=== PATIENT | male | born 1955 | race Caucasian/White ===

== ENCOUNTER 2016-07-27 08:09 | Inpatient (IN) | payer OTHER ==
[~2016-07-27] VITALS: Ht 170.2 cm; Wt 78.5 kg
[2016-07-27 08:13] VITALS: Ht 170.2 cm; Wt 78.5 kg
[2016-07-27] MEDS ORDERED: NITROGLYCERIN 2% 1 GM OINT PKT TD STA (08:26)
[2016-07-27] MEDS ORDERED: ASPIRIN 81 MG TAB PO STA (08:26)
--- NOTE | 2016-07-27 08:44 | RADRPT ---
PROCEDURE: XR Chest. CLINICAL INDICATION: Chest pain. TECHNIQUE: Single frontal view. COMPARISON: None. FINDINGS: There are calcifications in both lungs consistent with previous granulomatous disease. The lungs ar e otherwise clear with no airspace or interstitial disease. The heart size is normal. There is calcification in the aorta consistent with atherosclerosis. There is no pleural effusion. There is no pneumothorax. IMPRESSION: 1. Previous granulomatous disease. 2. Atherosclerosis. 3. Otherwise normal chest radiograph. RPTAT: QQ .Truong Castellano MD, Date Time Electronically viewed and signed by .Truong Castellano MD, on 07/27/2016 08:44 .R/
[2016-07-27] MEDS: NITROGLYCERIN (SL) 0.4 MG TAB SL PRN ×3 (08:48→08:57)
[2016-07-27 08:53] LABS: BASOPHIL # 0.1 10^3/ul (0.0-0.1); EOSINOPHILS # 0.1 10^3/ul (0.0-0.5); EOSINOPHILS % 1.5 % (0.0-7.0); HEMATOCRIT 36.3 % (42.0-52.0); HEMOGLOBIN 12.3 g/dl (14.0-18.0); LYMPHOCYTES # 2.4 10^3/ul (0.8-2.9); MEAN CORPUSCULAR HEMOGLOBIN 31.4 pg (29.0-33.0); MEAN CORPUSCULAR HGB CONC 33.8 g/dl (32.0-37.0); MEAN CORPUSCULAR VOLUME 92.9 fl (82.0-101.0); MONOCYTE # 0.7 10^3/ul (0.3-0.9); MONOCYTES % 9.8 % (0.0-11.0); NEUTROPHIL # 3.4 10^3/ul (1.6-7.5); NEUTROPHILS % 51.7 % (39.0-77.0); PLATELET COUNT 323 10^3/UL (140-440); RED BLOOD COUNT 3.91 10^6/ul (4.70-6.10); RED CELL DISTRIBUTION WIDTH 16.6 % (11.5-14.5); UNCORRECTED WBC 6.6 10^3/ul (4.8-10.8); WHITE BLOOD COUNT 6.6 10^3/ul (4.8-10.8)
[2016-07-27] MEDS ORDERED: IPRA4AER INHALATION (08:53)
[2016-07-27] MEDS ORDERED: ADV50050 INHALATION (08:53)
[2016-07-27] MEDS ORDERED: ALBU8.5H3 INH (08:54)
[2016-07-27] MEDS ORDERED: PROP10TA6 PO (08:57)
[2016-07-27] MEDS ORDERED: CLOP75TA27 PO (08:57)
[2016-07-27] MEDS ORDERED: PANT40TA3 PO (08:58)
[2016-07-27] MEDS ORDERED: ASPI-664 PO (08:58)
[2016-07-27] MEDS ORDERED: ATOR20TA38 PO (08:58)
[2016-07-27 09:03] LABS: INR 0.88; PARTIAL THROMBOPLASTIN TIME 30.2 Sec (25.0-35.0); PROTIME 11.9 Sec (12.2-14.2); PT RATIO 0.9
[2016-07-27 09:07] LABS: CHLORIDE 107 mmol/L (97-110); SODIUM 149 mmol/L (135-144)
[2016-07-27 09:08] LABS: POTASSIUM 4.8 mmol/L (3.5-5.1)
[2016-07-27] MEDS ORDERED: ONDANSETRON 4 MG INJ IV STA (09:08)
[2016-07-27] MEDS ORDERED: morphine 4 MG/ML VIAL IV STA ×2 (09:08→13:13)
[2016-07-27 09:10] LABS: ANION GAP 17 (8-16); CARBON DIOXIDE 30 mmol/L (21-31); CREATININE 0.94 mg/dl (0.61-1.24)
[2016-07-27 09:11] LABS: BLOOD UREA NITROGEN 20 mg/dl (7-20); CALCIUM 10.1 mg/dl (8.4-10.2); GLUCOSE 98 mg/dl (70-220)
[2016-07-27 09:12] LABS: CONDITION 1; LH ANALYZER COMMENTS 1
[2016-07-27 09:25] LABS: TROPONIN-I < 0.012 ng/ml (0.00-0.12)
[2016-07-27] MEDS ORDERED: ACETAMINOPHEN 325 MG TAB PO PRN ×2 (10:00→10:30)
[2016-07-27] MEDS ORDERED: ONDANSETRON 4 MG INJ IV PRN (10:00)
[2016-07-27] MEDS ORDERED: DOCUSATE SODIUM 100 MG CAP PO PRN (10:30)
[2016-07-27] MEDS ORDERED: NITROGLYCERIN (SL) 0.4 MG TAB SL PRN (10:30)
[2016-07-27] MEDS ORDERED: ALBUTEROL HFA 8 GM INHALER INH PRN (10:30)
[2016-07-27] MEDS ORDERED: ONDANSETRON 4 MG TAB PO PRN (10:30)
[2016-07-27] MEDS ORDERED: NACL 0.9% 3 ML SYG IV SCH (10:30)
--- NOTE | 2016-07-27 11:19 | ERA ---
ER Documentation Chief Complaint Date/Time DATE: 07/27/16 TIME: 11:17 Chief Complaint chest pain this morning at 0500 and sob hx 2 stents HPI Patient is a 61-year-old male with coronary disease who presents with chest pain. The symptoms started at 5 AM. He is concerned for a heart attack as he has had 2 stents placed in the past. He has constant pain which waxes and wanes. It radiates to his left shoulder. The patient took 81 mg of aspirin and 2 nitroglycerin tablets prior to coming to the ER. This is the patient's first visit to the ER. ROS All systems reviewed and are negative except as per history of present illness. Medications Home Meds Reported Medications Pantoprazole* (Protonix*) 40 Mg Tablet.dr, 40 MG PO DAILY, TAB 07/27/16 Aspirin (Low Dose Aspirin) 81 Mg Tablet.dr, 81 MG PO DAILY, #30 TAB 07/27/16 Atorvastatin Calcium* (Atorvastatin Calcium*) 20 Mg Tablet, 20 MG PO QHS, #30 TAB 07/27/16 Clopidogrel Bisulfate (Clopidogrel) 75 Mg Tablet, 75 MG PO DAILY, #30 TAB 07/27/16 Propranolol Hcl* (Propranolol Hcl*) Unknown Strength Tablet, PO DAILY, TAB PT SAYS HE TAKE MED HES NOT SURE HOW OFTEN HE TAKES OR THE DOSAGE PHARM HAS NO RECORD OF IT 07/27/16 Albuterol Sulfate* (Proair HFA*) 8.5 Gm Hfa.aer.ad, 2 PUFF INH Q6H Y for WHEEZING AND SOB, #1 INHALER 07/27/16 Albuterol/Ipratropium* (Combivent Respimat*) 20-100 Mcg/Inh - 4 Gm Aer.w.adap, 1 PUFF INHALATION QID, #1 INHALER 07/27/16 Salmeterol Xinaf-Fluticasone* (Advair*) 500/50 Diskus Inhaler, 1 INH INHALATION BID, #1 INHALER 07/27/16 Allergies Allergies: Coded Allergies: Penicillins (Verified Allergy, Severe, 07/27/16) Iodine and Iodide Containing Produc (Verified Allergy, Unknown, 07/27/16) PMhx/Soc History of Surgery: Yes (X 2 CARDO STENT PLACED IN MAR 2016 ) Anesthesia Reaction: No Hx Neurological Disorder: No Hx Respiratory Disorders: No Hx Cardiac Disorders: Yes (M.I. 2016) Hx Psychiatric Problems: No Hx Miscellaneous Medical Probl: No Hx Alcohol Use: No Hx Substance Use: No Hx Tobacco Use: No Smoking Status: Never smoker FmHx Family History: coronary disease Physical Exam Vitals Vital Signs Date Time Temp Pulse Resp B/P Pulse Ox O2 Delivery O2 Flow Rate FiO2 07/27/16 09:29 74 22 131/80 99 Nasal Cannula 2.0 07/27/16 08:55 72 116/72 100 Room Air 07/27/16 08:36 Nasal Cannula 2 07/27/16 08:28 98.6 70 22 155/77 100 Room Air 07/27/16 08:13 98.3 74 20 169/76 99 Physical Exam Const: Mild distress secondary to pain Head: Atraumatic Eyes: Normal Conjunctiva ENT: Normal External Ears, Nose and Mouth. Neck: Full range of motion..~ No meningismus. Resp: Clear to auscultation bilaterally Cardio: Regular rate and rhythm, no murmurs Abd: Soft, non tender, non distended. Normal bowel sounds Skin: No petechiae or rashes Back: No midline or flank tenderness Ext: No cyanosis, or edema Neur: Awake and alert Psych: Normal Mood and Affect Result Diagram: 07/27/16 0830 07/27/16 0830 Results 24 hrs Laboratory Tests Test 07/27/16 08:30 Activated Partial Thromboplast Time 30.2Sec Anion Gap 17 Basophils # 0.110^3/ul Basophils % 1.0% Blood Morphology Comment Blood Urea Nitrogen 20mg/dl Calcium Level 10.1mg/dl Carbon Dioxide Level 30mmol/L Chloride Level 107mmol/L Creatinine 0.94mg/dl Eosinophils # 0.110^3/ul Eosinophils % 1.5% Glucose Level 98mg/dl Hematocrit 36.3% Hemoglobin 12.3g/dl INR International Normalized Ratio 0.88 Lymphocytes # 2.410^3/ul Lymphocytes % 36.0% Mean Corpuscular Hemoglobin 31.4pg Mean Corpuscular Hemoglobin Concent 33.8g/dl Mean Corpuscular Volume 92.9fl Mean Platelet Volume 9.0fl Monocytes # 0.710^3/ul Monocytes % 9.8% Neutrophils # 3.410^3/ul Neutrophils % 51.7% Nucleated Red Blood Cells # 0.010^3/ul Nucleated Red Blood Cells % 0.0/100WBC Platelet Count 73974^3/UL Potassium Level 4.8mmol/L Prothrombin Time 11.9Sec Prothrombin Time Ratio 0.9 Red Blood Count 3.9110^6/ul Red Cell Distribution Width 16.6% Sodium Level 149mmol/L Troponin I < 0.012ng/ml White Blood Count 6.610^3/ul Current Medications Medications (Trade) Dose Ordered Sig/Amanda Route PRN Reason Start Time Stop Time Status Last Admin Dose Admin Aspirin (Aspirin) 162 mg ONCE STAT PO 07/27/16 08:26 07/27/16 08:32 DC 07/27/16 08:45 Nitroglycerin (Nitroglycerin 2% Oint) 1 inch ONCE STAT TD 07/27/16 08:26 07/27/16 08:32 DC 07/27/16 08:49 Nitroglycerin (Nitroglycerin (Sl Tab) 0.4 Mg) 1 tab Q5M UP TO 3 DOSES PRN SL CHEST PAIN 07/27/16 08:30 07/27/16 08:57 Morphine Sulfate (morphine) 4 mg ONCE STAT IV 07/27/16 09:08 07/27/16 09:09 DC 07/27/16 09:33 Ondansetron HCl (Zofran Inj) 4 mg ONCE STAT IV 07/27/16 09:08 07/27/16 09:09 DC 07/27/16 09:33 Ondansetron HCl (Zofran Inj) 4 mg ER BRIDGE PRN IV NAUSEA AND/OR VOMITING 07/27/16 10:00 07/28/16 09:59 Acetaminophen (Tylenol Tab) 650 mg ER BRIDGE PRN PO MILD PAIN/FEVER 07/27/16 10:00 07/28/16 09:59 IV Flush (NS 3 ml) 3 ml PER PROTOCOL IV 07/27/16 10:30 UNV Ondansetron HCl (Zofran Tab) 4 mg Q6H PRN PO NAUSEA AND/OR VOMITING 07/27/16 10:30 UNV Aspirin (Aspirin) 81 mg DAILY PO 07/28/16 09:00 UNV Nitroglycerin (Nitroglycerin (Sl Tab) 0.4 Mg) 1 tab Q5M PRN SL CHEST PAIN 07/27/16 10:30 UNV Acetaminophen (Tylenol Tab) 650 mg Q6H PRN PO PAIN LEVEL 1-3 OR FEVER 07/27/16 10:30 UNV Morphine Sulfate (morphine) 1 mg Q4H PRN IV PAIN LEVEL 7-10 07/27/16 10:30 UNV Docusate Sodium (Colace) 100 mg Q12H PRN PO CONSTIPATION 07/27/16 10:30 UNV Pantoprazole (Protonix Tab) 40 mg DAILY@06 PO 07/28/16 06:00 UNV Enoxaparin Sodium (Lovenox) 40 mg DAILY SC 07/28/16 09:00 UNV Albuterol (Ventolin Hfa) 2 puff Q6H PRN INH WHEEZING AND SOB 07/27/16 10:30 UNV Aspirin (Halfprin) 81 mg DAILY PO 07/28/16 09:00 UNV Atorvastatin Calcium (Lipitor) 20 mg QHS PO 07/27/16 21:00 UNV Clopidogrel Bisulfate (plaVIX) 75 mg DAILY PO 07/28/16 09:00 UNV Pantoprazole (Protonix Tab) 40 mg DAILY PO 07/28/16 09:00 UNV Salmeterol Xinafoate/ Fluticasone (Advair 500/50 Diskus) 1 inh BID INH 07/27/16 21:00 UNV Miscellaneous Information 1 puff QID INHALATION 07/27/16 13:00 UNV Metoprolol Tartrate (Lopressor) 25 mg BID PO 07/27/16 21:00 UNV Procedures/MDM EKG #1 read by me: Rate/Rhythm: Regular rate and rhythm at a rate of 72 Intervals: Normal Impression: No evidence of ischemia or arrhythmia EKG #2 pending at this time. PROCEDURE: XR Chest. CLINICAL INDICATION: Chest pain. TECHNIQUE: Single frontal view. COMPARISON: None. FINDINGS: There are calcifications in both lungs consistent with previous granulomatous disease. The lungs are otherwise clear with no airspace or interstitial disease. The heart size is normal. There is calcification in the aorta consistent with atherosclerosis. There is no pleural effusion. There is no pneumothorax. IMPRESSION: 1. Previous granulomatous disease. 2. Atherosclerosis. 3. Otherwise normal chest radiograph. RPTAT: QQ .Truong Castellano MD, MD Date Time Electronically viewed and signed by .Truong Castellano MD, MD on 07/27/2016 08:44 Patient is a 61-year-old male with coronary disease who presents with chest pain. The patient has anemia with a hemoglobin of 12.3 but does not require transfusion at this time. The patient was given aspirin nitroglycerin as well as morphine for possible acute coronary syndrome. At this point I doubt pneumonia, pneumothorax, pulmonary embolism, or aortic dissection. However given his age and cardiac risk factors I do believe he needs to be admitted to a telemetry bed to rule out acute coronary syndrome. I spoke with Dr. Matos from the panel team for admission as the patient has [employer] insurance and has never been admitted before. Departure Diagnosis: Primary Impression: Chest pain Qualified Code: R07.9 - Chest pain, unspecified type Additional Impressions: Anemia Qualified Code: D64.9 - Anemia, unspecified type Hypernatremia Condition: LISBET Nance MD Jul 27, 2016 11:19
[2016-07-27] MEDS: ALBUTEROL/IPRATROPIUM (NEB) 3 ML AMP HHN SCH ×2 (12:48→19:55)
[2016-07-27 13:18] LABS: CREATINE KINASE 68 IU/L (23-200)
[2016-07-27 13:35] LABS: TROPONIN-I < 0.012 ng/ml (0.00-0.12)
[2016-07-27 13:36] LABS: CK-MB 1.12 ng/ml (0.0-2.4)
[2016-07-27] MEDS ORDERED: ALBUTEROL/IPRATROPIUM (NEB) 3 ML AMP HHN PRN (14:30)
[2016-07-27 14:32] LABS: CREATINE KINASE 63 IU/L (23-200)
[2016-07-27 14:43] LABS: CK-MB 1.14 ng/ml (0.0-2.4)
[2016-07-27 14:49] LABS: TROPONIN-I < 0.012 ng/ml (0.00-0.12)
[2016-07-27 16:36] VITALS: TEMP 98.1
[2016-07-27] MEDS: morphine 2 MG INJ IV PRN ×2 (16:49→19:04)
--- NOTE | 2016-07-27 17:46 | RADRPT ---
Echocardiogram Report Patient Name: DREW VELASQUEZ Gender: Male Date: 1955 Study Date: 27-Jul-2016 Dentist/Owner: TOMASA Morales Location: [facility] Ref. Physician: JAQUELINE WHITE Quality: Good Procedures: Transthoracic echocardiogram with complete 2D, M-Mode, and doppler examination. Indications: Chest Pain. 2D/M Mode Doppler Measurement Value Normal Ranges Measurement Value Normal Ranges LVIDd 2D 4.2 3.5 - 5.6 cm AV Peak Butch 1.3 m/sec LVIDs 2D 2.5 2.1 - 4.1 cm AV Peak PG 6.0 mmHg FS 2D 39.5 % LVOT Peak Butch 1.1 m/sec LVPWd 2D 1.0 0.6 - 1.1 cm LVOT Peak PG 5.0 mmHg IVSd 2D 0.9 0.6 - 1.1 cm MV E Peak Butch 0.8 m/sec IVS/LVPW 2D 0.9 MV Decel Time 21 msec AoR Diam 2D 2.4 2.0 - 3.7 cm LA/Ao 2D 2 0 - 1 EDV 2D 73.0 cm3 ESV 2D 16.2 cm3 LA Dimen 2D 3.7 2.3 - 4.0 cm Findings Left Ventricle: Normal left ventricular systolic function. Normal left ventricular cavity size. Normal left ventricular wall thickness. Ejection fraction is visually estimated at 5560 %. Tissue Doppler/Mitral Doppler indices are consistent with impaired relaxation (Stage I diastolic dysfunction). Right Ventricle: Normal right ventricular size. Normal right ventricular systolic function. Left Atrium: The left atrium is normal in size. Right Atrium: The right atrium is normal in size. Mitral Valve: Normal appearance of the mitral valve. Mild mitral annular calcification. Mild mitral valve regurgitation. Aortic Valve: No hemodynamically significant aortic stenosis by doppler. Aortic cusps appear mildly calcified. Trace aortic valve regurgitation. Tricuspid Valve: Normal appearance of the tricuspid valve. Unable to obtain RVSP due to minimal presence of tricuspid regurgitation. Pericardium: Normal pericardium with no significant pericardial effusion. Aorta: Normal aortic root. IVC: Normal size and normal respiratory collapse consistent with normal right atrial pressure. Conclusions 1.The left ventricle is normal in size and systolic function. 2.Estimated left ventricular ejection fraction of 55-60%. 3.Mild left ventricular diastolic dysfunction. Electronically Signed By: Vinod Beasley 27-Jul-2016 17:45:26 -0800 Patient Name: DREW VELASQUEZ Study Date: 27-Jul-[id number]
[2016-07-27] MEDS ORDERED: morphine 4 MG/ML VIAL IV ONE (18:30)
--- NOTE | 2016-07-27 18:33 | HP ---
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 CHIEF COMPLAINT: Chest pain. HISTORY OF PRESENT ILLNESS: This is a 61-year-old gentleman with past medical history of coronary a rtery disease, myocardial infarction, status post PCI, COPD, nicotine abuse in remission, dyslipidem ia, GERD, who presents to [facility] secondary to having left-sided chest pain ___ _ without any diaphoresis or shortness of breath. The pain started yesterday noon, has been continu ous, is not alleviated or aggravated with any medication or movement. On arrival to emergency room, the EKG showed normal sinus rhythm with regular rate and rhythm, normal interval, no evidence of is chemia or arrhythmia. Troponin was found to be negative. The patient was treated with nitroglyceri n and at this time, the patient continues to complain of having minor chest discomfort without any s hortness of breath. Denies any fever, chills, weight gain, weight loss, anorexia. No lower extremi ty edema. No diabetes mellitus, diaphoresis, headache, dysuria, hematuria, urgency, incontinence. No neck pain, no restricted range of motion in upper and lower extremities or any other discomfort. PAST MEDICAL AND SURGICAL HISTORY: As above per HPI. MEDICATIONS 1. ProAir HFA. 2. Combivent. 3. Aspirin. 4. Lipitor. 5. Plavix. 6. Protonix. 7. Propranolol. 8. Solu-Medrol. ALLERGIES: IODINE AND PENICILLIN. SOCIAL HISTORY: Positive for history of smoking, which he quit about a year ago after his bypass, r emote history of alcohol intake. No illicit drugs. Lives at home with his girlfriend. REVIEW OF SYSTEMS: As above per HPI, otherwise 12 review of systems has been found to be negative. PHYSICAL EXAMINATION: VITAL SIGNS: Temperature 98.6, pulse 72, respiration 22, blood pressure 170/70, oxygen saturation 9 8% on 2 liters via nasal cannula. GENERAL APPEARANCE: The patient is lying in bed comfortably without any distress. He is awake, alireza rt, oriented. He is able to answer my questions properly. EYES AND ENT: Conjunctivae and lids are normal. Pupils are normal. Extraocular normal. Hearing g rossly normal. Lips and gums are normal. Oral mucosa is moist. NECK: Supple. Trachea is midline. No lymphadenopathy. RESPIRATORY: Effort is normal. Positive wheezing bilateral upper lung umaña. No crackles, no ral es. GASTROINTESTINAL: Abdomen is soft, nontender, not distended. Bowel sounds present. No guarding, n o rebound. GENITOURINARY: Deferred. MUSCULOSKELETAL: Upper and lower extremities within normal limits. There is no erythema, stasis de rmatitis bilateral lower extremities. NEUROLOGIC: Cranial nerves II through XII are grossly intact. PSYCHIATRIC: Normal judgment and insight. Alert and oriented x3. Mood and affect is normal. LABORATORY WORK AND IMAGING: WBC 6.6, hemoglobin 12.3, hematocrit 36.3, platelets 323. Sodium 149, potassium 4.8, chloride 107, bicarbonate 30, BUN 20, creatinine 0.94, glucose 98, calcium 10. Trop onin negative x2. PT 11.9, INR 0.88. ASSESSMENT AND PLAN: 1. Atypical chest pain with a history of coronary artery disease and percutaneous coronary interven tion. The patient will continue on aspirin, statin and Plavix and will be placed on beta karel. Cardiology has been consulted. We will follow up 2D echocardiogram and serial troponins. 2. Dyslipidemia. Continue statin. Follow up lipid panel. 3. Essential hypertension, well-controlled. 4. History of chronic obstructive pulmonary disease with remote history of nicotine dependency in r emission. Continue Combivent, Advair breathing treatment p.r.n. 5. Deep venous thrombosis prophylaxis, on Lovenox. 6. Gastrointestinal prophylaxis, on proton pump inhibitor. 7. We will continue to monitor patient closely. Further recommendations, management and treatment as per clinical course. Total amount of time was spent for evaluation of patient and admission workup: 45 minutes. Dictated By: JAQUELINE ZABALA/NTS Conf#: [id number] DID#: [id number]
--- NOTE | 2016-07-27 18:40 | CONS ---
Date/Time of Note Date/Time of Note DATE: 07/27/16 TIME: 18:26 Assessment/Plan Assessment/Plan Chief Complaint/Hosp Course Assessment: Chest pain - ruled out for myocardial infarction Coronary artery disease - status post coronary stent x 2 (March 2016, [facility]) Hypertension Dyslipidemia Chronic obstructive pulmonary disease Bilateral lower extremity cellulitis Recommendations: -echocardiogram showed LVEF 55-60%, mild diastolic dysfunction -start carvedilol 6.25mg BID, up titrate as needed/tolerated -start Imdur 30mg daily -continue aspirin 81mg and clopidogrel 75mg daily -continue atorvastatin 20mg daily, follow up lipid panel -consider cardiac stress testing, but patient reports inability to walk on treadmill and prior adverse reaction to pharmacological stress (details unknown ) - will defer to outpatient retail clerk who patient reports he has been seeing for 15 years Problems: Consultation Date/Type/Reason Admit Date/Time Jul 27, 2016 at 17:34 Type of Consultation: Cardiology Reason for Consultation chest pain Referring Provider: JAQUELINE WHITE MD Hx of Present Illness The patient is a 61 year-old male who presents with chest pain. He reports onset of chest pressure while getting up to take a shower at 5 AM this morning. The pain has been waxing and waning since then. Troponins have been negative. He previously had chest pain and underwent implantation of two coronary stents in March 2016. 14 point review of systems negative other than per HPI. Past Medical History Coronary artery disease - status post coronary stent x 2 (March 2016, [facility]) Dyslipidemia Chronic obstructive pulmonary disease Nephrolithiasis History of posterior skull fracture Past Surgical History Cervical spine fusion Lumbar spine fusion Surgery for undescended testicles Tonsillectomy Family History Significant Family History: heart disease (myocardial infarction - mother, brother) Social History Alcohol Use: sober (quit 27 years ago) Smoking Status: Former smoker (quit March 2016) Drug Use: none Exam/Review of Systems Vital Signs Vitals Vital Signs Date Time Temp Pulse Resp B/P Pulse Ox O2 Delivery O2 Flow Rate FiO2 07/27/16 16:36 98.1 70 20 105/62 98 Nasal Cannula 2.0 Exam Constitutional: alert, well developed Psych: nl mood/affect, no complaints Head: atraumatic, normocephalic Eyes: nl conjunctiva, nl lids ENMT: nl external ears & nose, nl nasal mucosa & septum Neck: non-tender, supple, No jvd Respiratory: wheezing, No crackles/rales Cardiovascular: regular rate and rhythm Gastrointestinal: non-tender, soft Extremities: No clubbing, No cyanosis, No edema Skin: other (bilateral lower extremity erythema) Results Result Diagram: 07/27/16 0830 07/27/16 0830 Results 24 hrs Laboratory Tests Test 07/27/16 08:30 07/27/16 13:00 07/27/16 14:20 Activated Partial Thromboplast Time 30.2 Anion Gap 17 H Basophils # 0.1 Basophils % 1.0 Blood Morphology Comment Blood Urea Nitrogen 20 Calcium Level 10.1 Carbon Dioxide Level 30 Chloride Level 107 Creatinine 0.94 Eosinophils # 0.1 Eosinophils % 1.5 Glucose Level 98 Hematocrit 36.3 L Hemoglobin 12.3 L INR International Normalized Ratio 0.88 Lymphocytes # 2.4 Lymphocytes % 36.0 Mean Corpuscular Hemoglobin 31.4 Mean Corpuscular Hemoglobin Concent 33.8 Mean Corpuscular Volume 92.9 Mean Platelet Volume 9.0 Monocytes # 0.7 Monocytes % 9.8 Neutrophils # 3.4 Neutrophils % 51.7 Nucleated Red Blood Cells # 0.0 Nucleated Red Blood Cells % 0.0 Platelet Count 323 Potassium Level 4.8 Prothrombin Time 11.9 L Prothrombin Time Ratio 0.9 Red Blood Count 3.91 L Red Cell Distribution Width 16.6 H Sodium Level 149 H Troponin I < 0.012 < 0.012 < 0.012 White Blood Count 6.6 Creatine Kinase 68 63 Creatine Kinase Index 1.6 1.8 Creatinine Kinase MB (Mass) 1.12 1.14 Medications Medications Current Medications Ondansetron HCl (Zofran Tab) 4 mg Q6H PRN PO NAUSEA AND/OR VOMITING; Start at 10:30 Nitroglycerin (Nitroglycerin (Sl Tab) 0.4 Mg) 1 tab Q5M PRN SL CHEST PAIN; Start 07/27/16 at 10:30 Acetaminophen (Tylenol Tab) 650 mg Q6H PRN PO PAIN LEVEL 1-3 OR FEVER; Start at 10:30 Morphine Sulfate (morphine) 1 mg Q4H PRN IV PAIN LEVEL 7-10 Last administered on 07/27/16t 16:49; Admin Dose 1 MG; Start 07/27/16 at 10:30 Docusate Sodium (Colace) 100 mg Q12H PRN PO CONSTIPATION; Start 07/27/16 at 10: 30 Pantoprazole (Protonix Tab) 40 mg DAILY@06 PO ; Start 07/28/16 at 06:00 Enoxaparin Sodium (Lovenox) 40 mg DAILY SC ; Start 07/28/16 at 09:00 Albuterol (Ventolin Hfa) 2 puff Q6H PRN INH WHEEZING AND SOB; Start 07/27/16 at 10:30 Aspirin (Halfprin) 81 mg DAILY PO ; Start 07/28/16 at 09:00 Atorvastatin Calcium (Lipitor) 20 mg QHS PO ; Start 07/27/16 at 21:00 Clopidogrel Bisulfate (plaVIX) 75 mg DAILY PO ; Start 07/28/16 at 09:00 Salmeterol Xinafoate/ Fluticasone (Advair 500/50 Diskus) 1 inh BID INH ; Start 07/27/16 at 21:00 Metoprolol Tartrate (Lopressor) 25 mg BID PO ; Start 07/27/16 at 21:00 EUSEBIA HAMILTON MD Jul 27, 2016 18:38
[2016-07-27 19:51] VITALS: BP 96/57; RESP 16
[2016-07-27 20:00] VITALS: BP 97/58; RESP 20
[2016-07-27 20:29] VITALS: PULSE 82
[2016-07-27] MEDS ORDERED: ATORVASTATIN 20 MG TAB PO SCH (21:00)
[2016-07-27] MEDS ORDERED: METOPROLOL 25 MG TAB PO SCH (21:00)
[2016-07-27] MEDS: SALMETEROL/FLUTICASONE 500/50 INHA INH SCH (21:06)
[2016-07-28] VITALS (11 sets, daily range): BP systolic 88–123; BP diastolic 50–67; PULSE 61–82; RESP 18–20
[2016-07-28] MEDS: ALBUTEROL/IPRATROPIUM (NEB) 3 ML AMP HHN SCH ×5 (01:35→23:35)
[2016-07-28] MEDS: PANTOPRAZOLE (EC) 40 MG TAB PO SCH (05:56)
[2016-07-28] MEDS: morphine 2 MG INJ IV PRN ×4 (07:32→21:34)
[2016-07-28] MEDS: SALMETEROL/FLUTICASONE 500/50 INHA INH SCH ×2 (08:54→20:43)
[2016-07-28] MEDS: ASPIRIN (EC) 81 MG TAB PO SCH (08:54)
[2016-07-28] MEDS: CLOPIDOGREL 75 MG TAB PO SCH (08:54)
[2016-07-28] MEDS: ISOSORBIDE MONONITRATE(SR)30 MG TAB PO SCH (08:55)
[2016-07-28] MEDS ORDERED: ASPIRIN 81 MG TAB PO SCH (09:00)
[2016-07-28] MEDS ORDERED: PANTOPRAZOLE (EC) 40 MG TAB PO SCH (09:00)
[2016-07-28] MEDS: ENOXAPARIN 40 MG/0.4 ML SYG SC SCH (09:11)
[2016-07-28 10:39] LABS: BASOPHILS % 0.6 % (0.0-2.0); EOSINOPHILS % 0.7 % (0.0-7.0); HEMATOCRIT 32.8 % (42.0-52.0); HEMOGLOBIN 10.9 g/dl (14.0-18.0); LYMPHOCYTES # 1.5 10^3/ul (0.8-2.9); LYMPHOCYTES % 23.9 % (15.0-51.0); MEAN CORPUSCULAR HEMOGLOBIN 30.7 pg (29.0-33.0); MEAN CORPUSCULAR HGB CONC 33.1 g/dl (32.0-37.0); MEAN CORPUSCULAR VOLUME 92.8 fl (82.0-101.0); MEAN PLATELET VOLUME 9.2 fl (7.4-10.4); MONOCYTE # 0.5 10^3/ul (0.3-0.9); MONOCYTES % 7.1 % (0.0-11.0); NEUTROPHIL # 4.3 10^3/ul (1.6-7.5); NEUTROPHILS % 67.7 % (39.0-77.0); PLATELET COUNT 283 10^3/UL (140-440); RED BLOOD COUNT 3.54 10^6/ul (4.70-6.10); RED CELL DISTRIBUTION WIDTH 16.6 % (11.5-14.5); UNCORRECTED WBC 6.4 10^3/ul (4.8-10.8); WHITE BLOOD COUNT 6.4 10^3/ul (4.8-10.8)
[2016-07-28 10:41] LABS: CONDITION 1; LH ANALYZER COMMENTS 1
[2016-07-28 10:44] LABS: POTASSIUM 3.7 mmol/L (3.5-5.1)
[2016-07-28 10:47] LABS: CREATININE 0.78 mg/dl (0.61-1.24)
[2016-07-28 10:48] LABS: CALCIUM 8.9 mg/dl (8.4-10.2); CHOL/HDL RATIO 5.2 RATIO; MAGNESIUM 1.8 mg/dl (1.7-2.5)
[2016-07-28 11:19] LABS: THYROID STIMULATING HORMONE 1.56 MIU/L (0.465-4.680)
[2016-07-28] MEDS: CLINDAMYCIN 300 MG/D5W (PMX) 50 ML IVPB SCH ×2 (13:49→23:35)
--- NOTE | 2016-07-28 15:04 | PN ---
Date/Time of Note Date/Time of Note DATE: 07/28/16 TIME: 15:00 Assessment/Plan VTE Prophylaxis VTE Prophylaxis Intervention: LMWH Lines/Catheters IV [facility]from [facility] Saline Lock Urinary Cath still in place: No Assessment/Plan Assessment/Plan 1. Chest pain with local tenderness, musculoskeletal, try celebrex 2. Bilateral lower extremity cellulitis, on clindamycin 3. CAD, s/p PCI/stent, follow up with cardiology 4. Dyslipidemia. Continue statin. 5. Essential hypertension, well-controlled. 6. History of chronic obstructive pulmonary disease with remote history of nicotine dependency in remission. Continue Combivent, Advair breathing treatment p.r.n. 7. Deep venous thrombosis prophylaxis, on Lovenox. 8. Gastrointestinal prophylaxis, on proton pump inhibitor Subjective 24 Hr Interval Summary Free Text/Dictation still has chest pain, left upper chest radiated to left upper lateral arm/ shoulder Exam/Review of Systems Vital Signs Vitals Vital Signs Date Time Temp Pulse Resp B/P Pulse Ox O2 Delivery O2 Flow Rate FiO2 07/28/16 12:45 62 07/28/16 11:54 98.1 18 88/50 94 07/28/16 08:53 21 07/27/16 20:00 Room Air 07/27/16 16:36 2.0 Exam Constitutional: alert, oriented, well developed Psych: nl mood/affect, no complaints Head: atraumatic, normocephalic Eyes: EOMI, PERRL, nl conjunctiva, nl lids, nl sclera ENMT: mucosa pink and moist, nl external ears & nose, nl lips & teeth, nl nasal mucosa & septum Neck: non-tender, supple Respiratory: clear to auscultation, normal air movement, No congested cough, No crackles/rales, No diminished breath sounds, No intercostal retraction, No labored breathing, No respirations, No tactile fremitus, No wheezing Cardiovascular: nl pulses, regular rate and rhythm, No S3, No S4, No bruits, No diastolic murmur, No edema, No gallop, No irregular rhythm, No jugular venous distention (JVD), No murmurs/extra sounds, No rub, No systolic murmur Gastrointestinal: nl liver, spleen, non-tender, soft, No ascites, No bowel sounds, No distended, No firm, No hepatomegaly, No mass , No rebound or guarding, No splenomegaly, No surgical scars, No tender Musculoskeletal: nl extremities to inspection Extremities: normal pulses, other (warm with swelling and redness on both lower extremities) Neurological: FACILITY OPERATIONS MANAGER II-XII intact, nl mental status, nl speech, nl strength Lymph: nl lymph nodes Results Result Diagram: 07/28/1692407/28/16 0925 Results 24 hrs Laboratory Tests Test 07/28/16 09:25 Anion Gap 16 Basophils # 0.0 Basophils % 0.6 Blood Morphology Comment Blood Urea Nitrogen 16 Calcium Level 8.9 Carbon Dioxide Level 27 Chloride Level 101 Cholesterol Level 173 Cholesterol/HDL Ratio 5.2 Creatinine 0.78 Eosinophils # 0.0 Eosinophils % 0.7 Glucose Level 175 HDL Cholesterol 33 Hematocrit 32.8 L Hemoglobin 10.9 L Hemoglobin A1c 5.9 LDL Cholesterol, Calculated 115 Lymphocytes # 1.5 Lymphocytes % 23.9 Magnesium Level 1.8 Mean Corpuscular Hemoglobin 30.7 Mean Corpuscular Hemoglobin Concent 33.1 Mean Corpuscular Volume 92.8 Mean Platelet Volume 9.2 Monocytes # 0.5 Monocytes % 7.1 Neutrophils # 4.3 Neutrophils % 67.7 Nucleated Red Blood Cells # 0.0 Nucleated Red Blood Cells % 0.0 Platelet Count 283 Potassium Level 3.7 Red Blood Count 3.54 L Red Cell Distribution Width 16.6 H Sodium Level 140 Thyroid Stimulating Hormone (TSH) 1.560 Triglycerides Level 124 White Blood Count 6.4 Medications Medications Current Medications Ondansetron HCl (Zofran Tab) 4 mg Q6H PRN PO NAUSEA AND/OR VOMITING; Start at 10:30 Acetaminophen (Tylenol Tab) 650 mg Q6H PRN PO PAIN LEVEL 1-3 OR FEVER; Start at 10:30 Docusate Sodium (Colace) 100 mg Q12H PRN PO CONSTIPATION; Start 07/27/16 at 10: 30 Pantoprazole (Protonix Tab) 40 mg DAILY@06 PO ; Start 07/28/16 at 06:00 Enoxaparin Sodium (Lovenox) 40 mg DAILY SC Last administered on 07/28/16t 09:11 ; Admin Dose 40 MG; Start 07/28/16 at 09:00 Albuterol (Ventolin Hfa) 2 puff Q6H PRN INH WHEEZING AND SOB; Start 07/27/16 at 10:30 Aspirin (Halfprin) 81 mg DAILY PO Last administered on 07/28/16 08:54; Admin Dose 81 MG; Start 07/28/16 at 09:00 Atorvastatin Calcium (Lipitor) 20 mg QHS PO Last administered on 07/27/16 21: 06; Admin Dose 20 MG; Start 07/27/16 at 21:00 Clopidogrel Bisulfate (plaVIX) 75 mg DAILY PO Last administered on 07/28/16 08 :54; Admin Dose 75 MG; Start 07/28/16 at 09:00 Salmeterol Xinafoate/ Fluticasone (Advair 500/50 Diskus) 1 inh BID INH Last administered on 07/28/16 08:54; Admin Dose 1 INH; Start 07/27/16 at 21:00 Carvedilol (Coreg) 6.25 mg BID PO Last administered on 07/28/16 08:55; Admin Dose 6.25 MG; Start 07/27/16 at 21:00 Isosorbide Mononitrate (Imdur) 30 mg DAILY PO Last administered on 07/28/16 08 :55; Admin Dose 30 MG; Start 07/28/16 at 09:00 Morphine Sulfate 2 mg 2 mg Q4H PRN IV SEVERE PAIN LEVEL 7-10 Last administered on 07/28/16 12:45; Admin Dose 2 MG; Start 07/28/16 at 07:30 Clindamycin HCl/ Dextrose (Cleocin 300 Mg/ D5W (Pmx)) 50 ml @ 100 mls/hr Q8 IVPB Last administered on 07/28/16 13:49; Admin Dose 100 MLS/HR; Start at 14:00 VENTURA DARDEN MD Jul 28, 2016 15:04
[2016-07-28] MEDS: CELECOXIB 100 MG CAP PO SCH (17:20)
--- NOTE | 2016-07-28 18:22 | CONS ---
Date/Time of Note Date/Time of Note DATE: 07/28/16 TIME: 18:19 Assessment/Plan Assessment/Plan Chief Complaint/Hosp Course Assessment: Chest pain - ruled out for myocardial infarction, possibly musculoskeletal Coronary artery disease - status post coronary stent x 2 (March 2016, [facility]) Hypertension Dyslipidemia Chronic obstructive pulmonary disease Bilateral lower extremity cellulitis Recommendations: -echocardiogram showed LVEF 55-60%, mild diastolic dysfunction -continue carvedilol 6.25mg BID, Imdur 30mg daily -continue aspirin 81mg and clopidogrel 75mg daily -increase atorvastatin to 40mg daily, goal LDL<70 -consider cardiac stress testing, but patient reports inability to walk on treadmill and prior adverse reaction to pharmacological stress (details unknown ) - will defer to outpatient florist manager who patient reports he has been seeing for 15 years -antibiotics per primary team Problems: Consultation Date/Type/Reason Admit Date/Time Jul 27, 2016 at 17:34 Initial Consult Date Type of Consultation: Cardiology 24 HR Interval Summary Free Text/Dictation Continues to have chest pain with tenderness to palpitation. Detailed Summary Additional Comments 14 point review of systems without changes. Exam/Review of Systems Vital Signs Vitals Vital Signs Date Time Temp Pulse Resp B/P Pulse Ox O2 Delivery O2 Flow Rate FiO2 07/28/16 17:38 98.1 82 105/67 96 Room Air 07/28/16 15:49 18 07/28/16 08:53 21 07/27/16 16:36 2.0 Exam Constitutional: alert, well developed Psych: nl mood/affect, no complaints Head: atraumatic, normocephalic Eyes: nl conjunctiva, nl lids ENMT: nl external ears & nose, nl nasal mucosa & septum Neck: non-tender, supple, No jvd Respiratory: wheezing, No crackles/rales Cardiovascular: regular rate and rhythm Gastrointestinal: non-tender, soft Extremities: No clubbing, No cyanosis, No edema Skin: other (bilateral lower extremity erythema) Results Result Diagram: 07/28/16 0925 07/28/16 0925 Results 24 hrs Laboratory Tests Test 07/28/16 09:25 Anion Gap 16 Basophils # 0.0 Basophils % 0.6 Blood Morphology Comment Blood Urea Nitrogen 16 Calcium Level 8.9 Carbon Dioxide Level 27 Chloride Level 101 Cholesterol Level 173 Cholesterol/HDL Ratio 5.2 Creatinine 0.78 Eosinophils # 0.0 Eosinophils % 0.7 Glucose Level 175 HDL Cholesterol 33 Hematocrit 32.8 L Hemoglobin 10.9 L Hemoglobin A1c 5.9 LDL Cholesterol, Calculated 115 Lymphocytes # 1.5 Lymphocytes % 23.9 Magnesium Level 1.8 Mean Corpuscular Hemoglobin 30.7 Mean Corpuscular Hemoglobin Concent 33.1 Mean Corpuscular Volume 92.8 Mean Platelet Volume 9.2 Monocytes # 0.5 Monocytes % 7.1 Neutrophils # 4.3 Neutrophils % 67.7 Nucleated Red Blood Cells # 0.0 Nucleated Red Blood Cells % 0.0 Platelet Count 283 Potassium Level 3.7 Red Blood Count 3.54 L Red Cell Distribution Width 16.6 H Sodium Level 140 Thyroid Stimulating Hormone (TSH) 1.560 Triglycerides Level 124 White Blood Count 6.4 Medications Medications Current Medications Ondansetron HCl (Zofran Tab) 4 mg Q6H PRN PO NAUSEA AND/OR VOMITING; Start at 10:30 Acetaminophen (Tylenol Tab) 650 mg Q6H PRN PO PAIN LEVEL 1-3 OR FEVER; Start at 10:30 Docusate Sodium (Colace) 100 mg Q12H PRN PO CONSTIPATION; Start 07/27/16 at 10: 30 Pantoprazole (Protonix Tab) 40 mg DAILY@06 PO ; Start 07/28/16 at 06:00 Enoxaparin Sodium (Lovenox) 40 mg DAILY SC Last administered on 07/28/16 09:11 ; Admin Dose 40 MG; Start 07/28/16 at 09:00 Albuterol (Ventolin Hfa) 2 puff Q6H PRN INH WHEEZING AND SOB; Start 07/27/16 at 10:30 Aspirin (Halfprin) 81 mg DAILY PO Last administered on 07/28/16 08:54; Admin Dose 81 MG; Start 07/28/16 at 09:00 Atorvastatin Calcium (Lipitor) 20 mg QHS PO Last administered on 07/27/16 21: 06; Admin Dose 20 MG; Start 07/27/16 at 21:00 Clopidogrel Bisulfate (plaVIX) 75 mg DAILY PO Last administered on 07/28/16 08 :54; Admin Dose 75 MG; Start 07/28/16 at 09:00 Salmeterol Xinafoate/ Fluticasone (Advair 500/50 Diskus) 1 inh BID INH Last administered on 07/28/16 08:54; Admin Dose 1 INH; Start 07/27/16 at 21:00 Carvedilol (Coreg) 6.25 mg BID PO Last administered on 07/28/16 08:55; Admin Dose 6.25 MG; Start 07/27/16 at 21:00 Isosorbide Mononitrate (Imdur) 30 mg DAILY PO Last administered on 07/28/16 08 :55; Admin Dose 30 MG; Start 07/28/16 at 09:00 Morphine Sulfate 2 mg 2 mg Q4H PRN IV SEVERE PAIN LEVEL 7-10 Last administered on 07/28/16 17:30; Admin Dose 2 MG; Start 07/28/16 at 07:30 Clindamycin HCl/ Dextrose (Cleocin 300 Mg/ D5W (Pmx)) 50 ml @ 100 mls/hr Q8 IVPB Last administered on 07/28/16 13:49; Admin Dose 100 MLS/HR; Start at 14:00 Celecoxib (Celebrex) 100 mg DAILY PO ; Start 07/28/16 at 16:00 EUSEBIA HAMILTON MD Jul 28, 2016 18:22
[2016-07-28] MEDS: ATORVASTATIN 40 MG TAB PO SCH (20:44)
[2016-07-29] MEDS: morphine 2 MG INJ IV PRN ×6 (03:20→23:56)
[2016-07-29] MEDS: PANTOPRAZOLE (EC) 40 MG TAB PO SCH (05:06)
[2016-07-29] MEDS: CLINDAMYCIN 300 MG/D5W (PMX) 50 ML IVPB SCH ×3 (05:46→20:44)
[2016-07-29] MEDS: ALBUTEROL/IPRATROPIUM (NEB) 3 ML AMP HHN SCH ×4 (08:00→20:00)
[2016-07-29 08:23] VITALS: BP 117/69; RESP 18
[2016-07-29] MEDS: ISOSORBIDE MONONITRATE(SR)30 MG TAB PO SCH (08:37)
[2016-07-29] MEDS: SALMETEROL/FLUTICASONE 500/50 INHA INH SCH ×2 (08:37→20:44)
[2016-07-29] MEDS: ASPIRIN (EC) 81 MG TAB PO SCH (08:37)
[2016-07-29] MEDS: CLOPIDOGREL 75 MG TAB PO SCH (08:37)
[2016-07-29] MEDS: ENOXAPARIN 40 MG/0.4 ML SYG SC SCH (08:38)
[2016-07-29] MEDS: CELECOXIB 100 MG CAP PO SCH (09:00)
--- NOTE | 2016-07-29 15:39 | PN ---
Date/Time of Note Date/Time of Note DATE: 07/29/16 TIME: 15:37 Assessment/Plan VTE Prophylaxis VTE Prophylaxis Intervention: LMWH Lines/Catheters IV [facility] Type (from [facility]): Saline Lock Urinary Cath still in place: No Assessment/Plan Assessment/Plan 1. Bilateral lower extremity cellulitis, on clindamycin 2. Chest pain with local tenderness, musculoskeletal, try celebrex 3. CAD, s/p PCI/stent, follow up with cardiology 4. Dyslipidemia. Continue statin. 5. Essential hypertension, well-controlled. 6. History of chronic obstructive pulmonary disease with remote history of nicotine dependency in remission. Continue Combivent, Advair breathing treatment p.r.n. 7. Deep venous thrombosis prophylaxis, on Lovenox. 8. Gastrointestinal prophylaxis, on proton pump inhibitor Subjective 24 Hr Interval Summary Free Text/Dictation still chest pain and leg pain Exam/Review of Systems Vital Signs Vitals Vital Signs Date Time Temp Pulse Resp B/P Pulse Ox O2 Delivery O2 Flow Rate FiO2 07/29/16 13:30 76 16 95 21 07/29/16 08:23 98.1 117/69 07/28/16 17:38 Room Air 07/27/16 16:36 2.0 Intake and Output 07/28/16 07/28/16 07/29/16 15:00 23:00 07:00 Intake Total 210 ml 550 ml Balance 210 ml 550 ml Exam Constitutional: alert, oriented, well developed Psych: nl mood/affect, no complaints Head: atraumatic, normocephalic Eyes: EOMI, nl conjunctiva, nl lids ENMT: nl external ears & nose, nl lips & teeth, nl nasal mucosa & septum Neck: non-tender, supple Respiratory: clear to auscultation, normal air movement, No congested cough, No crackles/rales, No diminished breath sounds, No intercostal retraction, No labored breathing, No respirations, No tactile fremitus, No wheezing Cardiovascular: nl pulses, regular rate and rhythm, No S3, No S4, No bruits, No diastolic murmur, No edema, No gallop, No irregular rhythm, No jugular venous distention (JVD), No murmurs/extra sounds, No rub, No systolic murmur Gastrointestinal: nl liver, spleen, non-tender, soft, No ascites, No bowel sounds, No distended, No firm, No hepatomegaly, No mass , No rebound or guarding, No splenomegaly, No surgical scars, No tender Musculoskeletal: nl extremities to inspection Extremities: other (redness, swelling and warmth on bother lower extremity=ies) Neurological: GARMENT LINER II-XII intact, nl mental status, nl speech, nl strength Skin: nl turgor, rash or lesions Lymph: nl lymph nodes Results Result Diagram: 07/28/1692407/28/16924 Medications Medications Current Medications Ondansetron HCl (Zofran Tab) 4 mg Q6H PRN PO NAUSEA AND/OR VOMITING; Start at 10:30 Acetaminophen (Tylenol Tab) 650 mg Q6H PRN PO PAIN LEVEL 1-3 OR FEVER; Start at 10:30 Docusate Sodium (Colace) 100 mg Q12H PRN PO CONSTIPATION; Start 07/27/16 at 10: 30 Pantoprazole (Protonix Tab) 40 mg DAILY@06 PO ; Start 07/28/16 at 06:00 Enoxaparin Sodium (Lovenox) 40 mg DAILY SC Last administered on 07/29/16 08:38 ; Admin Dose 40 MG; Start 07/28/16 at 09:00 Albuterol (Ventolin Hfa) 2 puff Q6H PRN INH WHEEZING AND SOB; Start 07/27/16 at 10:30 Aspirin (Halfprin) 81 mg DAILY PO Last administered on 07/29/16 08:37; Admin Dose 81 MG; Start 07/28/16 at 09:00 Clopidogrel Bisulfate (plaVIX) 75 mg DAILY PO Last administered on 07/29/16 08 :37; Admin Dose 75 MG; Start 07/28/16 at 09:00 Salmeterol Xinafoate/ Fluticasone (Advair 500/50 Diskus) 1 inh BID INH Last administered on 07/29/16 08:37; Admin Dose 1 INH; Start 07/27/16 at 21:00 Carvedilol (Coreg) 6.25 mg BID PO Last administered on 07/29/16 08:37; Admin Dose 6.25 MG; Start 07/27/16 at 21:00 Isosorbide Mononitrate (Imdur) 30 mg DAILY PO Last administered on 07/29/16 08 :37; Admin Dose 30 MG; Start 07/28/16 at 09:00 Morphine Sulfate 2 mg 2 mg Q4H PRN IV SEVERE PAIN LEVEL 7-10 Last administered on 07/29/16 11:29; Admin Dose 2 MG; Start 07/28/16 at 07:30 Clindamycin HCl/ Dextrose (Cleocin 300 Mg/ D5W (Pmx)) 50 ml @ 100 mls/hr Q8 IVPB Last administered on 07/29/16 05:46; Admin Dose 100 MLS/HR; Start at 14:00 Celecoxib (Celebrex) 100 mg DAILY PO ; Start 07/28/16 at 16:00 Atorvastatin Calcium (Lipitor) 40 mg QHS PO Last administered on 07/28/16 20: 44; Admin Dose 40 MG; Start 07/28/16 at 21:00 VENTURA DARDEN MD Jul 29, 2016 15:39
--- NOTE | 2016-07-29 15:56 | CONS ---
Date/Time of Note Date/Time of Note DATE: 07/29/16 TIME: 15:54 Assessment/Plan Assessment/Plan Chief Complaint/Hosp Course Assessment: Chest pain - ruled out for myocardial infarction, possibly musculoskeletal Coronary artery disease - status post coronary stent x 2 (March 2016, [facility]) Hypertension Dyslipidemia Chronic obstructive pulmonary disease Bilateral lower extremity cellulitis Recommendations: -echocardiogram showed LVEF 55-60%, mild diastolic dysfunction -continue carvedilol 6.25mg BID, Imdur 30mg daily -continue aspirin 81mg and clopidogrel 75mg daily -increase atorvastatin to 40mg daily, goal LDL<70 -consider cardiac stress testing, but patient reports inability to walk on treadmill and prior adverse reaction to pharmacological stress (details unknown ) - will defer to outpatient industrial gas servicer supervisor who patient reports he has been seeing for 15 years -antibiotics per primary team Problems: Consultation Date/Type/Reason Admit Date/Time Jul 27, 2016 at 17:34 Type of Consultation: Cardiology 24 HR Interval Summary Free Text/Dictation Continues to have chest pain with tenderness to palpitation. Detailed Summary Additional Comments 14 point review of systems without changes. Exam/Review of Systems Vital Signs Vitals Vital Signs Date Time Temp Pulse Resp B/P Pulse Ox O2 Delivery O2 Flow Rate FiO2 07/29/16 13:30 76 16 95 21 07/29/16 08:23 98.1 117/69 07/28/16 17:38 Room Air 07/27/16 16:36 2.0 Intake and Output 07/28/16 07/28/16 07/29/16 15:00 23:00 07:00 Intake Total 210 ml 550 ml Balance 210 ml 550 ml Exam Constitutional: alert, well developed Psych: nl mood/affect, no complaints Head: atraumatic, normocephalic Eyes: nl conjunctiva, nl lids ENMT: nl external ears & nose, nl nasal mucosa & septum Neck: non-tender, supple, No jvd Respiratory: wheezing, No crackles/rales Cardiovascular: regular rate and rhythm Gastrointestinal: non-tender, soft Extremities: No clubbing, No cyanosis, No edema Skin: other (bilateral lower extremity erythema) Results Result Diagram: 07/28/1692407/28/16924 Medications Medications Current Medications Ondansetron HCl (Zofran Tab) 4 mg Q6H PRN PO NAUSEA AND/OR VOMITING; Start at 10:30 Acetaminophen (Tylenol Tab) 650 mg Q6H PRN PO PAIN LEVEL 1-3 OR FEVER; Start at 10:30 Docusate Sodium (Colace) 100 mg Q12H PRN PO CONSTIPATION; Start 07/27/16 at 10: 30 Pantoprazole (Protonix Tab) 40 mg DAILY@06 PO ; Start 07/28/16 at 06:00 Enoxaparin Sodium (Lovenox) 40 mg DAILY SC Last administered on 07/29/16 08:38 ; Admin Dose 40 MG; Start 07/28/16 at 09:00 Albuterol (Ventolin Hfa) 2 puff Q6H PRN INH WHEEZING AND SOB; Start 07/27/16 at 10:30 Aspirin (Halfprin) 81 mg DAILY PO Last administered on 07/29/16 08:37; Admin Dose 81 MG; Start 07/28/16 at 09:00 Clopidogrel Bisulfate (plaVIX) 75 mg DAILY PO Last administered on 07/29/16 08 :37; Admin Dose 75 MG; Start 07/28/16 at 09:00 Salmeterol Xinafoate/ Fluticasone (Advair 500/50 Diskus) 1 inh BID INH Last administered on 07/29/16 08:37; Admin Dose 1 INH; Start 07/27/16 at 21:00 Carvedilol (Coreg) 6.25 mg BID PO Last administered on 07/29/16 08:37; Admin Dose 6.25 MG; Start 07/27/16 at 21:00 Isosorbide Mononitrate (Imdur) 30 mg DAILY PO Last administered on 07/29/16 08 :37; Admin Dose 30 MG; Start 07/28/16 at 09:00 Morphine Sulfate 2 mg 2 mg Q4H PRN IV SEVERE PAIN LEVEL 7-10 Last administered on 07/29/16 15:46; Admin Dose 2 MG; Start 07/28/16 at 07:30 Clindamycin HCl/ Dextrose (Cleocin 300 Mg/ D5W (Pmx)) 50 ml @ 100 mls/hr Q8 IVPB Last administered on 07/29/16 15:45; Admin Dose 100 MLS/HR; Start at 14:00 Celecoxib (Celebrex) 100 mg DAILY PO ; Start 07/28/16 at 16:00 Atorvastatin Calcium (Lipitor) 40 mg QHS PO Last administered on 07/28/16t 20: 44; Admin Dose 40 MG; Start 07/28/16 at 21:00 EUSEBIA HAMILTON MD Jul 29, 2016 15:56
[2016-07-29 20:00] VITALS: BP 109/58; RESP 19
[2016-07-29] MEDS: ATORVASTATIN 40 MG TAB PO SCH (20:43)
[2016-07-30] MEDS: ALBUTEROL/IPRATROPIUM (NEB) 3 ML AMP HHN SCH ×3 (02:00→13:10)
[2016-07-30] MEDS: morphine 2 MG INJ IV PRN ×4 (04:03→15:19)
[2016-07-30] MEDS: CLINDAMYCIN 300 MG/D5W (PMX) 50 ML IVPB SCH ×2 (06:14→15:01)
[2016-07-30] MEDS: PANTOPRAZOLE (EC) 40 MG TAB PO SCH (06:15)
[2016-07-30 08:18] VITALS: BP 118/68; RESP 19
[2016-07-30] MEDS: SALMETEROL/FLUTICASONE 500/50 INHA INH SCH (08:32)
[2016-07-30] MEDS: ASPIRIN (EC) 81 MG TAB PO SCH (08:33)
[2016-07-30] MEDS: CLOPIDOGREL 75 MG TAB PO SCH (08:33)
[2016-07-30] MEDS: ISOSORBIDE MONONITRATE(SR)30 MG TAB PO SCH (08:33)
[2016-07-30] MEDS: CELECOXIB 100 MG CAP PO SCH (08:37)
[2016-07-30] MEDS: ENOXAPARIN 40 MG/0.4 ML SYG SC SCH (08:38)
[2016-07-30] MEDS ORDERED: CLIN300C2 PO (15:12)
--- NOTE | 2016-07-30 15:21 | DS ---
Date/Time of Note Date/Time of Note DATE: 07/30/16 TIME: 15:13 Discharge Summary Admission/Discharge Info Admit Date/Time Jul 27, 2016 at 17:34 Discharge Date/Time Final Diagnosis 1. Chest pain with local tenderness, musculoskeletal, improved, follow up with PCP 2. Bilateral lower extremity cellulitis, improving, on clindamycin 3. CAD, s/p PCI/stent, follow up with cardiology 4. Dyslipidemia. Continue statin. 5. Essential hypertension, well-controlled. 6. History of chronic obstructive pulmonary disease with remote history of nicotine dependency in remission. Continue Combivent, Advair breathing treatment p.r.n. Patient Condition: Stable Hx of Present Illness his is a 61-year-old gentleman with past medical history of coronary artery disease, myocardial infarction, status post PCI, COPD, nicotine abuse in remission, dyslipidemia, GERD, who presents to [facility] secondary to having left-sided chest pain ____ without any diaphoresis or shortness of breath. The pain started yesterday noon, has been continuous, is not alleviated or aggravated with any medication or movement. On arrival to emergency room, the EKG showed normal sinus rhythm with regular rate and rhythm , normal interval, no evidence of ischemia or arrhythmia. Troponin was found to be negative. The patient was treated with nitroglycerin and at this time, the patient continues to complain of having minor chest discomfort without any shortness of breath. Denies any fever, chills, weight gain, weight loss, anorexia. No lower extremity edema. No diabetes mellitus, diaphoresis, headache, dysuria, hematuria, urgency, incontinence. No neck pain, no restricted range of motion in upper and lower extremities or any other discomfort. Hospital Course Chest pain is atypical, likely musculoskeletal. Considering patient's history of CAD, stress test is recommended but patient cannot do treadmil and he had reaction to pharmacological stress in the passed. Patient will follow up with his banana grader environmental assistant to follow up for this. Patient has cellulitis on both lower extremities, that is significantly improved with clindamycin. He will continue on clindamycin for 6 days and follow up with PCP. Home Meds Active Scripts Clindamycin Hcl* (Cleocin*) 300 Mg Cap, 300 MG PO TID for 6 Days, CAP Prov:VENTURA DARDEN MD 07/30/16 Reported Medications Pantoprazole* (Protonix*) 40 Mg Tablet.dr, 40 MG PO DAILY, TAB 07/27/16 Aspirin (Low Dose Aspirin) 81 Mg Tablet.dr, 81 MG PO DAILY, #30 TAB 07/27/16 Atorvastatin Calcium* (Atorvastatin Calcium*) 20 Mg Tablet, 20 MG PO QHS, #30 TAB 07/27/16 Clopidogrel Bisulfate (Clopidogrel) 75 Mg Tablet, 75 MG PO DAILY, #30 TAB 07/27/16 Propranolol Hcl* (Propranolol Hcl*) Unknown Strength Tablet, PO DAILY, TAB PT SAYS HE TAKE MED HES NOT SURE HOW OFTEN HE TAKES OR THE DOSAGE PHARM HAS NO RECORD OF IT 07/27/16 Albuterol Sulfate* (Proair HFA*) 8.5 Gm Hfa.aer.ad, 2 PUFF INH Q6H Y for WHEEZING AND SOB, #1 INHALER 07/27/16 Albuterol/Ipratropium* (Combivent Respimat*) 20-100 Mcg/Inh - 4 Gm Aer.w.adap, 1 PUFF INHALATION QID, #1 INHALER 07/27/16 Salmeterol Xinaf-Fluticasone* (Advair*) 500/50 Diskus Inhaler, 1 INH INHALATION BID, #1 INHALER 07/27/16 Follow-up Plan Cardiology one week PCP one week VENTURA DARDEN MD Jul 30, 2016 15:21
== END 2016-07-30 16:38 | disposition home or self-care (01) | DRG 313 ==
LOC: E/R 08:09 → MS4 17:34 → PP2 07-28 17:12
PROVIDERS: ADMIT Family Medicine; ATTEND Family Medicine
DX: R07.89 Other chest pain (principal); L03.115 Cellulitis of right lower limb; L03.116 Cellulitis of left lower limb; I10 Essential (primary) hypertension; I25.2 Old myocardial infarction; I25.10 Atherosclerotic heart disease of native coronary artery without angina pectoris; D64.9 Anemia, unspecified; E78.5 Hyperlipidemia, unspecified; J44.9 Chronic obstructive pulmonary disease, unspecified; Z95.5 Presence of coronary angioplasty implant and graft; Z79.82 Long term (current) use of aspirin; Z87.891 Personal history of nicotine dependence
CPT/HCPCS: 36415; 71010; 80048; 80061; 82550; 82553; 83036; 83735; 84443; 84484; 85025; 85610; 85730; 93005; 93306; 94640; 94664; 96374; 96375; 96376; J1650; J2270; J2405

== ENCOUNTER 2016-08-14 21:36 | Emergency (ER) | payer OTHER ==
[~2016-08-14] VITALS: Ht 170.2 cm; Wt 76.5 kg
[~2016-08-14 21:36] MED LIST: ADV50050 INHALATION; ALBU8.5H3 INH; ASPI-664 PO; ATOR20TA38 PO; CLIN300C2 PO; CLOP75TA27 PO; IPRA4AER INHALATION; PANT40TA3 PO; PROP10TA6 PO
[2016-08-14 21:58] VITALS: Ht 170.2 cm; Wt 76.5 kg
[2016-08-14] MEDS ORDERED: ONDANSETRON (ODT) 4 MG TAB ODT STA (22:13)
[2016-08-14] MEDS ORDERED: HYDR-902 PO (23:03)
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
[2016-08-14 23:10] VITALS: BP 148/72; PULSE 85; RESP 16; TEMP 98.1
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
== END 2016-08-14 23:35 | disposition home or self-care (01) ==
LOC: E/R 21:36
DX: S09.90XA Unspecified injury of head, initial encounter (principal); R40.2142 Coma scale, eyes open, spontaneous, at arrival to emergency department; R40.2252 Coma scale, best verbal response, oriented, at arrival to emergency department; R40.2362 Coma scale, best motor response, obeys commands, at arrival to emergency department; R51 Headache; Y04.2XXA Assault by strike against or bumped into by another person, initial encounter; Z79.82 Long term (current) use of aspirin; Z95.5 Presence of coronary angioplasty implant and graft
CPT/HCPCS: 70450; 72125; Z7502; Z7610

== ENCOUNTER 2016-09-10 01:45 | Inpatient (IN) | payer OTHER ==
[~2016-09-10] VITALS: Ht 354.3 cm; Wt 76.5 kg
[2016-09-10] VITALS (10 sets, daily range): BP systolic 94–117; BP diastolic 57–74; PULSE 52–77; RESP 18–20; Ht 354.3 cm; Wt 76.5 kg
[~2016-09-10 01:45] MED LIST changes: -CLIN300C2 PO; +HYDR-902 PO
[2016-09-10 05:14] LABS: ADD SCAN DIFF NO
[2016-09-10 05:18] LABS: BASOPHILS % 0.6 % (0.0-2.0); EOSINOPHILS # 0.1 10^3/ul (0.0-0.5); EOSINOPHILS % 1.9 % (0.0-7.0); HEMATOCRIT 37.7 % (42.0-52.0); HEMOGLOBIN 12.4 g/dl (14.0-18.0); LYMPHOCYTES # 2.5 10^3/ul (0.8-2.9); LYMPHOCYTES % 38.4 % (15.0-51.0); MEAN CORPUSCULAR HEMOGLOBIN 31.5 pg (29.0-33.0); MEAN CORPUSCULAR HGB CONC 32.9 g/dl (32.0-37.0); MEAN CORPUSCULAR VOLUME 95.7 fl (82.0-101.0); MEAN PLATELET VOLUME 10.3 fl (7.4-10.4); MONOCYTE # 0.9 10^3/ul (0.3-0.9); MONOCYTES % 13.2 % (0.0-11.0); NEUTROPHIL # 2.9 10^3/ul (1.6-7.5); NEUTROPHILS % 45.4 % (39.0-77.0); PLATELET COUNT 289 10^3/UL (140-415); RED BLOOD COUNT 3.94 10^6/ul (4.70-6.10); RED CELL DISTRIBUTION WIDTH 14.4 % (11.5-14.5); WHITE BLOOD COUNT 6.4 10^3/ul (4.8-10.8)
--- NOTE | 2016-09-10 05:21 | RADRPT ---
PROCEDURE: Chest. CLINICAL INDICATION: Chest pain. TECHNIQUE: Single frontal view of the chest was obtained. COMPARISON: 07/27/2016. FINDINGS: The cardiac silhouette is magnified. The aortic arch is unremarkable. There are calcified granulom as within bilateral upper lobes. There is no focal consolidation, vascular congestion or pleural ef fusion. There is no pneumothorax. IMPRESSION: No evidence for active cardiopulmonary disease. Calcified granulomas. .Hal Storm MD, MD Date Time Electronically viewed and signed by .Hal Storm MD, on 09/10/2016 05:21 .T/
[2016-09-10] MEDS ORDERED: ASPIRIN 325 MG TAB PO ONE (05:30)
[2016-09-10] MEDS ORDERED: NITROGLYCERIN 2% 1 GM OINT PKT TD ONE (05:30)
[2016-09-10 05:32] LABS: CHLORIDE 102 mmol/L (97-110); INR 0.87; PROTIME 11.8 Sec (12.2-14.2); PT RATIO 0.9
[2016-09-10 05:33] LABS: PARTIAL THROMBOPLASTIN TIME 26.5 Sec (25.0-35.0); SODIUM 145 mmol/L (135-144)
[2016-09-10 05:35] LABS: CREATININE 0.83 mg/dl (0.61-1.24)
[2016-09-10 05:36] LABS: ANION GAP 16 (8-16); BLOOD UREA NITROGEN 19 mg/dl (7-20); CALCIUM 9.5 mg/dl (8.4-10.2); CARBON DIOXIDE 31 mmol/L (21-31); GLUCOSE 105 mg/dl (70-220)
[2016-09-10 05:48] LABS: TROPONIN-I < 0.012 ng/ml (0.00-0.12)
[2016-09-10] MEDS ORDERED: NACL 0.9% 3 ML SYG IV SCH ×2 (06:00→09:30)
[2016-09-10] MEDS ORDERED: ONDANSETRON 4 MG TAB PO PRN (06:00)
[2016-09-10] MEDS ORDERED: NITROGLYCERIN (SL) 0.4 MG TAB SL PRN (06:00)
[2016-09-10] MEDS ORDERED: ONDANSETRON 4 MG INJ IV PRN (06:00)
--- NOTE | 2016-09-10 06:12 | ERA ---
ER Documentation Chief Complaint Date/Time DATE: 09/10/16 Chief Complaint chest pain radaiting to left elbow w/ cardiac stent palced on 03/2016 HPI The patient is a 61-year-old male, presenting to the ER because of left-sided chest pain, radiating down to her left arm for the last few hours. He had similar symptoms previously when he had heart attack. He denies chest pain with exertion or vomiting or diaphoresis. He denies fever, chills, neck pain, dyspnea, abdominal pain, vomiting, dysuria, diarrhea. Used to smoke until recently ROS All systems reviewed and are negative except as per history of present illness. Medications Home Meds Reported Medications Hydrocodone/Acetaminophen ([place] 10-325 Tablet) 1 Each Tablet, 1 EACH PO NEEDED, TAB 08/14/16 Pantoprazole* (Protonix*) 40 Mg Tablet.dr, 40 MG PO DAILY, TAB 07/27/16 Aspirin (Low Dose Aspirin) 81 Mg Tablet.dr, 81 MG PO DAILY, #30 TAB 07/27/16 Atorvastatin Calcium* (Atorvastatin Calcium*) 20 Mg Tablet, 20 MG PO QHS, #30 TAB 07/27/16 Clopidogrel Bisulfate (Clopidogrel) 75 Mg Tablet, 75 MG PO DAILY, #30 TAB 07/27/16 Propranolol Hcl* (Propranolol Hcl*) Unknown Strength Tablet, PO DAILY, TAB PT SAYS HE TAKE MED HES NOT SURE HOW OFTEN HE TAKES OR THE DOSAGE PHARM HAS NO RECORD OF IT 07/27/16 Albuterol Sulfate* (Proair HFA*) 8.5 Gm Hfa.aer.ad, 2 PUFF INH Q6H Y for WHEEZING AND SOB, #1 INHALER 07/27/16 Albuterol/Ipratropium* (Combivent Respimat*) 20-100 Mcg/Inh - 4 Gm Aer.w.adap, 1 PUFF INHALATION QID, #1 INHALER 07/27/16 Salmeterol Xinaf-Fluticasone* (Advair*) 500/50 Diskus Inhaler, 1 INH INHALATION BID, #1 INHALER 07/27/16 Allergies Allergies: Coded Allergies: Penicillins (Verified Allergy, Severe, 08/14/16) Iodine and Iodide Containing Produc (Verified Allergy, Unknown, 08/14/16) PMhx/Soc History of Surgery: Yes (X 2 CARDO STENT PLACED IN MAR 2016 ) Anesthesia Reaction: No Hx Neurological Disorder: No Hx Respiratory Disorders: No Hx Cardiac Disorders: Yes (M.I. 2016) Hx Psychiatric Problems: No Hx Miscellaneous Medical Probl: No Hx Alcohol Use: Yes (sober for 35 years per patient verbatim) Hx Substance Use: No Hx Tobacco Use: No (quit after stent placement) Smoking Status: Former smoker Physical Exam Vitals Vital Signs Date Time Temp Pulse Resp B/P Pulse Ox O2 Delivery O2 Flow Rate FiO2 09/10/16 06:01 71 19 134/71 97 Room Air 09/10/16 04:48 69 14 143/85 97 Room Air 09/10/16 01:48 98.3 77 20 127/86 97 Physical Exam Const: No acute distress. Head: Atraumatic. Eyes: Normal Conjunctiva. ENT: Normal External Ears, Nose and Mouth. Neck: Full range of motion. No meningismus. Resp: bilateral expiratory wheezes Cardio: Regular rate and rhythm, no murmurs. Abd: Soft, non distended, normal bowel sounds, non tender. Skin: No petechiae or rashes. Back: No midline or flank tenderness. Ext: No cyanosis, or edema. Neur: Awake and alert. No focal deficit Psych: Normal Mood and Affect. Result Diagram: 09/10/16 0503 09/10/16 0503 Results 24 hrs Laboratory Tests Test 09/10/16 05:03 Activated Partial Thromboplast Time 26.5Sec Anion Gap 16 Basophils # 0.010^3/ul Basophils % 0.6% Blood Urea Nitrogen 19mg/dl Calcium Level 9.5mg/dl Carbon Dioxide Level 31mmol/L Chloride Level 102mmol/L Creatinine 0.83mg/dl Eosinophils # 0.110^3/ul Eosinophils % 1.9% Glucose Level 105mg/dl Hematocrit 37.7% Hemoglobin 12.4g/dl INR International Normalized Ratio 0.87 Lymphocytes # 2.510^3/ul Lymphocytes % 38.4% Mean Corpuscular Hemoglobin 31.5pg Mean Corpuscular Hemoglobin Concent 32.9g/dl Mean Corpuscular Volume 95.7fl Mean Platelet Volume 10.3fl Monocytes # 0.910^3/ul Monocytes % 13.2% Neutrophils # 2.910^3/ul Neutrophils % 45.4% Nucleated Red Blood Cells # 0.010^3/ul Nucleated Red Blood Cells % 0.0/100WBC Platelet Count 13469^3/UL Potassium Level 4.0mmol/L Prothrombin Time 11.8Sec Prothrombin Time Ratio 0.9 Red Blood Count 3.9410^6/ul Red Cell Distribution Width 14.4% Sodium Level 145mmol/L Troponin I < 0.012ng/ml White Blood Count 6.410^3/ul Current Medications Medications (Trade) Dose Ordered Sig/Amanda Route PRN Reason Start Time Stop Time Status Last Admin Dose Admin Aspirin (Aspirin) 325 mg ONCE ONCE PO 09/10/16 05:30 09/10/16 05:48 DC 09/10/16 05:58 Nitroglycerin (Nitroglycerin 2% Oint) 1 inch ONCE ONCE TD 09/10/16 05:30 09/10/16 05:48 DC 09/10/16 05:58 IV Flush (NS 3 ml) 3 ml PER PROTOCOL IV 09/10/16 06:00 Ondansetron HCl (Zofran Tab) 4 mg Q6H PRN PO NAUSEA AND/OR VOMITING 09/10/16 06:00 Ondansetron HCl (Zofran Inj) 4 mg Q6H PRN IV NAUSEA AND/OR VOMITING 09/10/16 06:00 Nitroglycerin (Nitroglycerin (Sl Tab) 0.4 Mg) 1 tab Q5M PRN SL CHEST PAIN 09/10/16 06:00 Enoxaparin Sodium (Lovenox) 30 mg DAILY SC 09/10/16 09:00 Procedures/[place] [address] Radiology Main Line: [phone] DIAGNOSTIC IMAGING REPORT Patient: DREW VELASQUEZ : 1955 Age: 61 Sex: M MR #: [id number] DOS: 09/10/16 0448 Ordering MD: SUELLEN ZAMORA MD Location: E/R Room/Bed: PROCEDURE: Chest. CLINICAL INDICATION: Chest pain. TECHNIQUE: Single frontal view of the chest was obtained. COMPARISON: 07/27/2016. FINDINGS: The cardiac silhouette is magnified. The aortic arch is unremarkable. There are calcified granulomas within bilateral upper lobes. There is no focal consolidation, vascular congestion or pleural effusion. There is no pneumothorax. IMPRESSION: No evidence for active cardiopulmonary disease. Calcified granulomas. .Hal Storm MD, Date Time Electronically viewed and signed by .Hal Storm MD, on 09/10/2016 05:21 .T/ CC: SUELLEN ZAMORA MD EKG: Read by emergency physician Rate/Rhythm: Normal Sinus Rhythm 72 beats/min QRS, ST, T-waves: No ST elevation, no T inversion Impression: Normal EKG MEDICAL MAKING DECISION: The patient is a 61-year-old male with multiple cardiac risk factors, presenting with acute chest pain that is concerning for ACS. He was treated with aspirin 325 mg p.o. and 1 inch of nitroglycerin, Xopenex 1.25 mg and Atrovent 0.5 mg nebulizer for wheezing with good response. The differential diagnoses considered include but are not limited to acute coronary syndrome, acute myocardial infarction, pericarditis, pulmonary embolism , aortic dissection, pneumonia, pleural effusion, pneumothorax, GERD, chest wall pain. Departure Diagnosis: Primary Impression: Chest pain Additional Impression: Anemia Condition: Stable Comments I discussed the findings with the patient. I discussed the patient with the hospitalist Dr Sosa who was made aware of the lab, the treatment, the patient condition. The patient is admitted to telemetry at 5:40 AM SUELLEN ZAMORA MD Sep 10, 2016 06:12
[2016-09-10] MEDS ORDERED: IPRATROPIUM (NEB) 0.5 MG/2.5 ML AMP HHN ONE (06:30)
[2016-09-10] MEDS ORDERED: LEVALBUTEROL (NEB) 1.25 MG/0.5 ML AMP HHN ONE (06:30)
[2016-09-10] MEDS ORDERED: ENOXAPARIN 30 MG/0.3 ML SYG SC SCH (09:00)
[2016-09-10] MEDS ORDERED: LORAZEPAM 2 MG INJ IV PRN (09:30)
[2016-09-10] MEDS ORDERED: BISACODYL (EC) 5 MG TAB PO PRN (09:30)
[2016-09-10] MEDS ORDERED: MAGNESIUM HYDROXIDE 30ML CUP PO PRN (09:30)
[2016-09-10] MEDS ORDERED: ACETAMINOPHEN 325 MG TAB PO PRN (09:30)
[2016-09-10] MEDS ORDERED: HYDROCODONE/APAP (5/325) TAB PO PRN (09:30)
[2016-09-10] MEDS ORDERED: PANTOPRAZOLE (EC) 40 MG TAB PO SCH (09:30)
[2016-09-10] MEDS ORDERED: ALBUTEROL/IPRATROPIUM (NEB) 3 ML AMP HHN PRN (09:30)
[2016-09-10] MEDS ORDERED: CLOPIDOGREL 75 MG TAB PO SCH (09:30)
[2016-09-10] MEDS: morphine 2 MG INJ IV PRN ×4 (09:43→23:02)
[2016-09-10] MEDS: FAMOTIDINE 20 MG TAB PO SCH ×2 (09:44→20:57)
--- NOTE | 2016-09-10 09:47 | CONS ---
Date/Time of Note Date/Time of Note DATE: 09/10/16 TIME: 09:37 Assessment/Plan Assessment/Plan Chief Complaint/Hosp Course Chest pain: though the pt claims he had stents (unverified), there is strong suspicion for malingering/drug-seeking. He is refusing stress testing and on prior admission was asking for morphine around the clock. There has been no objective e/o ischemia and as such, there is no indication for a cardiac cath. His last EF was preserved 07/2016. He may be homeless but I cannot verify this. ?CAD s/p PCI: per pt report, unverified COPD: has active wheezing, ronchi but I do not think he has heart failure -COPD treatment per primary team -trend trops. If negative, I believe he can be discharged -continue ASA, plavix, statin -can consider adding imdur though doubt cardiac related chest pain Problems: Consultation Date/Type/Reason Admit Date/Time Sep 10, 2016 at 05:49 Date of Consultation: Sep 10, 2016 Type of Consultation: Cardiology Reason for Consultation Chest pain Referring Provider: ANNE GARCÍA PATHOLOGY SUPERVISOR Hx of Present Illness 61 yo M with a h/o CAD s/p PCI 03/2016 (per pt), COPD, who presented with chest pain. The pt is a poor historian but tells me that he had 2 stents 03/19 at [facility]. Since then he states he has not had any chest pain until yesterday. he describes the pain as pressure like. When asked if he remembers that he was admitted 07/2016 for similar complaints he got upset and stated "Betzaida been having chest pain since the stent. I wish they never did the stent". He also notes leg edema but no SOB. he quit smoking 03/19 but was a heavy smoker before. He currently complains of a headache and chest pain. He states the cannot do the treadmill stress and he gets severe headaches with the lexiscan and refuses. Of note when he was hospitalized 07/20 here at [facility], he was receiving morphine around the clock and he did not have objective e/o ischemia. per hPI Past Medical History [per HPI Social History Smoking Status: Current every day smoker Exam/Review of Systems Vital Signs Vitals Vital Signs Date Time Temp Pulse Resp B/P Pulse Ox O2 Delivery O2 Flow Rate FiO2 09/10/16 08:53 Nasal Cannula 2.0 3/10/17 08:06 68 09/10/16 07:15 18 117/74 97 09/10/16 07:00 98.0 Exam Constitutional: alert, oriented Psych: other (upset) Head: atraumatic, normocephalic Neck: No jvd (unable to examine as pt cannot flex his neck) Respiratory: wheezing, No clear to auscultation Cardiovascular: edema (1+), regular rate and rhythm, No systolic murmur Gastrointestinal: non-tender, soft Neurological: nl speech, No nl mental status Results EKG: sinus, no ST changes Result Diagram: 09/10/16 0503 09/10/16 0503 Results 24 hrs Laboratory Tests Test 09/10/16 05:03 Activated Partial Thromboplast Time 26.5 Anion Gap 16 Basophils # 0.0 Basophils % 0.6 Blood Urea Nitrogen 19 Calcium Level 9.5 Carbon Dioxide Level 31 Chloride Level 102 Creatinine 0.83 Eosinophils # 0.1 Eosinophils % 1.9 Glucose Level 105 Hematocrit 37.7 L Hemoglobin 12.4 L INR International Normalized Ratio 0.87 Lymphocytes # 2.5 Lymphocytes % 38.4 Mean Corpuscular Hemoglobin 31.5 Mean Corpuscular Hemoglobin Concent 32.9 Mean Corpuscular Volume 95.7 Mean Platelet Volume 10.3 Monocytes # 0.9 Monocytes % 13.2 H Neutrophils # 2.9 Neutrophils % 45.4 Nucleated Red Blood Cells # 0.0 Nucleated Red Blood Cells % 0.0 Platelet Count 289 Potassium Level 4.0 Prothrombin Time 11.8 L Prothrombin Time Ratio 0.9 Red Blood Count 3.94 L Red Cell Distribution Width 14.4 Sodium Level 145 H Troponin I < 0.012 White Blood Count 6.4 Medications Medications Current Medications Ondansetron HCl (Zofran Tab) 4 mg Q6H PRN PO NAUSEA AND/OR VOMITING; Start 04/19 at 06:00 Ondansetron HCl (Zofran Inj) 4 mg Q6H PRN IV NAUSEA AND/OR VOMITING; Start 04/19 at 06:00 Nitroglycerin (Nitroglycerin (Sl Tab) 0.4 Mg) 1 tab Q5M PRN SL CHEST PAIN; Start 09/10/16 at 06:00 Enoxaparin Sodium (Lovenox) 30 mg DAILY SC ; Start 09/10/16 at 09:00 Influenza Virus Vaccine (Fluzone) 0.5 ml ONCE ONCE IM* ; Start 09/13/16 at 09:00 ; Stop 09/13/16 at 09:01 Aspirin (Halfprin) 81 mg DAILY PO ; Start 09/11/16 at 09:00 Atorvastatin Calcium (Lipitor) 20 mg QHS PO ; Start 09/10/16 at 21:00 Pantoprazole (Protonix Tab) 40 mg DAILY@06 PO ; Start 09/10/16 at 09:30 Salmeterol Xinafoate/ Fluticasone (Advair 500/50 Diskus) 1 inh BID INH ; Start 09/10/16 at 10:00 Clopidogrel Bisulfate (plaVIX) 75 mg DAILY PO ; Start 09/10/16 at 09:30 Lorazepam (Ativan) 0.5 mg Q6H PRN IV ANXIETY; Start 09/10/16 at 09:30 Acetaminophen (Tylenol Tab) 650 mg Q6H PRN PO PAIN LEVEL 1-3 OR FEVER; Start at 09:30 Acetaminophen/ Hydrocodone Bitart ([place] (5/325)) 1 tab Q6H PRN PO PAIN LEVEL 4 -6; Start 09/10/16 at 09:30 Morphine Sulfate (morphine) 2 mg Q4H PRN IV PAIN LEVEL 7-10; Start 09/10/16 at 09:30 Magnesium Hydroxide (Milk Of Mag) 30 ml DAILY PRN PO CONSTIPATION; Start at 09:30 Bisacodyl (Dulcolax) 5 mg DAILY PRN PO CONSTIPATION; Start 09/10/16 at 09:30 Famotidine (Pepcid) 20 mg Q12 PO ; Start 09/10/16 at 10:00 TOM KHAN Sep 10, 2016 09:47
[2016-09-10 10:59] LABS: CREATINE KINASE 58 IU/L (23-200)
[2016-09-10 11:17] LABS: CK-MB 0.78 ng/ml (0.0-2.4); TROPONIN-I < 0.012 ng/ml (0.00-0.12)
[2016-09-10 12:21] LABS: CHOL/HDL RATIO 3.6 RATIO
[2016-09-10] MEDS: SALMETEROL/FLUTICASONE 500/50 INHA INH SCH ×2 (12:28→20:57)
[2016-09-10 12:51] LABS: THYROID STIMULATING HORMONE 1.84 MIU/L (0.465-4.680)
--- NOTE | 2016-09-10 12:52 | HP ---
DATE OF ADMISSION: 09/10/2016 TIME OF EVALUATION: 9 a.m. REASON FOR ADMISSION: Chest pain. CONSULTATIONS: Manny Nieves MD, Cardiology HISTORY OF PRESENT ILLNESS: This is a 61-year-old male with past medical history of essential hypertension, CAD status post coronary artery stenting in the past, and COPD who came into the emergency room with chief complaint of chest pain. The patient verbalized the chest pain as substernal with radiation to the left arm. The patient was also complaining of dyspnea. The patient denied any vomiting or diaphoresis. The patient was complaining of dyspnea. The patient denied any dizziness. The patient was complaining of a headache. In the emergency room, the patient's initial troponins were negative. The patient's vital signs in the emergency room were within normal limits. The patient underwent a chest x-ray that showed no evidence of active cardiopulmonary disease, but calcified granulomas. The patient was treated with inhaled bronchodilators as well as aspirin and transdermal nitroglycerin patch in the emergency room. PAST MEDICAL HISTORY: Essential hypertension, CAD, COPD. PAST SURGICAL HISTORY: Left heart catheterization. HOME MEDICATIONS: 1. ProAir HFA 8.5 gram inhaled q.6h. p.r.n. dyspnea. 2. Plavix 75 mg p.o. daily. 3. Atorvastatin 20 mg p.o. at bedtime. 4. Propranolol of unknown strength p.o. daily. 5. Aspirin 81 mg p.o. daily. 6. Advair Diskus 500/50 one inhalation b.i.d. 7. Protonix 40 mg p.o. daily. ALLERGIES: 1. IODINE 2. PENICILLIN. SOCIAL HISTORY: The patient has a remote history of smoking. The patient quit smoking in March 2016. Denies any alcohol or illicit drug use. REVIEW OF SYSTEMS: A 12-point review of systems were done and was negative other than what is mentioned in the history of present illness. PHYSICAL EXAMINATION: VITAL SIGNS: Temperature 97.8, pulse rate 50, respiratory rate 96/57, oxygen saturation 97% on room air. GENERAL: This is an obese male patient lying in bed, looks disheveled, not in any apparent distress. HEENT: Head normocephalic and atraumatic. Eyes: Anicteric sclerae. Conjunctivae clear. ENT: Nasal septum is midline. Oral mucosa is dry. NECK: Supple. No JVD noticed. RESPIRATORY: Bilaterally diminished breath sounds with bilateral expiratory wheezing. Minimal use of accessory muscles of respiration. CARDIAC: Regular rate and rhythm. No murmurs heard. GASTROINTESTINAL: Abdomen soft, nontender and nondistended. Bowel sounds positive in all 4 quadrants. GENITOURINARY: Deferred. EXTREMITIES: No cyanosis, no clubbing. Bilateral lower extremity 1+ pitting edema. Peripheral pulses are palpable. NEUROLOGIC: The patient is awake, alert, and oriented. LABORATORY AND DIAGNOSTIC DATA: WBC 6.4, hemoglobin 12.4, hematocrit 37.7, platelet count 289. Sodium 144, potassium 4.0, chloride 102, carbon dioxide 30 , anion gap 16, BUN 19, creatinine 0.83, glucose 105, calcium 9.5. Troponin I less than 0.012. Chest x-ray: No evidence of acute cardiopulmonary disease. Calcified granulomas. IMPRESSION: This is a 61-year-old male with multiple comorbidities including past medical history of CAD who came to the emergency room with a chief complaint of chest pain, who will be admitted here for further treatment and evaluation. ASSESSMENT AND PLAN: 1. Chest pain. To rule out acute coronary syndrome. The patient has known history of coronary artery disease. The patient will be continued aspirin and Plavix. Serial troponins will be obtained. The patient recently had a 2-D echocardiogram done in July 2016. Hence, this will not be repeated. A cardiology consult will be obtained. 2. Chronic obstructive pulmonary disease with underlying exacerbation. The patient will be maintained on inhaled bronchodilators around the clock and on a p.r.n. basis. The patient will also be started on a tapering dose of IV steroids. 3. Essential hypertension. The patient will be continued on antihypertensives. 4. Dyslipidemia. The patient will be started on a statins. A fasting lipid panel will be obtained. Plan. The patient will be admitted to inpatient telemetry floor. The patient will be started on a low cholesterol diet. The patient will be started on DVT prophylaxis and gastrointestinal prophylaxis. The patient will remain a full code. Activities will be as tolerated. The rest of the patient's management will be based on clinical course, the results of diagnostic studies, and inputs from consultants. Based on the patient's clinical presentation, he most probably requires at least 1 midnight's stay for further management and evaluation of his clinical presentation. The case and management of this patient was fully discussed with Dr. Weinberg. Approximately 45 minutes was spent on the history and physical of this patient. ANNE WEINBERG MD, AM/MARILU Conf#: [id number] DID#: [id number] MTDD
[2016-09-10] MEDS: METHYLPREDNISOLONE 40 MG INJ IV SCH ×2 (13:57→22:19)
[2016-09-10] MEDS: ALBUTEROL/IPRATROPIUM (NEB) 3 ML AMP HHN SCH ×2 (14:00→19:46)
[2016-09-10 16:47] LABS: CREATINE KINASE 59 IU/L (23-200)
[2016-09-10 17:06] LABS: CK-MB 0.78 ng/ml (0.0-2.4); TROPONIN-I < 0.012 ng/ml (0.00-0.12)
[2016-09-10] MEDS ORDERED: ATORVASTATIN 20 MG TAB PO SCH (21:00)
[2016-09-11 00:13] VITALS: PULSE 89
[2016-09-11 00:26] VITALS: BP 108/59; RESP 17
[2016-09-11] MEDS: morphine 2 MG INJ IV PRN (03:00)
[2016-09-11 04:13] VITALS: PULSE 90
[2016-09-11 08:06] LABS: BARBITURATES Negative (NEGATIVE); BENZODIAZEPINES Negative (NEGATIVE); CANNABINOIDS Negative (NEGATIVE); COCAINE Negative (NEGATIVE); OPIATES Positive (NEGATIVE)
[2016-09-11] MEDS ORDERED: CLOPIDOGREL 75 MG TAB PO SCH (09:00)
[2016-09-11] MEDS ORDERED: ASPIRIN (EC) 81 MG TAB PO SCH (09:00)
--- NOTE | 2016-09-11 10:37 | DS ---
DATE OF ADMISSION: 09/10/2016 DATE OF DISCHARGE: 09/11/2016 (Left against medical advice). ADMITTING DIAGNOSES: 1. Chest pain. To rule out acute coronary syndrome. 2. Chronic obstructive pulmonary disease with underlying chronic obstructive pulmonary disease exacerbation. 3. Essential hypertension. 4. Dyslipidemia. 5. Noncompliance. 6. Nicotine use. CONSULT[facility]S: [facility] COURSE: This is a 61-year-old male with a past medical history of essential hypertension, CAD, status post coronary artery stenting in the past, and COPD, who came to the emergency room with the chief complaint of chest pain. The patient verbalized the chest pain as substernal, with radiation to the left arm. The patient was also complaining of a headache. In the emergency room the patient's initial troponins were negative. The patient's vital signs in the emergency room were within normal limits. Provided the patient's history of present illness and the comorbidities, a clinical decision was made to admit the patient to the inpatient setting and to have him further evaluated. The patient was admitted to the inpatient telemetry floor. Serial troponins were ordered. A 2-D echocardiogram was not ordered since the patient recently had a 2D echocardiogram done in July of 2016. A cardiology consult was obtained. The patient was also started on a tapering dose of steroids since the patient had evidence of chronic obstructive pulmonary disease exacerbation. The patient was maintained on inhaled bronchodilators around the clock and on a p.r.n. basis. The patient's cardiac medications, including aspirin and Plavix, were resumed since the patient has a history of CAD, status post stenting in the past. Cardiology saw and evaluated the patient and since the troponins are negative, it was advised that the patient may be discharged home from a cardiac standpoint. On 09/11/2016, the nursing staff noticed that the patient was wandering in the hallway and he was trying to light a cigarette. He was informed about the nonsmoking policy and the patient wants to leave the hospital against medical advice since he wants to smoke. The patient was informed about the consequences of leaving the hospital against medical advice, including the possibility of . Nevertheless, the patient wanted to leave the hospital against medical advice. No discharge planning was done and no discharge medications were given to this patient since the patient left the hospital against medical advice. PERTINENT LABORATORY AND DIAGNOSTIC DATA: 1. CBC, WBC 6.4, hemoglobin 12.4, hematocrit 37.7, platelet count 289. 2. BMP, sodium 145, potassium 4.0, chloride 102, carbon dioxide 31, anion gap 16, BUN 19, creatinine 0.8, glucose 105, calcium 9.5. 3. Fasting lipid panel: Triglycerides 95, total cholesterol 206, LDL 131, HDL 56. 4. Hemoglobin A1c 5.8. 5. Vitamin D level 20.5. 6. Urine drug toxicology, positive for opioids. 7. Chest x-ray. No evidence of acute cardiopulmonary disease. Calcified granulomas. At this time, I would like to thank Dr. Nieves for seeing the patient and providing clinical recommendations. The case and management of this patient was fully discussed with Dr. Weinberg. ANNE WEINBERG MD, AM/MARILU Conf#: [id number] DID#: [id number] MTDD
[2016-09-13] MEDS ORDERED: INFLUENZA VIRUS VACCINE 0.5 ML SYG IM* ONE (09:00)
[2016-09-16] MEDS ORDERED: SOD CHLORIDE 0.45% 1,000 ML IV SCH (17:49)
[2016-09-16] MEDS ORDERED: DOCUSATE SODIUM 100 MG CAP PO PRN (18:00)
[2016-09-16] MEDS ORDERED: ACETAMINOPHEN 325 MG TAB PO PRN (18:00)
[2016-09-16] MEDS ORDERED: NACL 0.9% 3 ML SYG IV SCH (18:00)
[2016-09-16] MEDS ORDERED: morphine 2 MG INJ IV PRN (18:00)
[2016-09-16] MEDS ORDERED: ZOLPIDEM 5 MG TAB PO PRN (18:00)
[2016-09-16] MEDS ORDERED: ONDANSETRON 4 MG INJ IV PRN (18:00)
[2016-09-16] MEDS ORDERED: NITROGLYCERIN (SL) 0.4 MG TAB SL PRN (18:00)
[2016-09-16] MEDS ORDERED: HYDROCODONE/APAP (5/325) TAB PO PRN (18:00)
[2016-09-16] MEDS ORDERED: ATORVASTATIN 40 MG TAB PO SCH (21:00)
[2016-09-16] MEDS ORDERED: SALMETEROL/FLUTICASONE 100/50 INHA INH SCH (21:00)
[2016-09-17] MEDS ORDERED: CLOPIDOGREL 75 MG TAB PO SCH (09:00)
[2016-09-18] MEDS ORDERED: ASPIRIN 81 MG TAB PO SCH (09:00)
== END 2016-09-11 05:23 | disposition left against medical advice (07) | DRG 313 ==
LOC: E/R 01:45 → TEL 05:49
PROVIDERS: ADMIT Family Medicine; ATTEND Family Medicine
DX: R07.9 Chest pain, unspecified (principal); I25.10 Atherosclerotic heart disease of native coronary artery without angina pectoris; J44.1 Chronic obstructive pulmonary disease with (acute) exacerbation; I10 Essential (primary) hypertension; Z76.5 Malingerer [conscious simulation]; Z72.0 Tobacco use
CPT/HCPCS: 36415; 71010; 80048; 80061; 80307; 82550; 82553; 82652; 83036; 84439; 84443; 84484; 85025; 85610; 85730; 93005; 94664; J1650; J2060; J2270; J2920

== ENCOUNTER 2016-09-16 10:18 | Inpatient (IN) | payer OTHER ==
[~2016-09-16] VITALS: Ht 170.2 cm; Wt 77.8 kg
[2016-09-16 15:52] LABS: ADD SCAN DIFF NO
[2016-09-16 15:55] LABS: BASOPHILS % 0.8 % (0.0-2.0); EOSINOPHILS # 0.1 10^3/ul (0.0-0.5); EOSINOPHILS % 1.4 % (0.0-7.0); HEMATOCRIT 39.1 % (42.0-52.0); HEMOGLOBIN 13.2 g/dl (14.0-18.0); LYMPHOCYTES # 1.8 10^3/ul (0.8-2.9); LYMPHOCYTES % 35.5 % (15.0-51.0); MEAN CORPUSCULAR HEMOGLOBIN 32.3 pg (29.0-33.0); MEAN CORPUSCULAR HGB CONC 33.8 g/dl (32.0-37.0); MEAN CORPUSCULAR VOLUME 95.6 fl (82.0-101.0); MEAN PLATELET VOLUME 10.6 fl (7.4-10.4); MONOCYTE # 0.6 10^3/ul (0.3-0.9); NEUTROPHIL # 2.5 10^3/ul (1.6-7.5); NEUTROPHILS % 50.1 % (39.0-77.0); PLATELET COUNT 323 10^3/UL (140-415); RED BLOOD COUNT 4.09 10^6/ul (4.70-6.10); RED CELL DISTRIBUTION WIDTH 13.7 % (11.5-14.5)
[2016-09-16 16:08] LABS: INR 0.91; PROTIME 12.3 Sec (12.2-14.2)
[2016-09-16 16:12] LABS: CHLORIDE 103 mmol/L (97-110); POTASSIUM 4.3 mmol/L (3.5-5.1); SODIUM 142 mmol/L (135-144)
[2016-09-16 16:15] LABS: ANION GAP 15 (8-16); BLOOD UREA NITROGEN 16 mg/dl (7-20); CARBON DIOXIDE 28 mmol/L (21-31)
[2016-09-16 16:16] LABS: CALCIUM 9.7 mg/dl (8.4-10.2); GLUCOSE 101 mg/dl (70-220)
[2016-09-16 16:22] LABS: PARTIAL THROMBOPLASTIN TIME 27.7 Sec (25.0-35.0)
[2016-09-16 16:31] LABS: TROPONIN-I < 0.012 ng/ml (0.00-0.12)
[2016-09-16] MEDS ORDERED: ATOR40TA68 PO (16:55)
[2016-09-16] MEDS ORDERED: HYDR-902 PO (16:58)
[2016-09-16] MEDS ORDERED: ADV10050 INHALATION (16:58)
[2016-09-16] MEDS ORDERED: ASPIRIN 325 MG TAB PO ONE (17:00)
[2016-09-16] MEDS ORDERED: IPRA4AER INHALATION (17:02)
[2016-09-16] MEDS ORDERED: ALBU18HF INHALATION (17:03)
[2016-09-16] MEDS ORDERED: morphine 4 MG/ML VIAL IV STA ×2 (17:29→17:38)
[2016-09-16] MEDS ORDERED: ONDANSETRON 4 MG INJ IV PRN (17:30)
[2016-09-16] MEDS ORDERED: ACETAMINOPHEN 325 MG TAB PO PRN (17:30)
--- NOTE | 2016-09-16 17:30 | RADRPT ---
PROCEDURE: XR Chest. CLINICAL INDICATION: Shortness of breath. TECHNIQUE: Single frontal view. COMPARISON: 09/10/2016. FINDINGS: There are benign calcified granulomas bilaterally in the upper lung zones. The lungs are otherwise clear. The heart size is normal. There is no pleural effusion. There is no pneumothorax. IMPRESSION: 1. Benign calcified granulomas bilaterally in the upper lung zones. 2. Otherwise normal chest x-ray. RPTAT: QQ .Truong Castellano MD, MD Date Time Electronically viewed and signed by .Truong Castellano MD, MD on 09/16/2016 17:30 .R/
--- NOTE | 2016-09-16 17:50 | ERA ---
ER Documentation Chief Complaint Date/Time DATE: 09/16/16 TIME: 17:46 Chief Complaint CHEST PAIN SUBSTERNAL SUDDEN ONSET 0600. NAUSEA MILD SOB, HPI This 61-year-old male presents to the ER for evaluation of chest pain and mild shortness of breath. This patient does state he has a history of stents, and states he came to the ER today for evaluation. He states that his symptoms have been progressively getting worse over the past 2 days. ROS All systems reviewed and are negative except as per history of present illness. Medications Home Meds Reported Medications Albuterol Sulfate* (Ventolin HFA*) 18 Gm Hfa.aer.ad, 2 PUFF INHALATION Q4H, #1 INHALER 09/16/16 Albuterol/Ipratropium* (Combivent Respimat*) 20-100 Mcg/Inh - 4 Gm Aer.w.adap, 1 PUFF INHALATION QID, #1 INHALER 09/16/16 Hydrocodone/Acetaminophen (Concho 10-325 Tablet) 1 Each Tablet, 1 EACH PO DAILY Y for PRN, TAB 09/16/16 Salmeterol Xinaf-Fluticasone* (Advair*) 100/50 Diskus Inhaler, 1 INH INHALATION BID, #1 INHALER 09/16/16 Atorvastatin* (Atorvastatin*) 40 Mg Tablet, 40 MG PO QHS, #30 TAB 09/16/16 Pantoprazole* (Protonix*) 40 Mg Tablet.dr, 40 MG PO DAILY, TAB 07/27/16 Clopidogrel Bisulfate (Clopidogrel) 75 Mg Tablet, 75 MG PO DAILY, #30 TAB 07/27/16 Discontinued Reported Medications Hydrocodone/Acetaminophen (Concho 10-325 Tablet) 1 Each Tablet, 1 EACH PO NEEDED, TAB 08/14/16 Aspirin (Low Dose Aspirin) 81 Mg Tablet., 81 MG PO DAILY, #30 TAB 07/27/16 Atorvastatin Calcium* (Atorvastatin Calcium*) 20 Mg Tablet, 20 MG PO QHS, #30 TAB 07/27/16 Propranolol Hcl* (Propranolol Hcl*) Unknown Strength Tablet, PO DAILY, TAB PT SAYS HE TAKE MED HES NOT SURE HOW OFTEN HE TAKES OR THE DOSAGE PHARM HAS NO RECORD OF IT 07/27/16 Albuterol Sulfate* (Proair HFA*) 8.5 Gm Hfa.aer.ad, 2 PUFF INH Q6H Y for WHEEZING AND SOB, #1 INHALER 07/27/16 Albuterol/Ipratropium* (Combivent Respimat*) 20-100 Mcg/Inh - 4 Gm Aer.w.adap, 1 PUFF INHALATION QID, #1 INHALER 07/27/16 Salmeterol Xinaf-Fluticasone* (Advair*) 500/50 Diskus Inhaler, 1 INH INHALATION BID, #1 INHALER 07/27/16 Allergies Allergies: Coded Allergies: Penicillins (Verified Allergy, Severe, 09/16/16) Iodine and Iodide Containing Produc (Verified Allergy, Unknown, 09/16/16) PMhx/Soc History of Surgery: Yes (X 2 CARDO STENT PLACED IN MAR 2016 ) Anesthesia Reaction: No Hx Neurological Disorder: No Hx Respiratory Disorders: No Hx Cardiac Disorders: Yes (LA/CARDIAC STENT) Hx Psychiatric Problems: Yes (DECLINE TO STATE) Hx Miscellaneous Medical Probl: Yes (SMOKING/ETOH) Hx Alcohol Use: Yes Hx Substance Use: Yes (ETOH) Hx Tobacco Use: Yes Smoking Status: Never smoker Physical Exam Vitals Vital Signs Date Time Temp Pulse Resp B/P Pulse Ox O2 Delivery O2 Flow Rate FiO2 09/16/16 17:12 Nasal Cannula 2 09/16/16 17:09 59 18 110/62 97 09/16/16 10:24 98.8 70 21 125/88 99 Physical Exam INITIAL VITAL SIGNS: Reviewed by me GENERAL: The patient is well developed and appropriate for usual state of health in no apparent distress HEENT: Pupils equal, round, and reactive to light. EOMI. There is no scleral icterus. NECK: C-spine is soft and supple, there is no meningismus. There is no cervical lymphadenopathy. LUNGS: Clear to auscultation bilaterally. There are no rales, wheezes or rhonchi. HEART: Regular rate and rhythm, no murmurs, clicks, rubs or gallops. ABDOMEN: Soft, non-tender, non-distended. There are bowel sounds in all four quadrants. No rebound or guarding. EXTREMITIES: There is no peripheral cyanosis or edema. No focal swelling or erythema. NEUROLOGICAL: The patient moves all four extremities with 5/5 strength. Cranial nerves II - XII are intact. Normal gait. Alert and oriented SKIN: There is no apparent rash or petechiae. HEME/LYMPHATIC: There is no evidence of excessive bruising or lymphedema. PSYCHIATRIC: The patient does not appear anxious or depressed. Result Diagram: 09/16/16 1535 09/16/16 1535 Results 24 hrs Laboratory Tests Test 09/16/16 15:35 Activated Partial Thromboplast Time 27.7Sec Anion Gap 15 Basophils # 0.010^3/ul Basophils % 0.8% Blood Urea Nitrogen 16mg/dl Calcium Level 9.7mg/dl Carbon Dioxide Level 28mmol/L Chloride Level 103mmol/L Creatinine 0.80mg/dl Eosinophils # 0.110^3/ul Eosinophils % 1.4% Glucose Level 101mg/dl Hematocrit 39.1% Hemoglobin 13.2g/dl INR International Normalized Ratio 0.91 Lymphocytes # 1.810^3/ul Lymphocytes % 35.5% Mean Corpuscular Hemoglobin 32.3pg Mean Corpuscular Hemoglobin Concent 33.8g/dl Mean Corpuscular Volume 95.6fl Mean Platelet Volume 10.6fl Monocytes # 0.610^3/ul Monocytes % 12.0% Neutrophils # 2.510^3/ul Neutrophils % 50.1% Nucleated Red Blood Cells # 0.010^3/ul Nucleated Red Blood Cells % 0.0/100WBC Platelet Count 44946^3/UL Potassium Level 4.3mmol/L Prothrombin Time 12.3Sec Prothrombin Time Ratio 1.0 Red Blood Count 4.0910^6/ul Red Cell Distribution Width 13.7% Sodium Level 142mmol/L Troponin I < 0.012ng/ml White Blood Count 5.010^3/ul Current Medications Medications (Trade) Dose Ordered Sig/Amanda Route PRN Reason Start Time Stop Time Status Last Admin Dose Admin Aspirin (Aspirin) 325 mg ONCE ONCE PO 09/16/16 17:00 09/16/16 17:01 DC 09/16/16 17:36 Ondansetron HCl (Zofran Inj) 4 mg ER BRIDGE PRN IV NAUSEA AND/OR VOMITING 09/16/16 17:30 09/17/16 17:29 Acetaminophen (Tylenol Tab) 650 mg ER BRIDGE PRN PO MILD PAIN/FEVER 09/16/16 17:30 09/17/16 17:29 Morphine Sulfate (morphine) 4 mg ONCE STAT IV 09/16/16 17:29 09/16/16 17:32 DC 09/16/16 17:37 Morphine Sulfate (morphine) 4 mg ONCE STAT IV 09/16/16 17:38 09/16/16 17:39 DC Procedures/MDM EKG: Rate/Rhythm: [Normal Sinus Rhythm] QRS, ST, T-waves: [No changes consistent w/ acute ischemia] Impression: [No evidence of ischemia or arrhythmia] EKG: #2 Rate/Rhythm: [Normal Sinus Rhythm] QRS, ST, T-waves: [No changes consistent w/ acute ischemia] Impression: [No evidence of ischemia or arrhythmia] Chest X-ray 1V Interpreted by me: Soft Tissue: No acute abnormalities Bones: No acute abnormalities Mediastinum/Cardiac Silhouette/Lungs: [No acute abnormalities] This 61-year-old presents to the ER for evaluation of chest pain. The patient was seen 2 weeks ago for the same, however he was refusing a stress test at that time. I talked to the patient today and discussed the importance of going through the stress test. He verbalized understanding and is okay with the plan of care for admission at this time for stress test. This patient did have an EKG which read ST elevation LA, however this is incorrect. This patient does have risk factors including coronary artery disease and will be placed in for admission on the telemetry floor under the care of Dr. mercado Smoking Cessation Therapy: Pt. was lectured for greater than 3 minutes on the health risks of continued smoking and the benefits of cessation. Departure Diagnosis: Primary Impression: Chest pain Additional Impressions: Normocytic anemia Tobacco abuse Condition: Stable NICOLE GONZALEZ DO Sep 16, 2016 17:50
[2016-09-16] MEDS ORDERED: ALBUTEROL/IPRATROPIUM (NEB) 3 ML AMP HHN PRN (18:30)
--- NOTE | 2016-09-16 18:52 | HP ---
DATE OF ADMISSION: 09/16/2016 CHIEF COMPLAINT: Chest pain. HISTORY OF PRESENT ILLNESS: The patient is a 61-year-old male with a history of COPD, hypertension, dyslipidemia, noncompliance. The patient was recently hospitalized here by [facility] less than a week a go. He had left AMA and had come in for chest pain and refused stress test. Patient comes in still with persistent chest pain, the same pain he had at his last hospitalization. It has been going on for 2 weeks now. He says it gets worse with exertion. The patient has no other complaints. PAST MEDICAL HISTORY: As per HPI. HOME MEDICATIONS: Please see medication reconciliation. FAMILY HISTORY: Noncontributory. SOCIAL HISTORY: Remote history of smoking, quit in March 2016. Denies alcohol or illicit drug use. REVIEW OF SYSTEMS: A 12-point review of systems negative except for that stated in HPI. PHYSICAL EXAMINATION: VITAL SIGNS: Temperature is 98.8, pulse , respiratory rate 18. BP is 110/62, saturation 97% o n 2 liters. GENERAL: No acute distress, alert and oriented. HEENT: Normocephalic, atraumatic. CHEST: Clear to auscultation. CARDIOVASCULAR: Regular rate and rhythm. ABDOMEN: Nondistended, nontender, soft. EXTREMITIES: No clubbing, cyanosis, or edema. LABORATORIES: White count 7.0, hemoglobin . Platelets are 323. Chemistry within normal limit s. Troponin negative at this time. INR is 0.91. DIAGNOSTICS: Chest x-ray shows benign granulomas, bilaterally upper lung zones, otherwise normal ch est x-ray. EKG: No reports of any ischemia. ASSESSMENT AND PLAN: 1. Chest pain, rule out acute coronary syndrome. I have consulted Dr. Beasley of cardiology, will mike nd troponins, will treat with aspirin and Lipitor as well as nitroglycerin and morphine p.r.n. for p ain. 2. Chronic obstructive pulmonary disease, breathing treatments as needed. 3. History of coronary artery disease. Continue home Plavix and atorvastatin. The patient is stat us post stent placement in the past. 4. Prophylaxis. Sequential compression devices. Dictated By: LEANN LOZANO MD BS/NTS Conf#: [id number] DID#: [id number]
[2016-09-16 21:00] VITALS: Ht 170.2 cm; Wt 77.8 kg
[2016-09-16 21:15] VITALS: PULSE 75
[2016-09-16 22:14] LABS: CREATINE KINASE 60 IU/L (23-200)
[2016-09-16 22:28] LABS: CK-MB 0.99 ng/ml (0.0-2.4); TROPONIN-I < 0.012 ng/ml (0.00-0.12)
[2016-09-16 23:26] VITALS: BP 103/66; RESP 16
[2016-09-17] VITALS (8 sets, daily range): BP systolic 109–154; BP diastolic 64–87; PULSE 59–70; RESP 16–18
--- NOTE | 2016-09-17 11:52 | PN ---
Date/Time of Note Date/Time of Note DATE: 09/17/16 TIME: 11:47 Assessment/Plan VTE Prophylaxis VTE Prophylaxis Intervention: SCD's Lines/Catheters IV [facility] Saline Lock Urinary Cath still in place: No Assessment/Plan Assessment/Plan 1. Chest pain, rule out acute coronary syndrome. negative troponin, follow up with cardiology Dr. Beasley. 2. Chronic obstructive pulmonary disease, breathing treatments as needed. 3. History of coronary artery disease. Continue home Plavix and atorvastatin. The patient is status post stent placement in the past per the patient. 4. Prophylaxis. Sequential compression devices. Subjective 24 Hr Interval Summary Free Text/Dictation persistent left sided chest pain since last night. non-radiating Exam/Review of Systems Vital Signs Vitals Vital Signs Date Time Temp Pulse Resp B/P Pulse Ox O2 Delivery O2 Flow Rate FiO2 09/17/16 08:02 97.8 67 18 154/82 93 09/16/16 17:12 Nasal Cannula 2 Intake and Output 09/16/16 09/16/16 09/17/16 15:00 23:00 07:00 Intake Total 400 ml Balance 400 ml Exam Constitutional: alert, oriented, well developed Psych: nl mood/affect, no complaints Head: atraumatic, normocephalic Eyes: EOMI, nl conjunctiva, nl lids ENMT: nl external ears & nose, nl lips & teeth, nl nasal mucosa & septum Neck: non-tender, supple Respiratory: clear to auscultation, normal air movement, No congested cough, No crackles/rales, No diminished breath sounds, No intercostal retraction, No labored breathing, No other, No respirations, No tactile fremitus, No wheezing Cardiovascular: nl pulses, regular rate and rhythm, No S3, No S4, No bruits, No diastolic murmur, No edema, No gallop, No irregular rhythm, No jugular venous distention (JVD), No murmurs/extra sounds, No other, No rub, No systolic murmur Gastrointestinal: nl liver, spleen, non-tender, soft, No ascites, No bowel sounds, No distended, No firm, No hepatomegaly, No mass , No other, No rebound or guarding, No splenomegaly, No surgical scars, No tender Musculoskeletal: nl extremities to inspection Extremities: normal pulses, No calf tenderness, No clubbing, No cyanosis, No edema, No other, No palpable cord, No pitting pedal edema, No tenderness Neurological: CR[employer] II-XII intact, nl mental status, nl speech, nl strength Skin: nl turgor Lymph: nl lymph nodes Results Result Diagram: 09/16/16 1535 09/16/16 1535 Results 24 hrs Laboratory Tests Test 09/16/16 15:35 09/16/16 21:45 Activated Partial Thromboplast Time 27.7 Anion Gap 15 Basophils # 0.0 Basophils % 0.8 Blood Urea Nitrogen 16 Calcium Level 9.7 Carbon Dioxide Level 28 Chloride Level 103 Creatinine 0.80 Eosinophils # 0.1 Eosinophils % 1.4 Glucose Level 101 Hematocrit 39.1 L Hemoglobin 13.2 L INR International Normalized Ratio 0.91 Lymphocytes # 1.8 Lymphocytes % 35.5 Mean Corpuscular Hemoglobin 32.3 Mean Corpuscular Hemoglobin Concent 33.8 Mean Corpuscular Volume 95.6 Mean Platelet Volume 10.6 H Monocytes # 0.6 Monocytes % 12.0 H Neutrophils # 2.5 Neutrophils % 50.1 Nucleated Red Blood Cells # 0.0 Nucleated Red Blood Cells % 0.0 Platelet Count 323 Potassium Level 4.3 Prothrombin Time 12.3 Prothrombin Time Ratio 1.0 Red Blood Count 4.09 L Red Cell Distribution Width 13.7 Sodium Level 142 Troponin I < 0.012 < 0.012 White Blood Count 5.0 # Creatine Kinase 60 Creatine Kinase Index 1.7 Creatinine Kinase MB (Mass) 0.99 VENTURA DARDEN MD Sep 17, 2016 11:51
[2016-09-17] MEDS ORDERED: HYDROCODONE/APAP (10/325) TAB PO PRN (12:00)
[2016-09-17 12:37] LABS: CREATINE KINASE 55 IU/L (23-200)
[2016-09-17 12:59] LABS: CK-MB 0.88 ng/ml (0.0-2.4); TROPONIN-I < 0.012 ng/ml (0.00-0.12)
[2016-09-17] MEDS: SALMETEROL/FLUTICASONE 100/50 INHA INH SCH ×2 (13:01→20:36)
[2016-09-17] MEDS: PANTOPRAZOLE (EC) 40 MG TAB PO SCH (13:02)
[2016-09-17] MEDS: CLOPIDOGREL 75 MG TAB PO SCH (13:02)
[2016-09-17] MEDS: ALBUTEROL/IPRATROPIUM (NEB) 3 ML AMP HHN SCH ×2 (16:00→19:23)
[2016-09-17] MEDS ORDERED: morphine 10 MG INJ IM PRN (16:30)
[2016-09-17] MEDS: morphine 2 MG INJ IV PRN ×2 (17:06→21:13)
--- NOTE | 2016-09-17 18:15 | CONS ---
Date/Time of Note Date/Time of Note DATE: 09/17/16 TIME: 18:07 Assessment/Plan Assessment/Plan Chief Complaint/Hosp Course Chest pain - ruled out for myocardial infarction, suspect malingering Coronary artery disease - status post coronary stent x 2 (March 2016, [facility]) Hypertension Dyslipidemia Chronic obstructive pulmonary disease Recommendations: -echocardiogram 07/27/2016 showed LVEF 55-60%, mild diastolic dysfunction - will not repeat at this time -no further cardiac work up at this time -start carvedilol 6.25mg BID and Imdur 30mg daily -continue aspirin 81mg and clopidogrel 75mg daily -continue atorvastatin to 40mg daily Problems: Consultation Date/Type/Reason Admit Date/Time Sep 16, 2016 at 17:23 Type of Consultation: Cardiology Hx of Present Illness The patient is a 61 year-old male who presents with chest pain. He reports longstanding waxing and waning chest pain, but this has become nearly a constant chest pressure during the past two weeks. He has had several hospitalizations here for chest pain. He had refused cardiac stress testing, claiming to have had an unspecified adverse reaction to stress testing. He left against medical advice during a recent hospitalization 2016. He reports having implantation of two coronary stents in March 2016 at [facility]. 14 point review of systems negative other than per HPI. 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) Smoking Status: Former smoker (quit March 2016) Drug Use: none Exam/Review of Systems Vital Signs Vitals Vital Signs Date Time Temp Pulse Resp B/P Pulse Ox O2 Delivery O2 Flow Rate FiO2 09/17/16 16:32 80 20 98 21 09/17/16 11:49 97.6 144/87 09/16/16 17:12 Nasal Cannula 2 Intake and Output 09/16/16 09/16/16 09/17/16 15:00 23:00 07:00 Intake Total 400 ml Balance 400 ml Exam Constitutional: alert, No distress Psych: nl mood/affect, no complaints Head: atraumatic, normocephalic Eyes: nl conjunctiva, nl lids ENMT: nl external ears & nose, nl nasal mucosa & septum Neck: non-tender, supple, No jvd Respiratory: clear to auscultation, normal air movement Cardiovascular: regular rate and rhythm Gastrointestinal: non-tender, soft Musculoskeletal: nl extremities to inspection Extremities: No clubbing, No cyanosis, No edema Results Result Diagram: 09/16/16 1535 09/16/16 1535 Results 24 hrs Laboratory Tests Test 09/16/16 21:45 09/17/16 12:05 Creatine Kinase 60 55 Creatine Kinase Index 1.7 1.6 Creatinine Kinase MB (Mass) 0.99 0.88 Troponin I < 0.012 < 0.012 Medications Medications Current Medications Atorvastatin Calcium (Lipitor) 40 mg QHS PO ; Start 09/17/16 at 21:00 Clopidogrel Bisulfate (plaVIX) 75 mg DAILY PO Last administered on 09/17/16 13 :02; Admin Dose 75 MG; Start 09/17/16 at 12:00 Acetaminophen/ Hydrocodone Bitart ([place] (10/325)) 1 tab Q4H PRN PO PRN Last administered on 09/17/16 13:02; Admin Dose 1 TAB; Start 09/17/16 at 12:00 Pantoprazole (Protonix Tab) 40 mg DAILY@06 PO Last administered on 09/17/16 13 :02; Admin Dose 40 MG; Start 09/17/16 at 12:00 Salmeterol Xinafoate/ Fluticasone (Advair 100/50 Diskus) 1 inh BID INH Last administered on 09/17/16 13:01; Admin Dose 1 INH; Start 09/17/16 at 13:00 Morphine Sulfate (morphine) 2 mg Q4H PRN IV MODERATE PAIN LEVEL 4-6 Last administered on 09/17/16 17:06; Admin Dose 2 MG; Start 09/17/16 at 16:57 EUSEBIA HAMILTON MD Sep 17, 2016 18:15
[2016-09-17] MEDS: ISOSORBIDE MONONITRATE(SR)30 MG TAB PO SCH (18:29)
[2016-09-17] MEDS ORDERED: morphine 2 MG INJ IV PRN (20:30)
[2016-09-17] MEDS: ATORVASTATIN 40 MG TAB PO SCH (20:36)
[2016-09-18] VITALS (11 sets, daily range): BP systolic 86–110; BP diastolic 51–70; PULSE 58–87; RESP 16–18
[2016-09-18] MEDS: morphine 2 MG INJ IV PRN ×6 (01:16→23:55)
[2016-09-18] MEDS: PANTOPRAZOLE (EC) 40 MG TAB PO SCH (06:30)
[2016-09-18] MEDS: ALBUTEROL/IPRATROPIUM (NEB) 3 ML AMP HHN SCH ×4 (07:53→19:44)
[2016-09-18] MEDS: SALMETEROL/FLUTICASONE 100/50 INHA INH SCH ×2 (08:49→20:11)
[2016-09-18] MEDS: ISOSORBIDE MONONITRATE(SR)30 MG TAB PO SCH (08:50)
[2016-09-18] MEDS: CLOPIDOGREL 75 MG TAB PO SCH (08:50)
[2016-09-18] MEDS ORDERED: CARV6.2579 PO (13:15)
[2016-09-18] MEDS ORDERED: ISOS30TA5 PO (13:15)
--- NOTE | 2016-09-18 13:15 | PDOCDIS ---
Discharge Instructions DIAGNOSIS Discharge Diagnosis: chest pain CONDITION Patient Condition: Stable HOME CARE INSTRUCTIONS: Special Diet: LOW FAT LOW CHOL ACTIVITY: Activity Restrictions: Slowly Increase Activity Rest between Activity FOLLOW UP/APPOINTMENTS Appointments Followup with your primary doctor within the next 1-2 weeks. If you don't have one please let someone know, we can give you resources that may help you pick one. You may also call your insurance company to assign one to you. Review your medication list with your nurse before leaving and if you need new prescriptions please let your nurse know. I may have made changes to your home medications or given you new prescriptions , please let your primary doctor know as well. Stay compliant with your medications and report any side effects to your PCP or pharmacist. Return to the ER if you have any concerns and cannot reach your doctors or call your insurance company, they usually have a nurse that can help you. ORLIN WEINBERG Sep 18, 2016 13:15
--- NOTE | 2016-09-18 13:19 | DS ---
Date/Time of Note Date/Time of Note DATE: 09/18/16 TIME: 13:16 Discharge Summary Admission/Discharge Info Admit Date/Time Sep 16, 2016 at 17:23 Discharge Date/Time 09/19/15 Final Diagnosis Chest pain - ruled out for myocardial infarction, suspect malingering Coronary artery disease - status post coronary stent x 2 (March 2016, [facility]) Hypertension Dyslipidemia Chronic obstructive pulmonary disease Patient Condition: Stable Consults Vinod Beasley: cardiology Procedures PROCEDURE: XR Chest. CLINICAL INDICATION: Shortness of breath. TECHNIQUE: Single frontal view. COMPARISON: 09/10/2016. FINDINGS: There are benign calcified granulomas bilaterally in the upper lung zones. The lungs are otherwise clear. The heart size is normal. There is no pleural effusion. There is no pneumothorax. IMPRESSION: 1. Benign calcified granulomas bilaterally in the upper lung zones. 2. Otherwise normal chest x-ray. RPTAT: QQ .Truong Castellano MD, MD Date Time Electronically viewed and signed by .Truong Castellano MD, MD on 09/16/2016 17:30 .R/ Hospital Course 61 yo M with a hx of CAD and stenting in the past who came in for chest pain. He was stephanie here not too long ago and left AMA and refused stress testing. He has been ruled out with 3 negative cardiac enzymes Cardiology reviewed and recommendations are as below: Chest pain - ruled out for myocardial infarction, suspect malingering Coronary artery disease - status post coronary stent x 2 (March 2016, [facility]) Hypertension Dyslipidemia Chronic obstructive pulmonary disease Recommendations: -echocardiogram 07/27/2016 showed LVEF 55-60%, mild diastolic dysfunction - will not repeat at this time -no further cardiac work up at this time -start carvedilol 6.25mg BID and Imdur 30mg daily -continue aspirin 81mg and clopidogrel 75mg daily -continue atorvastatin to 40mg daily Comorbidities were also aggressively managed as per Med records. Patient at this time has been evaluated and examined in detail and is assessed to be in stable condition and ready for discharge as he has refused further intervention. . Home Meds Active Scripts Carvedilol* (Carvedilol*) 6.25 Mg Tablet, 6.25 MG PO BID for 30 Days, TAB 2 Refills Prov:WINNIE WEINBERGCHRISTIAN M. 09/18/16 Isosorbide Mononitrate* (Isosorbide Mononitrate*) 30 Mg Tab.er.24h, 30 MG PO DAILY for 30 Days, 2 Refills Prov:ORLIN WEINBERG M. 09/18/16 Reported Medications Albuterol Sulfate* (Ventolin HFA*) 18 Gm Hfa.aer.ad, 2 PUFF INHALATION Q4H, #1 INHALER 09/16/16 Albuterol/Ipratropium* (Combivent Respimat*) 20-100 Mcg/Inh - 4 Gm Aer.w.adap, 1 PUFF INHALATION QID, #1 INHALER 09/16/16 Hydrocodone/Acetaminophen ([place] 10-325 Tablet) 1 Each Tablet, 1 EACH PO DAILY Y for PRN, TAB 09/16/16 Salmeterol Xinaf-Fluticasone* (Advair*) 100/50 Diskus Inhaler, 1 INH INHALATION BID, #1 INHALER 09/16/16 Atorvastatin* (Atorvastatin*) 40 Mg Tablet, 40 MG PO QHS, #30 TAB 09/16/16 Pantoprazole* (Protonix*) 40 Mg Tablet.dr, 40 MG PO DAILY, TAB 07/27/16 Clopidogrel Bisulfate (Clopidogrel) 75 Mg Tablet, 75 MG PO DAILY, #30 TAB 07/27/16 Discontinued Reported Medications Hydrocodone/Acetaminophen ([place] 10-325 Tablet) 1 Each Tablet, 1 EACH PO NEEDED, TAB 08/14/16 Aspirin (Low Dose Aspirin) 81 Mg Tablet.dr, 81 MG PO DAILY, #30 TAB 07/27/16 Atorvastatin Calcium* (Atorvastatin Calcium*) 20 Mg Tablet, 20 MG PO QHS, #30 TAB 07/27/16 Propranolol Hcl* (Propranolol Hcl*) Unknown Strength Tablet, PO DAILY, TAB PT SAYS HE TAKE MED HES NOT SURE HOW OFTEN HE TAKES OR THE [facility]AGE PHARM HAS NO RECORD OF IT 07/27/16 Albuterol Sulfate* (Proair HFA*) 8.5 Gm Hfa.aer.ad, 2 PUFF INH Q6H Y for WHEEZING AND SOB, #1 INHALER 07/27/16 Albuterol/Ipratropium* (Combivent Respimat*) 20-100 Mcg/Inh - 4 Gm Aer.w.adap, 1 PUFF INHALATION QID, #1 INHALER 07/27/16 Salmeterol Xinaf-Fluticasone* (Advair*) 500/50 Diskus Inhaler, 1 INH INHALATION BID, #1 INHALER 07/27/16 Follow-up Plan * With primary doctor and 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 ORLIN WEINBERG Sep 18, 2016 13:19
[2016-09-18] MEDS: ATORVASTATIN 40 MG TAB PO SCH (20:08)
[2016-09-18] MEDS: ALBUTEROL HFA 8 GM INHALER INH PRN (20:11)
[2016-09-19] VITALS (12 sets, daily range): BP systolic 90–125; BP diastolic 51–68; PULSE 61–74; RESP 17–18
[2016-09-19] MEDS: PANTOPRAZOLE (EC) 40 MG TAB PO SCH ×2 (04:29→04:31)
[2016-09-19] MEDS: morphine 2 MG INJ IV PRN ×5 (04:29→21:50)
[2016-09-19] MEDS: ALBUTEROL/IPRATROPIUM (NEB) 3 ML AMP HHN SCH ×4 (08:00→19:49)
[2016-09-19] MEDS: ISOSORBIDE MONONITRATE(SR)30 MG TAB PO SCH (08:12)
[2016-09-19] MEDS: CLOPIDOGREL 75 MG TAB PO SCH (08:34)
[2016-09-19] MEDS: SALMETEROL/FLUTICASONE 100/50 INHA INH SCH ×2 (08:34→21:50)
--- NOTE | 2016-09-19 19:01 | CONS ---
Date/Time of Note Date/Time of Note DATE: 09/19/16 TIME: 18:59 Assessment/Plan Assessment/Plan Chief Complaint/Hosp Course Chest pain - ruled out for myocardial infarction, suspect malingering Coronary artery disease - per patient, status post coronary stent x 2 ( March 2016, [facility]) Hypertension Dyslipidemia Chronic obstructive pulmonary disease Recommendations: -echocardiogram 07/27/2016 showed LVEF 55-60%, mild diastolic dysfunction - will not repeat at this time -Lexiscan SPECT tomorrow -continue carvedilol 6.25mg BID and Imdur 30mg daily -continue aspirin 81mg and clopidogrel 75mg daily -continue atorvastatin to 40mg daily Problems: Consultation Date/Type/Reason Admit Date/Time Sep 16, 2016 at 17:23 Initial Consult Date Type of Consultation: Cardiology 24 HR Interval Summary Free Text/Dictation Continues to complain of chest pain. Previously refused cardiac stress test, but now insisting on getting one. He now states that his prior adverse reaction was just headache. Detailed Summary Additional Comments 14 point review of systems without changes. Exam/Review of Systems Vital Signs Vitals Vital Signs Date Time Temp Pulse Resp B/P Pulse Ox O2 Delivery O2 Flow Rate FiO2 09/19/16 16:48 21 09/19/16 16:08 98.1 64 18 125/68 96 09/19/16 04:00 Room Air 09/16/16 17:12 2 Intake and Output 09/18/16 09/18/16 09/19/16 15:00 23:00 07:00 Intake Total 700 ml 250 ml Balance 700 ml 250 ml Exam Constitutional: alert, No distress Psych: nl mood/affect, no complaints Head: atraumatic, normocephalic Eyes: nl conjunctiva, nl lids ENMT: nl external ears & nose, nl nasal mucosa & septum Neck: non-tender, supple, No jvd Respiratory: clear to auscultation, normal air movement Cardiovascular: regular rate and rhythm Gastrointestinal: non-tender, soft Musculoskeletal: nl extremities to inspection Extremities: No clubbing, No cyanosis, No edema Results Result Diagram: 09/16/16 1535 09/16/16 1535 Medications Medications Current Medications Atorvastatin Calcium (Lipitor) 40 mg QHS PO Last administered on 09/18/16t 20: 08; Admin Dose 40 MG; Start 09/17/16 at 21:00 Clopidogrel Bisulfate (plaVIX) 75 mg DAILY PO Last administered on 09/19/16 08 :34; Admin Dose 75 MG; Start 09/17/16 at 12:00 Acetaminophen/ Hydrocodone Bitart ([place] (10/325)) 1 tab Q4H PRN PO PRN Last administered on 09/17/16 13:02; Admin Dose 1 TAB; Start 09/17/16 at 12:00 Pantoprazole (Protonix Tab) 40 mg DAILY@06 PO Last administered on 09/18/16 06 :30; Admin Dose 40 MG; Start 09/17/16 at 12:00 Salmeterol Xinafoate/ Fluticasone (Advair 100/50 Diskus) 1 inh BID INH Last administered on 09/19/16 08:34; Admin Dose 1 INH; Start 09/17/16 at 13:00 Morphine Sulfate (morphine) 2 mg Q4H PRN IV MODERATE PAIN LEVEL 4-6 Last administered on 09/19/16 16:43; Admin Dose 2 MG; Start 09/17/16 at 16:57 Carvedilol (Coreg) 6.25 mg BID PO Last administered on 09/18/16 08:50; Admin Dose 6.25 MG; Start 09/17/16 at 21:00 Isosorbide Mononitrate (Imdur) 30 mg DAILY PO Last administered on 09/18/16 08 :50; Admin Dose 30 MG; Start 09/17/16 at 18:30 EUSEBIA HAMILTON MD Sep 19, 2016 19:01
[2016-09-19] MEDS: ATORVASTATIN 40 MG TAB PO SCH (21:49)
[2016-09-19] MEDS: ALBUTEROL HFA 8 GM INHALER INH PRN (21:51)
--- NOTE | 2016-09-19 22:29 | PN ---
Date/Time of Note Date/Time of Note DATE: 09/19/16 TIME: 22:25 Assessment/Plan VTE Prophylaxis VTE Prophylaxis Intervention: ambulation, SCD's Lines/Catheters IV Catheter Type (from Nrs): Saline Lock Urinary Cath still in place: No Assessment/Plan Assessment/Plan Chest pain - ruled out for Acute myocardial infarction Coronary artery disease - status post coronary stent x 2 (March 2016, [facility]) Hypertension Dyslipidemia Chronic obstructive pulmonary disease PLAN: * Stress test planned for tomorrow * Continue current meds and suportive care * f/u findings * appreciate cardiology recs. Subjective 24 Hr Interval Summary Free Text/Dictation Patient seen and examined. His discharge was cancelled yesterday after patient stated he continued to have chest pain and consented to stress test. No CP so far today, but still complaining of some dizziness. Exam/Review of Systems Vital Signs Vitals Vital Signs Date Time Temp Pulse Resp B/P Pulse Ox O2 Delivery O2 Flow Rate FiO2 09/19/16 20:12 71 09/19/16 20:00 98.2 17 107/64 93 09/19/16 16:48 21 09/19/16 04:00 Room Air 09/16/16 17:12 2 Intake and Output 09/18/16 09/18/16 09/19/16 15:00 23:00 07:00 Intake Total 700 ml 250 ml Balance 700 ml 250 ml Exam Constitutional: alert, oriented, No distress Head: atraumatic, normocephalic Eyes: PERRL ENMT: mucosa pink and moist Neck: non-tender, supple Respiratory: clear to auscultation Cardiovascular: nl pulses, regular rate and rhythm Gastrointestinal: bowel sounds, non-tender, soft Extremities: No edema Neurological: nl mental status, nl speech, other (ambulant), No confused Results Result Diagram: 09/16/16 1535 09/16/16 1535 Medications Medications Current Medications Atorvastatin Calcium (Lipitor) 40 mg QHS PO Last administered on 09/19/16 21: 49; Admin Dose 40 MG; Start 09/17/16 at 21:00 Clopidogrel Bisulfate (plaVIX) 75 mg DAILY PO Last administered on 09/19/16 08 :34; Admin Dose 75 MG; Start 09/17/16 at 12:00 Acetaminophen/ Hydrocodone Bitart ([place] (10/325)) 1 tab Q4H PRN PO PRN Last administered on 09/17/16 13:02; Admin Dose 1 TAB; Start 09/17/16 at 12:00 Pantoprazole (Protonix Tab) 40 mg DAILY@06 PO Last administered on 09/18/16 06 :30; Admin Dose 40 MG; Start 09/17/16 at 12:00 Salmeterol Xinafoate/ Fluticasone (Advair 100/50 Diskus) 1 inh BID INH Last administered on 09/19/16 21:50; Admin Dose 1 INH; Start 09/17/16 at 13:00 Morphine Sulfate (morphine) 2 mg Q4H PRN IV MODERATE PAIN LEVEL 4-6 Last administered on 09/19/16 21:50; Admin Dose 2 MG; Start 09/17/16 at 16:57 Carvedilol (Coreg) 6.25 mg BID PO Last administered on 09/18/16 08:50; Admin Dose 6.25 MG; Start 09/17/16 at 21:00 Isosorbide Mononitrate (Imdur) 30 mg DAILY PO Last administered on 09/18/16 08 :50; Admin Dose 30 MG; Start 09/17/16 at 18:30 Regadenoson (Lexiscan) 0.4 mg ONCE ONCE IV ; Start 09/20/16 at 09:00; Stop at 09:01 Procedures Procedures PROCEDURE: XR Chest. CLINICAL INDICATION: Shortness of breath. TECHNIQUE: Single frontal view. COMPARISON: 09/10/2016. FINDINGS: There are benign calcified granulomas bilaterally in the upper lung zones. The lungs are otherwise clear. The heart size is normal. There is no pleural effusion. There is no pneumothorax. IMPRESSION: 1. Benign calcified granulomas bilaterally in the upper lung zones. 2. Otherwise normal chest x-ray. RPTAT: QQ .Truong Castellano MD, Date Time Electronically viewed and signed by .Truong Castellano MD, on 09/16/2016 17:30 .ORLIN MEJIA Sep 19, 2016 22:29
[2016-09-20] VITALS (8 sets, daily range): BP systolic 107–116; BP diastolic 54–69; PULSE 62–77; RESP 14–18
[2016-09-20] MEDS: morphine 2 MG INJ IV PRN ×4 (01:18→14:59)
[2016-09-20] MEDS: PANTOPRAZOLE (EC) 40 MG TAB PO SCH (05:54)
[2016-09-20 07:37] LABS: ADD SCAN DIFF NO
[2016-09-20 07:48] LABS: BASOPHILS % 0.6 % (0.0-2.0); EOSINOPHILS # 0.1 10^3/ul (0.0-0.5); EOSINOPHILS % 1.4 % (0.0-7.0); HEMATOCRIT 37.5 % (42.0-52.0); HEMOGLOBIN 12.1 g/dl (14.0-18.0); LYMPHOCYTES % 32.3 % (15.0-51.0); MEAN CORPUSCULAR HEMOGLOBIN 31.1 pg (29.0-33.0); MEAN CORPUSCULAR HGB CONC 32.3 g/dl (32.0-37.0); MEAN CORPUSCULAR VOLUME 96.4 fl (82.0-101.0); MEAN PLATELET VOLUME 10.6 fl (7.4-10.4); MONOCYTE # 0.9 10^3/ul (0.3-0.9); MONOCYTES % 13.9 % (0.0-11.0); NEUTROPHIL # 3.2 10^3/ul (1.6-7.5); NEUTROPHILS % 51.6 % (39.0-77.0); PLATELET COUNT 283 10^3/UL (140-415); RED BLOOD COUNT 3.89 10^6/ul (4.70-6.10); WHITE BLOOD COUNT 6.3 10^3/ul (4.8-10.8)
[2016-09-20] MEDS: ALBUTEROL/IPRATROPIUM (NEB) 3 ML AMP HHN SCH ×3 (07:58→16:00)
[2016-09-20 08:01] LABS: POTASSIUM 4.2 mmol/L (3.5-5.1)
[2016-09-20 08:04] LABS: CREATININE 0.86 mg/dl (0.61-1.24)
[2016-09-20 08:05] LABS: CALCIUM 8.9 mg/dl (8.4-10.2); MAGNESIUM 2.1 mg/dl (1.7-2.5)
[2016-09-20 08:07] LABS: ALBUMIN 3.8 g/dl (3.3-4.9)
[2016-09-20 08:09] LABS: BILIRUBIN,INDIRECT 0.2 mg/dl (0-1.1); BILIRUBIN,TOTAL 0.2 mg/dl (0.2-1.3)
[2016-09-20 08:10] LABS: TOTAL PROTEIN 6.8 g/dl (6.1-8.1)
[2016-09-20] MEDS ORDERED: REGADENOSON 0.4 MG/5 ML SYG ONE (08:52)
[2016-09-20] MEDS ORDERED: REGADENOSON 0.4 MG/5 ML SYG IV ONE (09:00)
[2016-09-20] MEDS: ISOSORBIDE MONONITRATE(SR)30 MG TAB PO SCH (09:00)
--- NOTE | 2016-09-20 10:02 | OPR ---
Date/Time of Note Date/Time of Note DATE: 09/20/16 TIME: 10:01 Operative Report Free Text/Dictation Nuclear medicine myocardial perfusion imaging: Date: 09/20/2016 Indication: Atypical chest pain, h/o CAD s/p PCI After informed consent, the patient was given IV Lexiscan. Pt was monitored for a total of 8 minutes post-infusion without any sings of arrhythmias. Patient had a headache and became agitated transiently but eventually was cooperative. Ongoing chest pain unchanged during Lexiscan. No EKG changes. Please refer to separate note for imaging results. TOM KHAN Sep 20, 2016 10:02
--- NOTE | 2016-09-20 10:03 | CONS ---
Date/Time of Note Date/Time of Note DATE: 09/20/16 TIME: 10:02 Assessment/Plan Assessment/Plan Chief Complaint/Hosp Course Chest pain - ruled out for myocardial infarction, suspect malingering Coronary artery disease - per patient, status post coronary stent x 2 ( March 2016, [facility]) Hypertension Dyslipidemia Chronic obstructive pulmonary disease -f/u Lexiscan from this am. If negative ok for discharge from cardiology perspective -continue carvedilol 6.25mg BID and Imdur 30mg daily -continue aspirin 81mg and clopidogrel 75mg daily -continue atorvastatin to 40mg daily Problems: Consultation Date/Type/Reason Admit Date/Time Sep 16, 2016 at 17:23 Initial Consult Date Type of Consultation: Cardiology 24 HR Interval Summary Free Text/Dictation No o/n events. Still complaining of chest pain. Exam/Review of Systems Vital Signs Vitals Vital Signs Date Time Temp Pulse Resp B/P Pulse Ox O2 Delivery O2 Flow Rate FiO2 09/20/16 08:21 66 09/20/16 04:28 98.0 17 109/56 95 09/19/16 16:48 21 09/19/16 04:00 Room Air 09/16/16 17:12 2 Intake and Output 09/19/16 09/19/16 09/20/16 15:00 23:00 07:00 Intake Total 1220 ml 250 ml Balance 1220 ml 250 ml Exam Constitutional: alert, oriented Head: normocephalic Neck: No jvd Respiratory: wheezing, No clear to auscultation, No crackles/rales Cardiovascular: regular rate and rhythm, No edema, No systolic murmur Gastrointestinal: soft, No non-tender Results Result Diagram: 09/20/16 0705 09/20/16 0640 Results 24 hrs Laboratory Tests Test 09/20/16 06:40 09/20/16 07:05 Anion Gap 15 Blood Urea Nitrogen 28 H Calcium Level 8.9 Carbon Dioxide Level 28 Chloride Level 103 Creatinine 0.86 Glucose Level 94 Magnesium Level 2.1 Potassium Level 4.2 Sodium Level 142 Alanine Aminotransferase (ALT/SGPT) 19 Albumin 3.8 Alkaline Phosphatase 142 H Aspartate Amino Transf (AST/SGOT) 18 Basophils # 0.0 Basophils % 0.6 Direct Bilirubin 0.00 Eosinophils # 0.1 Eosinophils % 1.4 Hematocrit 37.5 L Hemoglobin 12.1 L Indirect Bilirubin 0.2 Lymphocytes # 2.0 Lymphocytes % 32.3 Mean Corpuscular Hemoglobin 31.1 Mean Corpuscular Hemoglobin Concent 32.3 Mean Corpuscular Volume 96.4 Mean Platelet Volume 10.6 H Monocytes # 0.9 Monocytes % 13.9 H Neutrophils # 3.2 Neutrophils % 51.6 Nucleated Red Blood Cells # 0.0 Nucleated Red Blood Cells % 0.0 Platelet Count 283 Red Blood Count 3.89 L Red Cell Distribution Width 14.0 Total Bilirubin 0.2 Total Protein 6.8 White Blood Count 6.3 # Medications Medications Current Medications Atorvastatin Calcium (Lipitor) 40 mg QHS PO Last administered on 09/19/16 21: 49; Admin Dose 40 MG; Start 09/17/16 at 21:00 Clopidogrel Bisulfate (plaVIX) 75 mg DAILY PO Last administered on 09/19/16 08 :34; Admin Dose 75 MG; Start 09/17/16 at 12:00 Acetaminophen/ Hydrocodone Bitart ([place] (10/325)) 1 tab Q4H PRN PO PRN Last administered on 09/17/16 13:02; Admin Dose 1 TAB; Start 09/17/16 at 12:00 Pantoprazole (Protonix Tab) 40 mg DAILY@06 PO Last administered on 09/20/16 05 :54; Admin Dose 40 MG; Start 09/17/16 at 12:00 Salmeterol Xinafoate/ Fluticasone (Advair 100/50 Diskus) 1 inh BID INH Last administered on 09/19/16 21:50; Admin Dose 1 INH; Start 09/17/16 at 13:00 Morphine Sulfate (morphine) 2 mg Q4H PRN IV MODERATE PAIN LEVEL 4-6 Last administered on 09/20/16 06:39; Admin Dose 2 MG; Start 09/17/16 at 16:57 Carvedilol (Coreg) 6.25 mg BID PO Last administered on 09/18/16 08:50; Admin Dose 6.25 MG; Start 09/17/16 at 21:00 Isosorbide Mononitrate (Imdur) 30 mg DAILY PO Last administered on 09/18/16 08 :50; Admin Dose 30 MG; Start 09/17/16 at 18:30 TOM KHAN Sep 20, 2016 10:03
[2016-09-20] MEDS: SALMETEROL/FLUTICASONE 100/50 INHA INH SCH (10:41)
[2016-09-20] MEDS: CLOPIDOGREL 75 MG TAB PO SCH (10:41)
--- NOTE | 2016-09-20 10:50 | PN ---
Date/Time of Note Date/Time of Note DATE: 09/20/16 TIME: 10:47 Assessment/Plan VTE Prophylaxis VTE Prophylaxis Intervention: LMWH Lines/Catheters IV [facility] Saline Lock Urinary Cath still in place: No Assessment/Plan Chief Complaint/Hosp Course A/P 1) CP; no acs. check stress; +/- dc home 2) Chr CAD; cont asa/plavix 3) Chr copd 4) Ac bronchitis; +/- pleurisy; adjust Rx 5) Nonadherence 6) Past tobacco 7) Anemia; stable Problems: Subjective 24 Hr Interval Summary Free Text/Dictation cough, wheeze, atypical cp. hungry. Exam/Review of Systems Vital Signs Vitals Vital Signs Date Time Temp Pulse Resp B/P Pulse Ox O2 Delivery O2 Flow Rate FiO2 09/20/16 08:21 66 09/20/16 04:28 98.0 17 109/56 95 09/19/16 16:48 21 09/19/16 04:00 Room Air 09/16/16 17:12 2 Intake and Output 09/19/16 09/19/16 09/20/16 15:00 23:00 07:00 Intake Total 1220 ml 250 ml Balance 1220 ml 250 ml Exam Respiratory: diminished breath sounds, wheezing Cardiovascular: regular rate and rhythm Gastrointestinal: non-tender, soft Neurological: other (agitated) Results Result Diagram: 09/20/16 0705 09/20/16 0640 Results 24 hrs Laboratory Tests Test 09/20/16 06:40 09/20/16 07:05 Anion Gap 15 Blood Urea Nitrogen 28 H Calcium Level 8.9 Carbon Dioxide Level 28 Chloride Level 103 Creatinine 0.86 Glucose Level 94 Magnesium Level 2.1 Potassium Level 4.2 Sodium Level 142 Alanine Aminotransferase (ALT/SGPT) 19 Albumin 3.8 Alkaline Phosphatase 142 H Aspartate Amino Transf (AST/SGOT) 18 Basophils # 0.0 Basophils % 0.6 Direct Bilirubin 0.00 Eosinophils # 0.1 Eosinophils % 1.4 Hematocrit 37.5 L Hemoglobin 12.1 L Indirect Bilirubin 0.2 Lymphocytes # 2.0 Lymphocytes % 32.3 Mean Corpuscular Hemoglobin 31.1 Mean Corpuscular Hemoglobin Concent 32.3 Mean Corpuscular Volume 96.4 Mean Platelet Volume 10.6 H Monocytes # 0.9 Monocytes % 13.9 H Neutrophils # 3.2 Neutrophils % 51.6 Nucleated Red Blood Cells # 0.0 Nucleated Red Blood Cells % 0.0 Platelet Count 283 Red Blood Count 3.89 L Red Cell Distribution Width 14.0 Total Bilirubin 0.2 Total Protein 6.8 White Blood Count 6.3 # Medications Medications Current Medications Atorvastatin Calcium (Lipitor) 40 mg QHS PO Last administered on 09/19/16 21: 49; Admin Dose 40 MG; Start 09/17/16 at 21:00 Clopidogrel Bisulfate (plaVIX) 75 mg DAILY PO Last administered on 09/20/16 10 :41; Admin Dose 75 MG; Start 09/17/16 at 12:00 Acetaminophen/ Hydrocodone Bitart ([place] (10)) 1 tab Q4H PRN PO PRN Last administered on 09/17/16 13:02; Admin Dose 1 TAB; Start 09/17/16 at 12:00 Pantoprazole (Protonix Tab) 40 mg DAILY@06 PO Last administered on 09/20/16 05 :54; Admin Dose 40 MG; Start 09/17/16 at 12:00 Salmeterol Xinafoate/ Fluticasone (Advair 100/50 Diskus) 1 inh BID INH Last administered on 09/20/16 10:41; Admin Dose 1 INH; Start 09/17/16 at 13:00 Morphine Sulfate (morphine) 2 mg Q4H PRN IV MODERATE PAIN LEVEL 4-6 Last administered on 09/20/16 10:41; Admin Dose 2 MG; Start 09/17/16 at 16:57 Carvedilol (Coreg) 6.25 mg BID PO Last administered on 09/20/16 10:42; Admin Dose 6.25 MG; Start 09/17/16 at 21:00 Isosorbide Mononitrate (Imdur) 30 mg DAILY PO Last administered on 09/18/16 08 :50; Admin Dose 30 MG; Start 09/17/16 at 18:30 ALCIDES RIVERA MD Sep 20, 2016 10:49
[2016-09-20] MEDS ORDERED: ASPI-664 PO (10:57)
[2016-09-20] MEDS ORDERED: PRED20 PO (10:57)
[2016-09-20] MEDS ORDERED: ASC500 PO (10:57)
[2016-09-20] MEDS ORDERED: UDROBDM PO (10:57)
[2016-09-20] MEDS ORDERED: MAGNESIUM SULFATE 2 GM/50 ML 50 ML IVPB ONE (11:00)
[2016-09-20] MEDS ORDERED: SENNA/DOCUSATE NA (8.6MG/50MG) TAB PO PRN (11:00)
[2016-09-20] MEDS ORDERED: ASPIRIN (EC) 81 MG TAB PO SCH (11:00)
[2016-09-20] MEDS ORDERED: METHYLPREDNISOLONE 125 MG INJ IV ONE (11:00)
[2016-09-20] MEDS ORDERED: GUAIFENESIN/DM 5ML CUP PO PRN (11:00)
[2016-09-20] MEDS ORDERED: ASCORBIC ACID 500 MG TAB PO SCH (11:00)
[2016-09-20] MEDS ORDERED: ONDANSETRON 4 MG INJ IV PRN (11:00)
[2016-09-20] MEDS ORDERED: IBUPROFEN 400 MG TAB PO PRN (12:00)
--- NOTE | 2016-09-20 12:49 | RADRPT ---
PROCEDURE: Lexiscan myocardial perfusion study CLINICAL INDICATION: 61 -year-old patient complaining of chest pain. TECHNIQUE: Lexiscan 0.4 mg intravenously separate acquisition gated myocardial perfusion SPECT usi ng Tc 99m Myoview 31.5 mCi intravenously at stress and Tc-99m Myoview, 10.6 mCi intravenously at res t was performed using the rest/stress sequence. Poststress Myoview SPECT images were obtained in th e supine position. COMPARISON: No prior studies. FINDINGS: Perfusion images reveal a small size mild in degree nonreversible perfusion defect in the inferior w all. Lexiscan post stress gated SPECT images demonstrate no wall motion abnormalities. IMPRESSION: 1. No evidence of stress induced ischemia. 2. No wall motion abnormalities. 3. The left ventricle ejection fraction at stress is 59%. A call report was made to Dr. Nieves at 12:45 p.m. on September 20, 2016 RPTAT: HH .Nemo Douglas MD, MD Date Time Electronically viewed and signed by .Nemo Douglas MD, on 09/20/2016 12:48 .L/
--- NOTE | 2016-09-21 07:58 | DS ---
DATE OF ADMISSION: 09/16/2016 DATE OF DISCHARGE: 09/20/2016 PRIMARY CARE PHYSICIAN: Unknown COMPUTER SERVICE TECHNICIAN: Cardiology, Dr. Vinod Beasley. DIAGNOSES ON ADMISSION: 1. Chest pain. 2. Nonadherence. 3. Chronic obstructive pulmonary disease. DIAGNOSES ON DISCHARGE: 1. Atypical chest pain. 2. Coronary artery disease. 3. Chronic obstructive pulmonary disease. 4. Acute bronchitis. HOSPITAL COURSE: A 61-year-old gentleman admitted with atypical chest pain lasting maybe 2 weeks. No evidence of pleurisy, no travel. He states he is adherent to his medications. He had a coronary evaluation and stents placed less than 6 months ago. He was ruled out for acute coronary syndrome by enzymes, EKG symptoms. Today he is undergoing stress test. If the stress test is negative, he w ill be going home to continue medical management. Additionally we have added Imdur. I am not sure if the patient takes aspirin daily but this will be restarted. Incidentally, the patient has issues with nonadherence from behavioral agitation, not sure what the real issue is. There is no evidence of self-neglect or major depression at this time. The patient does have cough, bronchitis, I will start treatment. He has underlying COPD on aerosols . I will add a short course of prednisone and supportive care. No evidence of pneumonia on chest x -ray. DISCHARGE PLAN: Home. Follow up with primary in 1 week and cardiology as before. DIET: Cardiac. ACTIVITY: No driving. ALLERGIES: IODINE, IODINE CONTAINING PRODUCTS AND PENICILLIN. BARRIERS TO DISCHARGE: None. PENDING TESTS: Final stress test result at [phone]. FUNCTIONAL STATUS: The patient is awake, alert, somewhat oriented, but chooses to answer questions versus not answering others. MEDICATIONS: 1. Albuterol MDI or Combivent as directed. 2. Lipitor 40 at bedtime. 3. Plavix 75. 4. Coila 10 every other day as needed. 5. Protonix 40. 6. Advair 100/50 one puff b.i.d. ALTERED MEDICATIONS: Coreg now 6.25 twice daily. NEW MEDICATIONS: 1. Vitamin C 500 daily. 2. Aspirin 81 daily. 3. Robitussin-DM every 4 hours as needed. 4. Imdur ER 30 daily. 5. Prednisone 60 daily for 5 days. LABORATORY: Troponin again negative x3. LFTs normal. White cell count normal. Hemoglobin and shelley tocrit of 12 and 37. Again, chest x-ray: No acute process. There are benign calcified granulomas bilaterally in the upper lobe zones. Dictated By: ALCIDES PHILLIPS/MARILU Conf#: [id number] DID#: [id number]
[2016-09-21] MEDS ORDERED: predniSONE 20 MG TAB PO SCH (09:00)
== END 2016-09-20 18:40 | disposition home or self-care (01) | DRG 313 ==
LOC: E/R 10:18 → MS4 17:23
PROVIDERS: ADMIT Internal Medicine; ATTEND Internal Medicine
DX: R07.89 Other chest pain (principal); I25.10 Atherosclerotic heart disease of native coronary artery without angina pectoris; J44.0 Chronic obstructive pulmonary disease with (acute) lower respiratory infection; I10 Essential (primary) hypertension; J20.9 Acute bronchitis, unspecified; E78.5 Hyperlipidemia, unspecified; D64.9 Anemia, unspecified; Z76.5 Malingerer [conscious simulation]; Z79.02 Long term (current) use of antithrombotics/antiplatelets; Z95.5 Presence of coronary angioplasty implant and graft; Z87.891 Personal history of nicotine dependence; Z91.19 Patient's noncompliance with other medical treatment and regimen; Z98.1 Arthrodesis status
CPT/HCPCS: 36415; 71010; 78452; 80048; 80076; 82550; 82553; 83735; 84484; 85025; 85610; 85730; 93005; 93017; 94664; 96374; A9500; A9505; J2270; J2785; J2930; J3475

== ENCOUNTER 2016-11-10 08:48 | Inpatient (IN) | payer OTHER ==
[~2016-11-10] VITALS: Ht 170.2 cm; Wt 83.0 kg
[~2016-11-10 08:48] MED LIST changes: +ADV10050 INHALATION; -ADV50050 INHALATION; +ALBU18HF INHALATION; -ALBU8.5H3 INH; +ASC500 PO; -ATOR20TA38 PO; +ATOR40TA68 PO; +CARV6.2579 PO; +ISOS30TA5 PO; +PRED20TA PO; -PROP10TA6 PO; +UDROBDM PO
[2016-11-10 09:57] LABS: ADD SCAN DIFF NO
[2016-11-10 10:02] LABS: BASOPHILS % 0.6 % (0.0-2.0); EOSINOPHILS # 0.1 10^3/ul (0.0-0.5); EOSINOPHILS % 0.8 % (0.0-7.0); HEMATOCRIT 39.8 % (42.0-52.0); HEMOGLOBIN 13.2 g/dl (14.0-18.0); LYMPHOCYTES # 2.1 10^3/ul (0.8-2.9); LYMPHOCYTES % 31.8 % (15.0-51.0); MEAN CORPUSCULAR HEMOGLOBIN 31.7 pg (29.0-33.0); MEAN CORPUSCULAR HGB CONC 33.2 g/dl (32.0-37.0); MEAN CORPUSCULAR VOLUME 95.4 fl (82.0-101.0); MEAN PLATELET VOLUME 10.9 fl (7.4-10.4); MONOCYTE # 0.7 10^3/ul (0.3-0.9); MONOCYTES % 10.6 % (0.0-11.0); NEUTROPHIL # 3.7 10^3/ul (1.6-7.5); NEUTROPHILS % 55.9 % (39.0-77.0); PLATELET COUNT 319 10^3/UL (140-415); RED BLOOD COUNT 4.17 10^6/ul (4.70-6.10); RED CELL DISTRIBUTION WIDTH 13.3 % (11.5-14.5); WHITE BLOOD COUNT 6.6 10^3/ul (4.8-10.8)
[2016-11-10 10:13] LABS: INR 0.89; PT RATIO 0.9
[2016-11-10 10:14] LABS: CHLORIDE 99 mmol/L (97-110); PARTIAL THROMBOPLASTIN TIME 28.9 Sec (25.0-35.0); POTASSIUM 3.9 mmol/L (3.5-5.1); SODIUM 141 mmol/L (135-144)
[2016-11-10 10:17] LABS: ANION GAP 18 (8-16); BLOOD UREA NITROGEN 16 mg/dl (7-20); CALCIUM 9.3 mg/dl (8.4-10.2); CARBON DIOXIDE 28 mmol/L (21-31); GLUCOSE 109 mg/dl (70-220)
--- NOTE | 2016-11-10 10:20 | RADRPT ---
PROCEDURE: XR Chest. CLINICAL INDICATION: Chest pain. TECHNIQUE: Single frontal view of the chest was obtained COMPARISON: Chest x-ray 09/16/2016 05:00 p.m. FINDINGS: The soft tissues are normal. The thoracic vertebra are poorly visualized due to underpenetration of the radiograph. The left ventricle is enlarged. The cardiomediastinal silhouette and hilar struct ures are normal. The pulmonary vasculature is normal. There are vascular calcifications in the aort ic arch. There is a 1.1 cm calcified pulmonary nodule in the right upper lobe which is unchanged co mpared to the prior study for there is a calcified 6.7 mm pulmonary nodule in the left upper lobe. T he lungs are clear. The costophrenic angles are normal. IMPRESSION: 1. Stable chest x-ray with no evidence of active cardiopulmonary disease. 2. Calcified granulomas in the right and left upper lobes are unchanged. RPTAT:AAJJ Physician Rosy Date Time Electronically viewed and signed by Physician Rosy on 11/10/2016 10:19 AGATHA/
[2016-11-10 10:32] LABS: TROPONIN-I < 0.012 ng/ml (0.00-0.12)
[2016-11-10] MEDS ORDERED: SOD CHLORIDE 0.9% 1,000 ML IV SCH (12:56)
[2016-11-10] MEDS ORDERED: NACL 0.9% 3 ML SYG IV SCH (13:00)
[2016-11-10] MEDS ORDERED: ALBUTEROL/IPRATROPIUM (NEB) 3 ML AMP HHN PRN (13:00)
[2016-11-10] MEDS ORDERED: NON-FORMULARY/PATIENT OWN MED (Albuterol/Ipratropium* (Combivent Respimat*) 1 PUFF) INHALATION SCH (13:00)
[2016-11-10] MEDS ORDERED: LORAZEPAM 2 MG INJ IV PRN (13:00)
[2016-11-10] MEDS ORDERED: NITROGLYCERIN (SL) 0.4 MG TAB SL PRN (13:00)
[2016-11-10] MEDS ORDERED: ACETAMINOPHEN 325 MG TAB PO PRN (13:00)
[2016-11-10] MEDS ORDERED: ONDANSETRON 4 MG INJ IV PRN (13:00)
[2016-11-10] MEDS: ALBUTEROL HFA 8 GM INHALER INH SCH ×2 (13:00→17:00)
--- NOTE | 2016-11-10 13:00 | ERA ---
ER Documentation Chief Complaint Date/Time DATE: 11/10/16 TIME: 12:58 Chief Complaint left side body weakness onset 0800, ambulated w/ difficulty HPI This is a 61-year-old male presents to the emergency room for evaluation of a syncopal episode. This patient states that he was at his AA meeting, and states that he fainted for 1 minute he was told. The patient states that he has had multiple fainting episodes this past week, does state that he lives by himself and was concerned. The patient states that he has been feeling generally weak but denies any weakness in one specific area of his body ROS All systems reviewed and are negative except as per history of present illness. Medications Home Meds Active Scripts Aspirin* (Aspirin* EC) 81 Mg Tablet., 81 MG PO DAILY for 30 Days, #30 3 Refills Prov:ALCIDES RIVERA MD 09/20/16 Carvedilol* (Carvedilol*) 6.25 Mg Tablet, 6.25 MG PO BID for 30 Days, TAB 2 Refills Prov:ORLIN WEINBERG 09/18/16 Isosorbide Mononitrate* (Isosorbide Mononitrate*) 30 Mg Tab.er.24h, 30 MG PO DAILY for 30 Days, 2 Refills Prov:ORLIN WEINBERG 09/18/16 Reported Medications Albuterol Sulfate* (Ventolin HFA*) 18 Gm Hfa.aer.ad, 2 PUFF INHALATION Q4H, #1 INHALER 09/16/16 Albuterol/Ipratropium* (Combivent Respimat*) 20-100 Mcg/Inh - 4 Gm Aer.w.adap, 1 PUFF INHALATION QID, #1 INHALER 09/16/16 Hydrocodone/Acetaminophen ([place] 10-325 Tablet) 1 Each Tablet, 1 EACH PO DAILY Y for PRN, TAB 09/16/16 Salmeterol Xinaf-Fluticasone* (Advair*) 100/50 Diskus Inhaler, 1 INH INHALATION BID, #1 INHALER 09/16/16 Atorvastatin* (Atorvastatin*) 40 Mg Tablet, 40 MG PO QHS, #30 TAB 09/16/16 Pantoprazole* (Protonix*) 40 Mg Tablet., 40 MG PO DAILY, TAB 07/27/16 Clopidogrel Bisulfate (Clopidogrel) 75 Mg Tablet, 75 MG PO DAILY, #30 TAB 07/27/16 Discontinued Scripts Prednisone (Prednisone) 20 Mg Tab, 60 MG PO DAILY for 5 Days, #5 TAB Prov:ALCIDES RIVERA MD 09/20/16 Guaifenesin-Dextromethorphan* (Robitussin* DM) 100MG/10MG/5ML Syrup, 10 ML PO Q4H Y for COUGH for 10 Days, #1 3 Refills Prov:ALCIDES RIVERA MD 09/20/16 Ascorbic Acid (Vitamin C) 500 Mg Tab, 500 MG PO DAILY for 10 Days, #10 TAB Prov:ALCIDES RIVERA MD 09/20/16 Allergies Allergies: Coded Allergies: Penicillins (Verified Allergy, Severe, 11/10/16) Iodine and Iodide Containing Produc (Verified Allergy, Unknown, 11/10/16) PMhx/Soc History of Surgery: Yes Anesthesia Reaction: No Hx Neurological Disorder: No Hx Respiratory Disorders: Yes (copd) Hx Cardiac Disorders: Yes (HTN ,[place] ,STENTX2) Hx Psychiatric Problems: No Hx Miscellaneous Medical Probl: Yes (SMOKING/ETOH) Hx Alcohol Use: Yes Hx Substance Use: No Hx Tobacco Use: No Physical Exam Vitals Vital Signs Date Time Temp Pulse Resp B/P Pulse Ox O2 Delivery O2 Flow Rate FiO2 11/10/16 11:51 71 20 127/80 98 Room Air 11/10/16 09:35 71 17 125/76 97 Room Air 11/10/16 08:51 98.1 84 18 136/69 99 Physical Exam Const: Frail-appearing elderly gentleman, no acute distress Head: Atraumatic Eyes: Normal Conjunctiva ENT: Normal External Ears, Nose and Mouth. Neck: Full range of motion..~ No meningismus. Resp: Clear to auscultation bilaterally Cardio: Regular rate and rhythm, no murmurs Abd: Soft, non tender, non distended. Normal bowel sounds Skin: No petechiae or rashes Back: No midline or flank tenderness Ext: No cyanosis, or edema Neur: Awake and alert to person place time, no focal neurological deficits, strength is symmetric and equal in upper lower extremity's bilaterally Psych: Normal Mood and Affect Result Diagram: 5/10/17 0930 5/10/17 0930 Results 24 hrs Laboratory Tests Test 11/10/16 09:30 White Blood Count 6.610^3/ul Red Blood Count 4.1710^6/ul Hemoglobin 13.2g/dl Hematocrit 39.8% Mean Corpuscular Volume 95.4fl Mean Corpuscular Hemoglobin 31.7pg Mean Corpuscular Hemoglobin Concent 33.2g/dl Red Cell Distribution Width 13.3% Platelet Count 74693^3/UL Mean Platelet Volume 10.9fl Neutrophils % 55.9% Lymphocytes % 31.8% Monocytes % 10.6% Eosinophils % 0.8% Basophils % 0.6% Nucleated Red Blood Cells % 0.0/100WBC Neutrophils # 3.710^3/ul Lymphocytes # 2.110^3/ul Monocytes # 0.710^3/ul Eosinophils # 0.110^3/ul Basophils # 0.010^3/ul Nucleated Red Blood Cells # 0.010^3/ul Prothrombin Time 12.0Sec Prothrombin Time Ratio 0.9 INR International Normalized Ratio 0.89 Activated Partial Thromboplast Time 28.9Sec Sodium Level 141mmol/L Potassium Level 3.9mmol/L Chloride Level 99mmol/L Carbon Dioxide Level 28mmol/L Anion Gap 18 Blood Urea Nitrogen 16mg/dl Creatinine 0.90mg/dl Glucose Level 109mg/dl Calcium Level 9.3mg/dl Troponin I < 0.012ng/ml Procedures/[facility] EKG: Rate/Rhythm: [Normal Sinus Rhythm] QRS, ST, T-waves: [No changes consistent w/ acute ischemia] Impression: [No evidence of ischemia or arrhythmia] Chest X-ray 1V Interpreted by me: Soft Tissue: No acute abnormalities Bones: No acute abnormalities Mediastinum/Cardiac Silhouette/Lungs: [No acute abnormalities] This 61-year-old male presents to the emergency room for evaluation of multiple syncopal episodes. When I evaluated this patient he was hemodynamically stable. Lab work was obtained including an EKG which is nonischemic. Troponin is negative, lab work is within normal limits and chest x-ray is clear as well. This patient does have a cardiac history with a prior stent placement. He does state that he lives by himself and has had multiple syncopal episodes at home. I do feel that this patient can be at risk if discharged home and I advised patient that he will need to stay for possible long term placement. The patient verbalized understanding and states he is okay with her plan of care. The patient will be admitted at this time under the care of her panel physician Dr. Shamir Dowling Diagnosis: Primary Impression: Syncope Additional Impressions: Acute weakness Normocytic anemia Condition: Stable NICOLE GONZALEZ DO November 10, 2016 13:00
[2016-11-10] MEDS ORDERED: HYDROCODONE/APAP (5/325) TAB PO ONE (14:30)
--- NOTE | 2016-11-10 14:44 | HP ---
DATE OF ADMISSION: 11/10/2016 CHIEF COMPLAINT: Body weakness. HISTORY OF PRESENT ILLNESS: This is a 61-year-old male with past medical history of medical noncomp liance, COPD, bronchitis, NH with cardiac stent placement in the past, hypertension, and high choles terol who apparently had a syncopal event that occurred earlier today. Apparently the patient was a t his AA meeting earlier and he fainted and was out for about 1 minute. There was no apparent tongu e biting or loss of bowel or bladder function. No incontinence. Apparently, the patient has been h aving multiple fainting episodes over the past week. The patient does live by himself and was dante rned about these symptoms as well. Denies any upper or lower GI bleeding. No chest pain or shortne ss of breath. No palpitations. No headaches or dizziness. No nausea, vomiting, no fevers or chill s. The patient was last here at our hospital from 09/16/2016 to 09/20/2016. At that time, he was a dmitted for chest pain and had a negative cardiac stress test at that time. PAST MEDICAL HISTORY: As stated above. ALLERGIES: 1. IODINE. 2. IODINE CONTAINING PRODUCTS. 3. PENICILLIN. MEDICATIONS AT HOME: Include 1. Ventolin HFA 2 puffs inhaled q. 4 hours. 2. Combivent inhaled q.i.d. 3. Plavix 75 mg daily. 4. Atorvastatin 20 mg at bedtime. 5. Coreg 6.25 mg b.i.d. 6. Imdur 30 mg daily. 7. Aspirin 81 mg daily. 8. [place] 10/325 daily p.r.n. 9. Advair 100/50 inhaled b.i.d. 10. Protonix 40 mg daily. PAST SURGICAL HISTORY: He has had cardiac stent placement x2. SOCIAL HISTORY: Positive smoking history, positive alcohol use, negative IV drug abuse. FAMILY HISTORY: Noncontributory. PHYSICAL EXAMINATION: VITAL SIGNS: T-max 98.1, pulse 71 to 84, respirations 17 to 20, blood pressure is 125/76, satting a t 97% room air. GENERAL: The patient is lying in bed, answering questions appropriately. No acute distress. HEENT: Pupils equal, round, react to light. Extraocular muscles intact. NECK: Supple, no thyromegaly. LUNGS: Clear to auscultation bilaterally. CARDIOVASCULAR: S1, S2 heard. No rubs or gallops. ABDOMEN: Soft, nontender, nondistended. Normal bowel sounds. No rebound or guarding. MUSCULOSKELETAL: No lower extremity edema bilaterally. NEUROLOGIC: No focal deficits. Gait was not assessed. LABORATORIES: CBC is normal. Basic metabolic panel is normal. Troponin is negative x1. IMAGING: He had a chest x-ray today that shows no evidence of any active cardiopulmonary disease. There are calcified granulomas in the right and left upper lobes, unchanged. ASSESSMENT AND PLAN: A 61-year-old male coming in with syncopal event x1 today and also occurred ov er the last few weeks. Differential diagnosis could be due to medicine noncompliance versus rule ou t stroke versus transient ischemic attack versus other possible cardiac arrhythmia. 1. Syncope. The patient will be admitted to telemetry floor. We will go ahead and get a 2D echoca rdiogram, also head CT, and also carotid Dopplers just to rule out any stroke or any other heart abn ormalities. Check TSH, A1c, and lipid panel and get a PT consult as well. The patient may benefit from placement as well. We will put in for criminal justice social worker consult for possible placement to SNF at least to look into that. 2. History of chronic obstructive pulmonary disease. DuoNeb p.r.n. Continue Combivent and Advair as well. 3. History of coronary artery disease with stent placement in the past. Continue aspirin and Plavi x for now. 4. High cholesterol. Check a lipid panel. Continue to monitor for now. 5. History of hypertension. Again, continue Coreg and Imdur for now. Monitor blood pressure very carefully. 6. Gastrointestinal prophylaxis. PPI. 7. Deep venous thrombosis prophylaxis. Heparin subQ. Dictated By: REGLA LOPEZ/MARILU Conf#: [id number] DID#: [id number]
[2016-11-10 15:20] LABS: ADD UMIC NO; URINE BILIRUBIN (Dip) NEGATIVE (NEGATIVE); URINE BLOOD (Dip) NEGATIVE (NEGATIVE); URINE COLOR LT. YELLOW (YELLOW); URINE GLUCOSE (Dip) NEGATIVE (NEGATIVE); URINE KETONES (Dip) NEGATIVE (NEGATIVE); URINE LEUKOCYTE ESTERASE (Dip) NEGATIVE (NEGATIVE); URINE NITRITE (Dip) NEGATIVE (NEGATIVE); URINE TOTAL PROTEIN (Dip) NEGATIVE (NEGATIVE); URINE UROBILINOGEN (Dip) 0.2 E.U./dL (0.1-1.0)
[2016-11-10 16:00] VITALS: BP 150/81; RESP 16
[2016-11-10] MEDS ORDERED: HYDROCODONE/APAP (5/325) TAB PO PRN (16:00)
[2016-11-10] MEDS ORDERED: morphine 10 MG INJ IM PRN (16:00)
[2016-11-10 16:13] VITALS: PULSE 64
[2016-11-10] MEDS: morphine 2 MG INJ IV PRN ×2 (16:29→22:34)
[2016-11-10 16:32] VITALS: Ht 170.2 cm; Wt 83.0 kg
--- NOTE | 2016-11-10 18:09 | RADRPT ---
PROCEDURE: US Carotids. CLINICAL INDICATION: Syncope TECHNIQUE: Multiple sonographic of the carotid bifurcation region and vertebral arteries were obta ined utilizing langston scale, duplex and color-flow imaging. COMPARISON: None available Technical note: The examination is limited due to lack of patient cooperation according to the sono grapher FINDINGS: RIGHT CAROTID MEASUREMENTS: PSV (cm/s)EDV (cm/s) Common Carotid [id number] Internal Carotid Artery - [id number] Internal Carotid Artery - [id number] Internal Carotid Artery - [id number] External Carotid Artery-82 Vertebral Artery-not visualized PSVR (ICA/CCA)1.0 LEFT CAROTID MEASUREMENTS: PSV (cm/s)EDV (cm/s) Common Carotid [id number] Internal Carotid Artery - [id number] Internal Carotid Artery - [id number] Internal Carotid Artery - [id number] External Carotid Artery-90 Vertebral Artery-not visualized PSVR (ICA/CCA)0.9 Because of lack of patient cooperation, the vertebral arteries are unable to be visualized bilateral ly. RPTAT:HJJR IMPRESSION: 1. Limited examination because of lack of patient cooperation but there is no evidence for hemodyna mically significant carotid artery stenosis. 2. Non-visualization of the vertebral arteries bilaterally. Physician Molly Date Time Electronically viewed and signed by Physician Molly on 11/10/2016 18:09 JR/
[2016-11-10 18:11] LABS: CREATINE KINASE 106 IU/L (23-200)
[2016-11-10 18:21] LABS: CK-MB 1.11 ng/ml (0.0-2.4)
[2016-11-10 18:26] LABS: TROPONIN-I < 0.012 ng/ml (0.00-0.12)
[2016-11-10] MEDS: ALBUTEROL 18 GM INHALER INH SCH ×2 (18:29→22:33)
[2016-11-10 20:00] VITALS: BP 98/56; RESP 18
[2016-11-10 20:03] VITALS: PULSE 78
--- NOTE | 2016-11-10 21:00 | RADRPT ---
Echocardiogram Report Patient Name: DREW VELASQUEZ Gender: Male Date: 1955 Study Date: 10-Nov-2016 Conveyor Console Operator: [facility] Location: [facility] Ref. Physician: REGLA KAUR Quality: Adequate Procedures: Transthoracic echocardiogram with complete 2D, M-Mode, and doppler examination. Indications: Chest Pain. 2D/M Mode Doppler Measurement Value Normal Ranges Measurement Value Normal Ranges LVIDd 2D 4.6 3.5 - 5.6 cm AV Peak Bucth 1.1 m/sec LVIDs 2D 3.2 2.1 - 4.1 cm AV Peak PG 5.1 mmHg LVPWd 2D 1.2 0.6 - 1.1 cm LVOT Peak Butch 0.9 m/sec IVSd 2D 1.3 0.6 - 1.1 cm LVOT Peak PG 3.2 mmHg AoR Diam 2D 3.0 2.0 - 3.7 cm MV E Peak Butch 0.9 m/sec EDV 2D 95.4 cm3 MV A Peak Butch 0.9 m/sec ESV 2D 31.6 cm3 MV E/A 1.1 LA Dimen 2D 3.3 2.3 - 4.0 cm MV Decel Time 202 msec MV Decel [place] 4 MV E/A 1.1 Findings Left Ventricle: Normal left ventricular systolic function. Normal left ventricular cavity size. Mild concentric left ventricular hypertrophy. Ejection fraction is visually estimated at 6065 %. Tissue Doppler/Mitral Doppler indices are consistent with impaired relaxation (Stage I diastolic dysfunction). Right Ventricle: Normal right ventricular size. Normal right ventricular systolic function. Left Atrium: The left atrium is normal in size. Right Atrium: The right atrium is normal in size. Mitral Valve: Normal appearance and function of the mitral valve with trace physiologic regurgitation. Aortic Valve: Aortic cusps appear mildly calcified. Trace aortic valve regurgitation. Tricuspid Valve: Tricuspid valve not well visualized. There is trace tricuspid regurgitation. Pulmonic Valve: Normal pulmonic valve appearance. There is trace pulmonic regurgitation. Pericardium: Normal pericardium with no significant pericardial effusion. Aorta: Normal aortic root. IVC: Normal size and poor respiratory collapse consistent with elevated right atrial pressure. Conclusions 1.The left ventricle is normal in size and systolic function. 2.Estimated left ventricular ejection fraction of 60-65%. 3.Mild concentric left ventricular hypertrophy. Mild left ventricular diastolic dysfunction. Electronically Signed By: Vinod Beasley 10-Nov-2016 20:59:03 -0700 Patient Name: DREW VELASQUEZ Study Date: 10-Nov-2016 [id number]
[2016-11-10] MEDS: ATORVASTATIN 40 MG TAB PO SCH (22:31)
[2016-11-10] MEDS: SALMETEROL/FLUTICASONE 100/50 INHA INH SCH (22:31)
[2016-11-10 22:51] LABS: CREATINE KINASE 101 IU/L (23-200)
[2016-11-10 23:06] LABS: CK-MB 0.93 ng/ml (0.0-2.4); TROPONIN-I < 0.012 ng/ml (0.00-0.12)
[2016-11-11] VITALS (12 sets, daily range): BP systolic 86–106; BP diastolic 51–64; PULSE 69–85; RESP 15–18
[2016-11-11] MEDS: ALBUTEROL 18 GM INHALER INH SCH ×6 (02:25→22:55)
[2016-11-11] MEDS: PANTOPRAZOLE (EC) 40 MG TAB PO SCH (06:02)
[2016-11-11] MEDS: morphine 2 MG INJ IV PRN ×3 (06:02→18:58)
[2016-11-11 08:55] LABS: ADD SCAN DIFF NO
[2016-11-11 09:14] LABS: BASOPHILS % 0.5 % (0.0-2.0); EOSINOPHILS # 0.1 10^3/ul (0.0-0.5); HEMATOCRIT 35.5 % (42.0-52.0); HEMOGLOBIN 11.4 g/dl (14.0-18.0); LYMPHOCYTES # 1.9 10^3/ul (0.8-2.9); LYMPHOCYTES % 32.5 % (15.0-51.0); MEAN CORPUSCULAR HEMOGLOBIN 31.1 pg (29.0-33.0); MEAN CORPUSCULAR HGB CONC 32.1 g/dl (32.0-37.0); MEAN CORPUSCULAR VOLUME 96.7 fl (82.0-101.0); MEAN PLATELET VOLUME 10.9 fl (7.4-10.4); MONOCYTE # 0.6 10^3/ul (0.3-0.9); MONOCYTES % 9.8 % (0.0-11.0); NEUTROPHIL # 3.3 10^3/ul (1.6-7.5); NEUTROPHILS % 55.9 % (39.0-77.0); PLATELET COUNT 293 10^3/UL (140-415); RED BLOOD COUNT 3.67 10^6/ul (4.70-6.10); RED CELL DISTRIBUTION WIDTH 13.9 % (11.5-14.5); WHITE BLOOD COUNT 5.9 10^3/ul (4.8-10.8)
[2016-11-11 09:24] LABS: CHOL/HDL RATIO 3.5 RATIO
[2016-11-11] MEDS: ISOSORBIDE MONONITRATE(SR)30 MG TAB PO SCH (09:28)
[2016-11-11] MEDS: ASPIRIN (EC) 81 MG TAB PO SCH (09:28)
[2016-11-11] MEDS: CLOPIDOGREL 75 MG TAB PO SCH (09:28)
[2016-11-11] MEDS: SALMETEROL/FLUTICASONE 100/50 INHA INH SCH ×2 (09:28→20:49)
[2016-11-11 09:38] LABS: POTASSIUM 3.8 mmol/L (3.5-5.1)
[2016-11-11 09:41] LABS: CREATININE 0.93 mg/dl (0.61-1.24)
[2016-11-11 09:42] LABS: CALCIUM 8.8 mg/dl (8.4-10.2)
--- NOTE | 2016-11-11 14:05 | PN ---
Date/Time of Note Date/Time of Note DATE: 11/11/16 TIME: 14:03 Assessment/Plan VTE Prophylaxis VTE Prophylaxis Intervention: heparin Lines/Catheters IV [facility] [place] [facility] Urinary Cath still in place: No Assessment/Plan Chief Complaint/Hosp Course ASSESSMENT AND PLAN: 61-year-old male coming in with syncopal event, occurred over the last few weeks. Differential diagnosis could be due to medicine noncompliance versus rule out stroke versus transient ischemic attack versus other possible cardiac arrhythmia. 1. Syncope - pt more alert - f/u 2D echocardiogram, also head CT, and also carotid Dopplers just to rule out any stroke or any other heart abnormalities. - f/u TSH, A1c, and lipid panel - f/u PT consult as well. - The patient may benefit from placement as well. - f/u with health social work professor consult for possible placement to SNF 2. History of chronic obstructive pulmonary disease. DuoNeb p.r.n. Continue Combivent and Advair as well. 3. History of coronary artery disease with stent placement in the past. Continue aspirin and Plavix for now. 4. High cholesterol. Check a lipid panel. Continue to monitor for now. 5. History of hypertension. Again, continue Coreg and Imdur for now. Monitor blood pressure very carefully. 6. Gastrointestinal prophylaxis. PPI. 7. Deep venous thrombosis prophylaxis. Heparin subQ. Problems: Subjective 24 Hr Interval Summary Free Text/Dictation Pt had no acute events overnight, awaiting Head CT and PT eval. Exam/Review of Systems Vital Signs Vitals Vital Signs Date Time Temp Pulse Resp B/P Pulse Ox O2 Delivery O2 Flow Rate FiO2 11/11/16 12:22 98.7 66 16 86/51 94 11/10/16 13:30 Room Air Intake and Output 11/10/16 11/10/16 11/11/16 15:00 23:00 07:00 Intake Total 200 ml Output Total 650 ml Balance -450 ml Exam GENERAL: The patient is lying in bed, answering questions appropriately. No acute distress. HEENT: Pupils equal, round, react to light. Extraocular muscles intact. NECK: Supple, no thyromegaly. LUNGS: Clear to auscultation bilaterally. CARDIOVASCULAR: S1, S2 heard. No rubs or gallops. ABDOMEN: Soft, nontender, nondistended. Normal bowel sounds. No rebound or guarding. MUSCULOSKELETAL: No lower extremity edema bilaterally. NEUROLOGIC: No focal deficits. Gait was not assessed. Results Result Diagram: 11/11/16 0749 11/11/16 0749 Results 24 hrs Laboratory Tests Test 11/10/16 14:55 11/10/16 17:35 11/10/16 22:15 11/11/16 07:44 Urine Color LT. YELLOW Urine Clarity CLEAR Urine pH 6.5 Urine Specific [place] <=1.005 L Urine Ketones NEGATIVE Urine Nitrite NEGATIVE Urine Bilirubin NEGATIVE Urine Urobilinogen 0.2 E.U./dL Urine Leukocyte Esterase NEGATIVE Urine Hemoglobin NEGATIVE Urine Glucose NEGATIVE Urine Total Protein NEGATIVE Creatine Kinase 106 101 Creatine Kinase Index 1.0 0.9 Creatinine Kinase MB (Mass) 1.11 0.93 Troponin I < 0.012 < 0.012 Hemoglobin A1c 6.3 H Triglycerides Level 79 Cholesterol Level 129 LDL Cholesterol, Calculated 77 HDL Cholesterol 36 Cholesterol/HDL Ratio 3.5 Thyroid Stimulating Hormone (TSH) Pending Test 11/11/16 07:49 White Blood Count 5.9 Red Blood Count 3.67 L Hemoglobin 11.4 L Hematocrit 35.5 L Mean Corpuscular Volume 96.7 Mean Corpuscular Hemoglobin 31.1 Mean Corpuscular Hemoglobin Concent 32.1 Red Cell Distribution Width 13.9 Platelet Count 293 Mean Platelet Volume 10.9 H Neutrophils % 55.9 Lymphocytes % 32.5 Monocytes % 9.8 Eosinophils % 1.0 Basophils % 0.5 Nucleated Red Blood Cells % 0.0 Neutrophils # 3.3 Lymphocytes # 1.9 Monocytes # 0.6 Eosinophils # 0.1 Basophils # 0.0 Nucleated Red Blood Cells # 0.0 Sodium Level 141 Potassium Level 3.8 Chloride Level 104 Carbon Dioxide Level 27 Anion Gap 14 Blood Urea Nitrogen 19 Creatinine 0.93 Glucose Level 175 Calcium Level 8.8 Medications Medications Current Medications Lorazepam (Ativan) 0.5 mg Q6H PRN IV ANXIETY; Start 11/10/16 at 13:00 Nitroglycerin (Nitroglycerin (Sl Tab) 0.4 Mg) 1 tab Q5M PRN SL ANGINA; Start at 13:00 Aspirin (Halfprin) 81 mg DAILY PO Last administered on 11/11/16t 09:28; Admin Dose 81 MG; Start 11/11/16 at 09:00 Atorvastatin Calcium (Lipitor) 40 mg QHS PO Last administered on 11/10/16 22: 31; Admin Dose 40 MG; Start 11/10/16 at 21:00 Carvedilol (Coreg) 6.25 mg BID PO Last administered on 11/11/16 09:28; Admin Dose 6.25 MG; Start 11/10/16 at 21:00 Clopidogrel Bisulfate (plaVIX) 75 mg DAILY PO Last administered on 11/11/16 09 :28; Admin Dose 75 MG; Start 11/11/16 at 09:00 Isosorbide Mononitrate (Imdur) 30 mg DAILY PO Last administered on 11/11/16 09 :28; Admin Dose 30 MG; Start 11/11/16 at 09:00 Pantoprazole (Protonix Tab) 40 mg DAILY@06 PO Last administered on 11/11/16 06 :02; Admin Dose 40 MG; Start 11/11/16 at 06:00 Salmeterol Xinafoate/ Fluticasone (Advair 100/50 Diskus) 1 inh BID INH Last administered on 11/11/16 09:28; Admin Dose 1 INH; Start 11/10/16 at 21:00 Acetaminophen/ Hydrocodone Bitart ([place] (5/325)) 1 tab Q4H PRN PO PAIN LEVEL 4 -7; Start 11/10/16 at 16:00 Morphine Sulfate (morphine) 2 mg Q6H PRN IV PAIN Last administered on 12:55; Admin Dose 2 MG; Start 11/10/16 at 16:30 Albuterol (Ventolin Hfa) 2 puff Q4H INH Last administered on 11/11/16 12:49; Admin Dose 2 PUFF; Start 11/10/16 at 18:30 REGLA KAUR November 11, 2016 14:05
[2016-11-11 14:30] LABS: THYROID STIMULATING HORMONE 1.23 MIU/L (0.465-4.680)
[2016-11-11] MEDS ORDERED: HYDROmorphONE 1 MG/ML SYG IV STA (15:36)
--- NOTE | 2016-11-11 16:53 | RADRPT ---
PROCEDURE: CT Head without. CLINICAL INDICATION: Syncope. TECHNIQUE: The study was performed utilizing a multi-slice, multidetector CT scanner. Direct spira l 1 mm axial sections were obtained through the head without the use of intravenous contrast materia l. 1 or more of the following dose reduction techniques were utilized: Automated exposure control, adjustment of the mA and/or kV according to patient's size, iterative reconstruction technique. Co tatianna and sagittal reformations were obtained. The images were reviewed on a PACS workstation. RADIATION DOSE: CTDIvol: 44.4 mGyDLP: 720.2 mGy-cm COMPARISON: 08/14/2016 FINDINGS: There is no intracranial hemorrhage, extra-axial fluid collection, mass lesion, midline shift or hyd rocephalus. There is moderate prominence of the cerebral sulci, lateral and third ventricles. Ther e is severe patchy and confluent periventricular and subcortical white matter hypodensity. There is moderate arteriosclerotic calcification of the parasellar internal carotid arteries. The langston-whit e matter differentiation is preserved. The basal cisterns are patent. The midline structures are i ntact. The orbits, calvarium and extracranial soft tissues are normal in appearance. The visualized paranasal sinuses, mastoid air cells and middle ear cavities are normally aerated. IMPRESSION: 1. No significant interval change compared to 08/14/2016. No acute intracranial abnormality. No i ntracranial hemorrhage, extra-axial fluid collection, mass lesion or hydrocephalous. 2. Stable moderate peripheral and central cerebral volume loss. 3. Stable severe patchy and confluent periventricular and subcortical white matter hypodensity, lik magda related to chronic microangiopathic changes. 4. No CT evidence of infarct at this time. If clinical concern for infarct, MRI is recommended for further evaluation. RPTAT: HGAS .Ricky Kennedy MD, Date Time Electronically viewed and signed by .Ricky Kennedy MD, MD on 11/11/2016 16:53 .S/
[2016-11-11] MEDS: ATORVASTATIN 40 MG TAB PO SCH (20:49)
[2016-11-12] VITALS (11 sets, daily range): BP systolic 85–122; BP diastolic 53–66; PULSE 68–85; RESP 15–18
[2016-11-12] MEDS: morphine 2 MG INJ IV PRN ×4 (01:19→21:39)
[2016-11-12] MEDS: ALBUTEROL 18 GM INHALER INH SCH ×6 (02:30→21:38)
[2016-11-12] MEDS: PANTOPRAZOLE (EC) 40 MG TAB PO SCH (06:06)
[2016-11-12] MEDS: CLOPIDOGREL 75 MG TAB PO SCH (09:12)
[2016-11-12] MEDS: ISOSORBIDE MONONITRATE(SR)30 MG TAB PO SCH (09:12)
[2016-11-12] MEDS: ASPIRIN (EC) 81 MG TAB PO SCH (09:12)
[2016-11-12] MEDS: SALMETEROL/FLUTICASONE 100/50 INHA INH SCH ×2 (09:42→21:37)
--- NOTE | 2016-11-12 14:07 | PN ---
Date/Time of Note Date/Time of Note DATE: 11/12/16 TIME: 14:01 Assessment/Plan VTE Prophylaxis VTE Prophylaxis Intervention: heparin Lines/Catheters IV [facility]ter Type [facility]from [facility]): [facility] Urinary Cath still in place: No Assessment/Plan Chief Complaint/Hosp Course ASSESSMENT AND PLAN: 61-year-old male coming in with syncopal event, occurred over the last few weeks. Differential diagnosis could be due to medicine noncompliance versus rule out stroke versus transient ischemic attack versus other possible cardiac arrhythmia. 1. Syncope - pt more alert - monitor - per PT consult, pt needs SNF placement - f/u with social media analyst consult for placement to SNF 2. History of chronic obstructive pulmonary disease. DuoNeb p.r.n. Continue Combivent and Advair as well. 3. History of coronary artery disease with stent placement in the past. Continue aspirin and Plavix for now. 4. High cholesterol. Check a lipid panel. Continue to monitor for now. 5. History of hypertension. Again, continue Coreg and Imdur for now. Monitor blood pressure very carefully. 6. Gastrointestinal prophylaxis. PPI. 7. Deep venous thrombosis prophylaxis. Heparin subQ. Problems: Subjective 24 Hr Interval Summary Free Text/Dictation Pt had Head CT performed yesterday. No acute events overnight. Exam/Review of Systems Vital Signs Vitals Vital Signs Date Time Temp Pulse Resp B/P Pulse Ox O2 Delivery O2 Flow Rate FiO2 11/12/16 12:07 98.0 75 17 99/53 96 11/10/16 13:30 Room Air Intake and Output 11/11/16 11/11/16 11/12/16 15:00 23:00 07:00 Intake Total 300 ml 180 ml Output Total 320 ml 400 ml Balance -20 ml -220 ml Exam GENERAL: The patient is lying in bed, answering questions appropriately. No acute distress. HEENT: Pupils equal, round, react to light. Extraocular muscles intact. NECK: Supple, no thyromegaly. LUNGS: Clear to auscultation bilaterally. CARDIOVASCULAR: S1, S2 heard. No rubs or gallops. ABDOMEN: Soft, nontender, nondistended. Normal bowel sounds. No rebound or guarding. MUSCULOSKELETAL: No lower extremity edema bilaterally. NEUROLOGIC: No focal deficits. Gait was not assessed. Results Result Diagram: 11/11/16 0749 11/11/16 0749 Medications Medications Current Medications Lorazepam (Ativan) 0.5 mg Q6H PRN IV ANXIETY; Start 11/10/16 at 13:00 Nitroglycerin (Nitroglycerin (Sl Tab) 0.4 Mg) 1 tab Q5M PRN SL ANGINA; Start at 13:00 Aspirin (Halfprin) 81 mg DAILY PO Last administered on 11/12/16 09:12; Admin Dose 81 MG; Start 11/11/16 at 09:00 Atorvastatin Calcium (Lipitor) 40 mg QHS PO Last administered on 11/11/16 20: 49; Admin Dose 40 MG; Start 11/10/16 at 21:00 Carvedilol (Coreg) 6.25 mg BID PO Last administered on 11/12/16 09:12; Admin Dose 6.25 MG; Start 11/10/16 at 21:00 Clopidogrel Bisulfate (plaVIX) 75 mg DAILY PO Last administered on 11/12/16 09 :12; Admin Dose 75 MG; Start 11/11/16 at 09:00 Isosorbide Mononitrate (Imdur) 30 mg DAILY PO Last administered on 11/12/16 09 :12; Admin Dose 30 MG; Start 11/11/16 at 09:00 Pantoprazole (Protonix Tab) 40 mg DAILY@06 PO Last administered on 11/12/16 06 :06; Admin Dose 40 MG; Start 11/11/16 at 06:00 Salmeterol Xinafoate/ Fluticasone (Advair 100/50 Diskus) 1 inh BID INH Last administered on 11/12/16 09:42; Admin Dose 1 INH; Start 11/10/16 at 21:00 Acetaminophen/ Hydrocodone Bitart ([place] (5/325)) 1 tab Q4H PRN PO PAIN LEVEL 4 -7; Start 11/10/16 at 16:00 Morphine Sulfate (morphine) 2 mg Q6H PRN IV PAIN Last administered on 09:09; Admin Dose 2 MG; Start 11/10/16 at 16:30 Albuterol (Ventolin Hfa) 2 puff Q4H INH Last administered on 11/12/16 06:07; Admin Dose 2 PUFF; Start 11/10/16 at 18:30 Procedures Procedures 2DECHO: Conclusions 1. The left ventricle is normal in size and systolic function. 2. Estimated left ventricular ejection fraction of 60-65%. 3. Mild concentric left ventricular hypertrophy. Mild left ventricular diastolic dysfunction. REGLA KAUR. November 12, 2016 14:07
[2016-11-12 14:51] LABS: ADD SCAN DIFF NO
[2016-11-12 14:52] LABS: BASOPHILS % 0.4 % (0.0-2.0); EOSINOPHILS # 0.1 10^3/ul (0.0-0.5); EOSINOPHILS % 0.7 % (0.0-7.0); HEMATOCRIT 33.7 % (42.0-52.0); HEMOGLOBIN 11.4 g/dl (14.0-18.0); LYMPHOCYTES # 1.6 10^3/ul (0.8-2.9); LYMPHOCYTES % 19.7 % (15.0-51.0); MEAN CORPUSCULAR HEMOGLOBIN 31.9 pg (29.0-33.0); MEAN CORPUSCULAR HGB CONC 33.8 g/dl (32.0-37.0); MEAN CORPUSCULAR VOLUME 94.4 fl (82.0-101.0); MEAN PLATELET VOLUME 10.1 fl (7.4-10.4); MONOCYTE # 0.8 10^3/ul (0.3-0.9); MONOCYTES % 9.3 % (0.0-11.0); NEUTROPHIL # 5.7 10^3/ul (1.6-7.5); NEUTROPHILS % 69.5 % (39.0-77.0); PLATELET COUNT 283 10^3/UL (140-415); RED BLOOD COUNT 3.57 10^6/ul (4.70-6.10); RED CELL DISTRIBUTION WIDTH 13.4 % (11.5-14.5); WHITE BLOOD COUNT 8.2 10^3/ul (4.8-10.8)
[2016-11-12 15:08] LABS: POTASSIUM 3.7 mmol/L (3.5-5.1)
[2016-11-12 15:10] LABS: CREATININE 0.87 mg/dl (0.61-1.24)
[2016-11-12 15:11] LABS: CALCIUM 8.7 mg/dl (8.4-10.2)
[2016-11-12] MEDS: ATORVASTATIN 40 MG TAB PO SCH (21:38)
[2016-11-13] VITALS (11 sets, daily range): BP systolic 86–133; BP diastolic 53–76; PULSE 56–72; RESP 16–20
[2016-11-13] MEDS: ALBUTEROL 18 GM INHALER INH SCH ×6 (02:30→21:47)
[2016-11-13] MEDS: morphine 2 MG INJ IV PRN ×4 (03:38→21:43)
[2016-11-13] MEDS: PANTOPRAZOLE (EC) 40 MG TAB PO SCH (05:47)
[2016-11-13] MEDS: ASPIRIN (EC) 81 MG TAB PO SCH (09:46)
[2016-11-13] MEDS: CLOPIDOGREL 75 MG TAB PO SCH (09:46)
[2016-11-13] MEDS: ISOSORBIDE MONONITRATE(SR)30 MG TAB PO SCH (09:47)
[2016-11-13] MEDS: SALMETEROL/FLUTICASONE 100/50 INHA INH SCH ×2 (09:47→21:47)
[2016-11-13 10:18] LABS: ADD SCAN DIFF NO
[2016-11-13 10:25] LABS: BASOPHILS % 0.5 % (0.0-2.0); EOSINOPHILS # 0.1 10^3/ul (0.0-0.5); EOSINOPHILS % 1.8 % (0.0-7.0); HEMATOCRIT 35.7 % (42.0-52.0); LYMPHOCYTES # 1.8 10^3/ul (0.8-2.9); LYMPHOCYTES % 30.4 % (15.0-51.0); MEAN CORPUSCULAR HEMOGLOBIN 31.7 pg (29.0-33.0); MEAN CORPUSCULAR HGB CONC 33.6 g/dl (32.0-37.0); MEAN CORPUSCULAR VOLUME 94.4 fl (82.0-101.0); MEAN PLATELET VOLUME 10.3 fl (7.4-10.4); MONOCYTE # 0.7 10^3/ul (0.3-0.9); MONOCYTES % 11.2 % (0.0-11.0); NEUTROPHIL # 3.3 10^3/ul (1.6-7.5); NEUTROPHILS % 55.8 % (39.0-77.0); PLATELET COUNT 284 10^3/UL (140-415); RED BLOOD COUNT 3.78 10^6/ul (4.70-6.10); RED CELL DISTRIBUTION WIDTH 13.2 % (11.5-14.5)
[2016-11-13 10:42] LABS: CREATININE 0.88 mg/dl (0.61-1.24); POTASSIUM 3.8 mmol/L (3.5-5.1)
--- NOTE | 2016-11-13 13:57 | PN ---
Date/Time of Note Date/Time of Note DATE: 11/13/16 TIME: 13:56 Assessment/Plan VTE Prophylaxis VTE Prophylaxis Intervention: heparin Lines/Catheters IV C[facility]ter Type (from [facility]): [facility] Urinary Cath still in place: No Assessment/Plan Chief Complaint/Hosp Course ASSESSMENT AND PLAN: 61-year-old male coming in with syncopal event, occurred over the last few weeks. Differential diagnosis could be due to medicine noncompliance versus rule out stroke versus transient ischemic attack versus other possible cardiac arrhythmia. 1. Syncope - pt more alert - monitor - per PT consult, pt needs SNF placement - f/u with social research assistant consult for placement to SNF 2. History of chronic obstructive pulmonary disease. DuoNeb p.r.n. Continue Combivent and Advair as well. 3. History of coronary artery disease with stent placement in the past. Continue aspirin and Plavix for now. 4. High cholesterol. Check a lipid panel. Continue to monitor for now. 5. History of hypertension. Again, continue Coreg and Imdur for now. Monitor blood pressure very carefully. 6. Gastrointestinal prophylaxis. PPI. 7. Deep venous thrombosis prophylaxis. Heparin subQ. Problems: Subjective 24 Hr Interval Summary Free Text/Dictation No acute events overnight. Exam/Review of Systems Vital Signs Vitals Vital Signs Date Time Temp Pulse Resp B/P Pulse Ox O2 Delivery O2 Flow Rate FiO2 11/13/16 12:57 69 11/13/16 12:06 98.6 16 86/53 94 11/10/16 13:30 Room Air Intake and Output 11/12/16 11/12/16 11/13/16 15:00 23:00 07:00 Intake Total 850 ml 650 ml Output Total 450 ml 625 ml Balance 400 ml 25 ml Exam GENERAL: The patient is lying in bed, answering questions appropriately. No acute distress. HEENT: Pupils equal, round, react to light. Extraocular muscles intact. NECK: Supple, no thyromegaly. LUNGS: Clear to auscultation bilaterally. CARDIOVASCULAR: S1, S2 heard. No rubs or gallops. ABDOMEN: Soft, nontender, nondistended. Normal bowel sounds. No rebound or guarding. MUSCULOSKELETAL: No lower extremity edema bilaterally. NEUROLOGIC: No focal deficits. Gait was not assessed. Results Result Diagram: 11/13/16 0950 11/13/16 0950 Results 24 hrs Laboratory Tests Test 11/12/16 14:40 11/13/16 09:50 White Blood Count 8.2 # 6.0 # Red Blood Count 3.57 L 3.78 L Hemoglobin 11.4 L 12.0 L Hematocrit 33.7 L 35.7 L Mean Corpuscular Volume 94.4 94.4 Mean Corpuscular Hemoglobin 31.9 31.7 Mean Corpuscular Hemoglobin Concent 33.8 33.6 Red Cell Distribution Width 13.4 13.2 Platelet Count 283 284 Mean Platelet Volume 10.1 10.3 Neutrophils % 69.5 55.8 Lymphocytes % 19.7 30.4 Monocytes % 9.3 11.2 H Eosinophils % 0.7 1.8 Basophils % 0.4 0.5 Nucleated Red Blood Cells % 0.0 0.0 Neutrophils # 5.7 3.3 Lymphocytes # 1.6 1.8 Monocytes # 0.8 0.7 Eosinophils # 0.1 0.1 Basophils # 0.0 0.0 Nucleated Red Blood Cells # 0.0 0.0 Sodium Level 139 137 Potassium Level 3.7 3.8 Chloride Level 101 105 Carbon Dioxide Level 29 27 Anion Gap 13 9 Blood Urea Nitrogen 20 20 Creatinine 0.87 0.88 Glucose Level 98 # 157 Calcium Level 8.7 9.0 Medications Medications Current Medications Lorazepam (Ativan) 0.5 mg Q6H PRN IV ANXIETY; Start 11/10/16 at 13:00 Nitroglycerin (Nitroglycerin (Sl Tab) 0.4 Mg) 1 tab Q5M PRN SL ANGINA; Start at 13:00 Aspirin (Halfprin) 81 mg DAILY PO Last administered on 11/13/16 09:46; Admin Dose 81 MG; Start 11/11/16 at 09:00 Atorvastatin Calcium (Lipitor) 40 mg QHS PO Last administered on 11/12/16 21: 38; Admin Dose 40 MG; Start 11/10/16 at 21:00 Carvedilol (Coreg) 6.25 mg BID PO Last administered on 11/13/16 09:46; Admin Dose 6.25 MG; Start 11/10/16 at 21:00 Clopidogrel Bisulfate (plaVIX) 75 mg DAILY PO Last administered on 11/13/16 09 :46; Admin Dose 75 MG; Start 11/11/16 at 09:00 Isosorbide Mononitrate (Imdur) 30 mg DAILY PO Last administered on 11/13/16 09 :47; Admin Dose 30 MG; Start 11/11/16 at 09:00 Pantoprazole (Protonix Tab) 40 mg DAILY@06 PO Last administered on 11/13/16 05 :47; Admin Dose 40 MG; Start 11/11/16 at 06:00 Salmeterol Xinafoate/ Fluticasone (Advair 100/50 Diskus) 1 inh BID INH Last administered on 11/13/16 09:47; Admin Dose 1 INH; Start 11/10/16 at 21:00 Acetaminophen/ Hydrocodone Bitart ([place] (5/325)) 1 tab Q4H PRN PO PAIN LEVEL 4 -7; Start 11/10/16 at 16:00 Morphine Sulfate (morphine) 2 mg Q6H PRN IV PAIN Last administered on 09:59; Admin Dose 2 MG; Start 11/10/16 at 16:30 Albuterol (Ventolin Hfa) 2 puff Q4H INH Last administered on 11/13/16 05:47; Admin Dose 2 PUFF; Start 11/10/16 at 18:30 REGLA KAUR November 13, 2016 13:57
[2016-11-13] MEDS: ATORVASTATIN 40 MG TAB PO SCH (21:46)
[2016-11-14] VITALS (13 sets, daily range): BP systolic 82–116; BP diastolic 51–68; PULSE 52–68; RESP 16–18
[2016-11-14] MEDS: morphine 2 MG INJ IV PRN ×4 (04:04→22:14)
[2016-11-14] MEDS: ALBUTEROL 18 GM INHALER INH SCH ×6 (04:05→21:31)
[2016-11-14] MEDS: PANTOPRAZOLE (EC) 40 MG TAB PO SCH (05:42)
[2016-11-14] MEDS: ASPIRIN (EC) 81 MG TAB PO SCH (08:45)
[2016-11-14] MEDS: CLOPIDOGREL 75 MG TAB PO SCH (08:45)
[2016-11-14] MEDS: SALMETEROL/FLUTICASONE 100/50 INHA INH SCH ×2 (08:45→21:31)
[2016-11-14] MEDS: ISOSORBIDE MONONITRATE(SR)30 MG TAB PO SCH (08:46)
[2016-11-14 09:13] LABS: ADD SCAN DIFF NO
[2016-11-14 09:15] LABS: BASOPHILS % 0.7 % (0.0-2.0); EOSINOPHILS # 0.1 10^3/ul (0.0-0.5); EOSINOPHILS % 1.6 % (0.0-7.0); HEMOGLOBIN 12.9 g/dl (14.0-18.0); LYMPHOCYTES # 1.9 10^3/ul (0.8-2.9); LYMPHOCYTES % 30.2 % (15.0-51.0); MEAN CORPUSCULAR HEMOGLOBIN 31.1 pg (29.0-33.0); MEAN CORPUSCULAR HGB CONC 33.1 g/dl (32.0-37.0); MEAN PLATELET VOLUME 10.2 fl (7.4-10.4); MONOCYTE # 0.7 10^3/ul (0.3-0.9); MONOCYTES % 10.6 % (0.0-11.0); NEUTROPHIL # 3.5 10^3/ul (1.6-7.5); NEUTROPHILS % 56.7 % (39.0-77.0); PLATELET COUNT 290 10^3/UL (140-415); RED BLOOD COUNT 4.15 10^6/ul (4.70-6.10); RED CELL DISTRIBUTION WIDTH 13.2 % (11.5-14.5); WHITE BLOOD COUNT 6.2 10^3/ul (4.8-10.8)
[2016-11-14 09:38] LABS: CALCIUM 9.4 mg/dl (8.4-10.2); CREATININE 0.89 mg/dl (0.61-1.24); POTASSIUM 4.3 mmol/L (3.5-5.1)
--- NOTE | 2016-11-14 14:31 | PN ---
Date/Time of Note Date/Time of Note DATE: 11/14/16 TIME: 14:30 Assessment/Plan VTE Prophylaxis VTE Prophylaxis Intervention: heparin Lines/Catheters IV [facility]ter Type (from [facility]): [facility] Urinary Cath still in place: No Assessment/Plan Chief Complaint/Hosp Course ASSESSMENT AND PLAN: 61-year-old male coming in with syncopal event, occurred over the last few weeks. Differential diagnosis could be due to medicine noncompliance versus rule out stroke versus transient ischemic attack versus other possible cardiac arrhythmia. 1. Syncope - pt more alert - monitor - per PT consult, pt needs SNF placement - f/u with social welfare clerk consult for placement to SNF 2. History of chronic obstructive pulmonary disease. DuoNeb p.r.n. Continue Combivent and Advair as well. 3. History of coronary artery disease with stent placement in the past. Continue aspirin and Plavix for now. 4. High cholesterol - Continue to monitor for now. 5. History of hypertension. Again, continue Coreg and Imdur for now. Monitor blood pressure very carefully. 6. Gastrointestinal prophylaxis. PPI. 7. Deep venous thrombosis prophylaxis. Heparin subQ. Problems: Subjective 24 Hr Interval Summary Free Text/Dictation No acute events overnight. Exam/Review of Systems Vital Signs Vitals Vital Signs Date Time Temp Pulse Resp B/P Pulse Ox O2 Delivery O2 Flow Rate FiO2 11/14/16 12:03 52 11/14/16 11:52 98.3 16 92/51 95 11/13/16 22:00 Room Air Intake and Output 11/13/16 11/13/16 11/14/16 15:00 23:00 07:00 Intake Total 250 ml 250 ml Output Total 500 ml 400 ml Balance -250 ml -150 ml Exam GENERAL: The patient is lying in bed, answering questions appropriately. No acute distress. HEENT: Pupils equal, round, react to light. Extraocular muscles intact. NECK: Supple, no thyromegaly. LUNGS: Clear to auscultation bilaterally. CARDIOVASCULAR: S1, S2 heard. No rubs or gallops. ABDOMEN: Soft, nontender, nondistended. Normal bowel sounds. No rebound or guarding. MUSCULOSKELETAL: No lower extremity edema bilaterally. NEUROLOGIC: No focal deficits. Gait was not assessed. Results Result Diagram: 11/14/16 0900 11/14/16 0900 Results 24 hrs Laboratory Tests Test 11/14/16 09:00 White Blood Count 6.2 Red Blood Count 4.15 L Hemoglobin 12.9 L Hematocrit 39.0 L Mean Corpuscular Volume 94.0 Mean Corpuscular Hemoglobin 31.1 Mean Corpuscular Hemoglobin Concent 33.1 Red Cell Distribution Width 13.2 Platelet Count 290 Mean Platelet Volume 10.2 Neutrophils % 56.7 Lymphocytes % 30.2 Monocytes % 10.6 Eosinophils % 1.6 Basophils % 0.7 Nucleated Red Blood Cells % 0.0 Neutrophils # 3.5 Lymphocytes # 1.9 Monocytes # 0.7 Eosinophils # 0.1 Basophils # 0.0 Nucleated Red Blood Cells # 0.0 Sodium Level 138 Potassium Level 4.3 Chloride Level 105 Carbon Dioxide Level 27 Anion Gap 10 Blood Urea Nitrogen 20 Creatinine 0.89 Glucose Level 115 # Calcium Level 9.4 Medications Medications Current Medications Lorazepam (Ativan) 0.5 mg Q6H PRN IV ANXIETY; Start 11/10/16 at 13:00 Nitroglycerin (Nitroglycerin (Sl Tab) 0.4 Mg) 1 tab Q5M PRN SL ANGINA; Start at 13:00 Aspirin (Halfprin) 81 mg DAILY PO Last administered on 11/14/16 08:45; Admin Dose 81 MG; Start 11/11/16 at 09:00 Atorvastatin Calcium (Lipitor) 40 mg QHS PO Last administered on 11/13/16 21: 46; Admin Dose 40 MG; Start 11/10/16 at 21:00 Carvedilol (Coreg) 6.25 mg BID PO Last administered on 11/14/16 08:46; Admin Dose 6.25 MG; Start 11/10/16 at 21:00 Clopidogrel Bisulfate (plaVIX) 75 mg DAILY PO Last administered on 11/14/16 08 :45; Admin Dose 75 MG; Start 11/11/16 at 09:00 Isosorbide Mononitrate (Imdur) 30 mg DAILY PO Last administered on 11/14/16 08 :46; Admin Dose 30 MG; Start 11/11/16 at 09:00 Pantoprazole (Protonix Tab) 40 mg DAILY@06 PO Last administered on 11/14/16 05 :42; Admin Dose 40 MG; Start 11/11/16 at 06:00 Salmeterol Xinafoate/ Fluticasone (Advair 100/50 Diskus) 1 inh BID INH Last administered on 11/14/16 08:45; Admin Dose 1 INH; Start 11/10/16 at 21:00 Acetaminophen/ Hydrocodone Bitart ([place] (5/325)) 1 tab Q4H PRN PO PAIN LEVEL 4 -7; Start 11/10/16 at 16:00 Morphine Sulfate (morphine) 2 mg Q6H PRN IV PAIN Last administered on 10:31; Admin Dose 2 MG; Start 11/10/16 at 16:30 Albuterol (Ventolin Hfa) 2 puff Q4H INH Last administered on 11/14/16 05:42; Admin Dose 2 PUFF; Start 11/10/16 at 18:30 REGLA KAUR November 14, 2016 14:31
[2016-11-14] MEDS: ATORVASTATIN 40 MG TAB PO SCH (21:31)
[2016-11-15] VITALS (12 sets, daily range): BP systolic 82–126; BP diastolic 46–81; PULSE 45–63; RESP 16–20
[2016-11-15] MEDS: ALBUTEROL 18 GM INHALER INH SCH ×6 (02:32→22:07)
[2016-11-15] MEDS: morphine 2 MG INJ IV PRN ×3 (03:51→18:14)
[2016-11-15 08:19] LABS: ADD SCAN DIFF NO
[2016-11-15 08:29] LABS: BASOPHILS % 0.7 % (0.0-2.0); EOSINOPHILS # 0.1 10^3/ul (0.0-0.5); EOSINOPHILS % 1.7 % (0.0-7.0); HEMATOCRIT 38.2 % (42.0-52.0); HEMOGLOBIN 12.6 g/dl (14.0-18.0); LYMPHOCYTES % 35.2 % (15.0-51.0); MEAN CORPUSCULAR HEMOGLOBIN 31.2 pg (29.0-33.0); MEAN CORPUSCULAR VOLUME 94.6 fl (82.0-101.0); MEAN PLATELET VOLUME 10.5 fl (7.4-10.4); MONOCYTE # 0.7 10^3/ul (0.3-0.9); NEUTROPHIL # 2.9 10^3/ul (1.6-7.5); NEUTROPHILS % 49.9 % (39.0-77.0); PLATELET COUNT 290 10^3/UL (140-415); RED BLOOD COUNT 4.04 10^6/ul (4.70-6.10); RED CELL DISTRIBUTION WIDTH 13.2 % (11.5-14.5); WHITE BLOOD COUNT 5.7 10^3/ul (4.8-10.8)
[2016-11-15 08:46] LABS: POTASSIUM 3.9 mmol/L (3.5-5.1)
[2016-11-15 08:49] LABS: CALCIUM 8.9 mg/dl (8.4-10.2); CREATININE 0.88 mg/dl (0.61-1.24)
[2016-11-15] MEDS: SALMETEROL/FLUTICASONE 100/50 INHA INH SCH ×2 (09:00→22:07)
--- NOTE | 2016-11-15 11:53 | PN ---
Date/Time of Note Date/Time of Note DATE: 11/15/16 TIME: 11:50 Assessment/Plan VTE Prophylaxis VTE Prophylaxis Intervention: heparin Lines/Catheters IV [facility]from [facility]ine Lock Urinary Cath still in place: No Assessment/Plan Assessment/Plan 1. Syncope, unremarkable CT head, carotidUS, echocardiography, no recurrence 2. Chronic obstructive pulmonary disease. DuoNeb p.r.n. Continue Combivent and Advair as well. 3. Coronary artery disease with stent placement in the past. Continue aspirin and Plavix for now. 4. High cholesterol - Continue to monitor for now. 5. Hypertension. Again, continue Coreg and Imdur for now. Monitor blood pressure very carefully. 6. Gastrointestinal prophylaxis. PPI. 7. Deep venous thrombosis prophylaxis. Heparin subQ. 8. Awaiting for SNF placement Subjective 24 Hr Interval Summary Free Text/Dictation no dizziness, no shortness of breath Exam/Review of Systems Vital Signs Vitals Vital Signs Date Time Temp Pulse Resp B/P Pulse Ox O2 Delivery O2 Flow Rate FiO2 11/15/16 09:00 98.5 65 16 126/81 92 11/13/16 22:00 Room Air Intake and Output 11/14/16 11/14/16 11/15/16 15:00 23:00 07:00 Intake Total 600 ml 300 ml Output Total 300 ml Balance 300 ml 300 ml Exam Constitutional: alert, oriented, well developed Psych: nl mood/affect, no complaints Head: atraumatic Eyes: EOMI, PERRL, nl conjunctiva, nl lids ENMT: mucosa pink and moist, nl external ears & nose, nl lips & teeth, nl nasal mucosa & septum Neck: non-tender, supple Respiratory: wheezing (scanty) Cardiovascular: nl pulses, regular rate and rhythm, No S3, No S4, No bruits, No diastolic murmur, No edema, No gallop, No irregular rhythm, No jugular venous distention (JVD), No murmurs/extra sounds, No other, No rub, No systolic murmur Gastrointestinal: nl liver, spleen, non-tender, soft, No ascites, No bowel sounds, No distended, No firm, No hepatomegaly, No mass , No other, No rebound or guarding, No splenomegaly, No surgical scars, No tender Musculoskeletal: nl extremities to inspection, No joint tenderness, No muscle tone, No muscle weakness, No nl gait and stance, No other, No range of motion, No spine non-tender, No swelling Extremities: normal pulses, No calf tenderness, No clubbing, No cyanosis, No edema, No other, No palpable cord, No pitting pedal edema, No tenderness Neurological: [employer] II-XII intact, nl mental status, nl speech, nl strength Skin: nl turgor Lymph: nl lymph nodes Results Result Diagram: 11/15/16 0800 11/15/16 0800 Results 24 hrs Laboratory Tests Test 11/15/16 08:00 White Blood Count 5.7 Red Blood Count 4.04 L Hemoglobin 12.6 L Hematocrit 38.2 L Mean Corpuscular Volume 94.6 Mean Corpuscular Hemoglobin 31.2 Mean Corpuscular Hemoglobin Concent 33.0 Red Cell Distribution Width 13.2 Platelet Count 290 Mean Platelet Volume 10.5 H Neutrophils % 49.9 Lymphocytes % 35.2 Monocytes % 12.0 H Eosinophils % 1.7 Basophils % 0.7 Nucleated Red Blood Cells % 0.0 Neutrophils # 2.9 Lymphocytes # 2.0 Monocytes # 0.7 Eosinophils # 0.1 Basophils # 0.0 Nucleated Red Blood Cells # 0.0 Sodium Level 140 Potassium Level 3.9 Chloride Level 103 Carbon Dioxide Level 27 Anion Gap 14 Blood Urea Nitrogen 21 H Creatinine 0.88 Glucose Level 99 Calcium Level 8.9 Medications Medications Current Medications Lorazepam (Ativan) 0.5 mg Q6H PRN IV ANXIETY; Start 11/10/16 at 13:00 Nitroglycerin (Nitroglycerin (Sl Tab) 0.4 Mg) 1 tab Q5M PRN SL ANGINA; Start at 13:00 Aspirin (Halfprin) 81 mg DAILY PO Last administered on 11/14/16 08:45; Admin Dose 81 MG; Start 11/11/16 at 09:00 Atorvastatin Calcium (Lipitor) 40 mg QHS PO Last administered on 11/14/16 21: 31; Admin Dose 40 MG; Start 11/10/16 at 21:00 Carvedilol (Coreg) 6.25 mg BID PO Last administered on 11/14/16 08:46; Admin Dose 6.25 MG; Start 11/10/16 at 21:00 Clopidogrel Bisulfate (plaVIX) 75 mg DAILY PO Last administered on 11/14/16 08 :45; Admin Dose 75 MG; Start 11/11/16 at 09:00 Isosorbide Mononitrate (Imdur) 30 mg DAILY PO Last administered on 11/14/16 08 :46; Admin Dose 30 MG; Start 11/11/16 at 09:00 Pantoprazole (Protonix Tab) 40 mg DAILY@06 PO Last administered on 11/14/16 05 :42; Admin Dose 40 MG; Start 11/11/16 at 06:00 Salmeterol Xinafoate/ Fluticasone (Advair 100/50 Diskus) 1 inh BID INH Last administered on 11/14/16 21:31; Admin Dose 1 INH; Start 11/10/16 at 21:00 Acetaminophen/ Hydrocodone Bitart ([place] (5/325)) 1 tab Q4H PRN PO PAIN LEVEL 4 -7; Start 11/10/16 at 16:00 Morphine Sulfate (morphine) 2 mg Q6H PRN IV PAIN Last administered on 03:51; Admin Dose 2 MG; Start 11/10/16 at 16:30 Albuterol (Ventolin Hfa) 2 puff Q4H INH Last administered on 11/15/16 02:32; Admin Dose 2 PUFF; Start 11/10/16 at 18:30 VENTURA DARDEN MD November 15, 2016 11:53
[2016-11-15] MEDS: ISOSORBIDE MONONITRATE(SR)30 MG TAB PO SCH (12:00)
[2016-11-15] MEDS: ASPIRIN (EC) 81 MG TAB PO SCH (12:00)
[2016-11-15] MEDS: PANTOPRAZOLE (EC) 40 MG TAB PO SCH (12:00)
[2016-11-15] MEDS: CLOPIDOGREL 75 MG TAB PO SCH (12:00)
[2016-11-15] MEDS: ATORVASTATIN 40 MG TAB PO SCH (22:06)
[2016-11-16] VITALS (10 sets, daily range): BP systolic 92–105; BP diastolic 51–63; PULSE 52–81; RESP 16–20
[2016-11-16] MEDS: ALBUTEROL 18 GM INHALER INH SCH ×6 (01:37→22:13)
[2016-11-16] MEDS: morphine 2 MG INJ IV PRN ×3 (01:38→22:13)
[2016-11-16] MEDS: PANTOPRAZOLE (EC) 40 MG TAB PO SCH (06:23)
[2016-11-16] MEDS: SALMETEROL/FLUTICASONE 100/50 INHA INH SCH ×2 (09:55→20:48)
[2016-11-16] MEDS: ISOSORBIDE MONONITRATE(SR)30 MG TAB PO SCH (09:57)
[2016-11-16] MEDS: CLOPIDOGREL 75 MG TAB PO SCH (09:57)
[2016-11-16] MEDS: ASPIRIN (EC) 81 MG TAB PO SCH (09:57)
[2016-11-16 10:29] LABS: ADD SCAN DIFF NO
[2016-11-16 10:36] LABS: BASOPHILS % 0.4 % (0.0-2.0); EOSINOPHILS # 0.1 10^3/ul (0.0-0.5); EOSINOPHILS % 1.7 % (0.0-7.0); HEMATOCRIT 37.4 % (42.0-52.0); HEMOGLOBIN 12.8 g/dl (14.0-18.0); LYMPHOCYTES # 1.7 10^3/ul (0.8-2.9); LYMPHOCYTES % 32.2 % (15.0-51.0); MEAN CORPUSCULAR HEMOGLOBIN 32.1 pg (29.0-33.0); MEAN CORPUSCULAR HGB CONC 34.2 g/dl (32.0-37.0); MEAN CORPUSCULAR VOLUME 93.7 fl (82.0-101.0); MEAN PLATELET VOLUME 10.6 fl (7.4-10.4); MONOCYTE # 0.6 10^3/ul (0.3-0.9); MONOCYTES % 10.8 % (0.0-11.0); NEUTROPHIL # 2.9 10^3/ul (1.6-7.5); NEUTROPHILS % 54.5 % (39.0-77.0); PLATELET COUNT 294 10^3/UL (140-415); RED BLOOD COUNT 3.99 10^6/ul (4.70-6.10); WHITE BLOOD COUNT 5.4 10^3/ul (4.8-10.8)
[2016-11-16 11:08] LABS: CREATININE 0.96 mg/dl (0.61-1.24)
--- NOTE | 2016-11-16 13:54 | PN ---
Date/Time of Note Date/Time of Note DATE: 11/16/16 TIME: 13:52 Assessment/Plan VTE Prophylaxis VTE Prophylaxis Intervention: heparin Lines/Catheters IV C[facility] Type [facility]from [facility] Saline Lock Urinary Cath still in place: No Assessment/Plan Assessment/Plan 1. Syncope, unremarkable CT head, carotidUS, echocardiography, no recurrence 2. Chronic obstructive pulmonary disease. DuoNeb p.r.n. Continue Combivent and Advair as well. 3. Coronary artery disease with stent placement in the past. Continue aspirin and Plavix for now. 4. High cholesterol - Continue to monitor for now. 5. Hypertension. Again, continue Coreg and Imdur for now. Monitor blood pressure very carefully. 6. Gastrointestinal prophylaxis. PPI. 7. Deep venous thrombosis prophylaxis. Heparin subQ. 8. Awaiting for SNF placement Subjective 24 Hr Interval Summary Free Text/Dictation no event. no dizziness or syncope Exam/Review of Systems Vital Signs Vitals Vital Signs Date Time Temp Pulse Resp B/P Pulse Ox O2 Delivery O2 Flow Rate FiO2 11/16/16 12:01 53 11/16/16 11:47 97.9 16 99/58 100 11/16/16 01:45 Room Air Intake and Output 11/15/16 11/15/16 11/16/16 15:00 23:00 07:00 Intake Total 800 ml Output Total 600 ml Balance 200 ml Exam Constitutional: alert, oriented, well developed Psych: nl mood/affect, no complaints Head: atraumatic, normocephalic Eyes: EOMI, PERRL, nl conjunctiva, nl lids ENMT: mucosa pink and moist, nl external ears & nose, nl lips & teeth, nl nasal mucosa & septum Neck: non-tender, supple Respiratory: clear to auscultation, normal air movement, No congested cough, No crackles/rales, No diminished breath sounds, No intercostal retraction, No labored breathing, No other, No respirations, No tactile fremitus, No wheezing Cardiovascular: nl pulses, regular rate and rhythm, No S3, No S4, No bruits, No diastolic murmur, No edema, No gallop, No irregular rhythm, No jugular venous distention (JVD), No murmurs/extra sounds, No other, No rub, No systolic murmur Gastrointestinal: nl liver, spleen, non-tender, soft, No ascites, No bowel sounds, No distended, No firm, No hepatomegaly, No mass , No other, No rebound or guarding, No splenomegaly, No surgical scars, No tender Musculoskeletal: nl extremities to inspection Extremities: normal pulses, No calf tenderness, No clubbing, No cyanosis, No edema, No other, No palpable cord, No pitting pedal edema, No tenderness 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, nl mental status, nl speech, nl strength Skin: nl turgor Lymph: nl lymph nodes Results Result Diagram: 11/16/16 1006 11/16/16 1006 Results 24 hrs Laboratory Tests Test 11/16/16 10:06 White Blood Count 5.4 Red Blood Count 3.99 L Hemoglobin 12.8 L Hematocrit 37.4 L Mean Corpuscular Volume 93.7 Mean Corpuscular Hemoglobin 32.1 Mean Corpuscular Hemoglobin Concent 34.2 Red Cell Distribution Width 13.0 Platelet Count 294 Mean Platelet Volume 10.6 H Neutrophils % 54.5 Lymphocytes % 32.2 Monocytes % 10.8 Eosinophils % 1.7 Basophils % 0.4 Nucleated Red Blood Cells % 0.0 Neutrophils # 2.9 Lymphocytes # 1.7 Monocytes # 0.6 Eosinophils # 0.1 Basophils # 0.0 Nucleated Red Blood Cells # 0.0 Sodium Level 139 Potassium Level 4.0 Chloride Level 106 Carbon Dioxide Level 25 Anion Gap 12 Blood Urea Nitrogen 20 Creatinine 0.96 Glucose Level 134 Calcium Level 9.0 Medications Medications Current Medications Lorazepam (Ativan) 0.5 mg Q6H PRN IV ANXIETY; Start 11/10/16 at 13:00 Nitroglycerin (Nitroglycerin (Sl Tab) 0.4 Mg) 1 tab Q5M PRN SL ANGINA; Start at 13:00 Aspirin (Halfprin) 81 mg DAILY PO Last administered on 11/16/16 09:57; Admin Dose 81 MG; Start 11/11/16 at 09:00 Atorvastatin Calcium (Lipitor) 40 mg QHS PO Last administered on 11/15/16 22: 06; Admin Dose 40 MG; Start 11/10/16 at 21:00 Carvedilol (Coreg) 6.25 mg BID PO Last administered on 11/16/16 09:57; Admin Dose 6.25 MG; Start 11/10/16 at 21:00 Clopidogrel Bisulfate (plaVIX) 75 mg DAILY PO Last administered on 11/16/16 09 :57; Admin Dose 75 MG; Start 11/11/16 at 09:00 Isosorbide Mononitrate (Imdur) 30 mg DAILY PO Last administered on 11/16/16 09 :57; Admin Dose 30 MG; Start 11/11/16 at 09:00 Pantoprazole (Protonix Tab) 40 mg DAILY@06 PO Last administered on 11/16/16 06 :23; Admin Dose 40 MG; Start 11/11/16 at 06:00 Salmeterol Xinafoate/ Fluticasone (Advair 100/50 Diskus) 1 inh BID INH Last administered on 11/16/16 09:55; Admin Dose 1 INH; Start 11/10/16 at 21:00 Acetaminophen/ Hydrocodone Bitart ([place] (5/325)) 1 tab Q4H PRN PO PAIN LEVEL 4 -7; Start 11/10/16 at 16:00 Morphine Sulfate (morphine) 2 mg Q6H PRN IV PAIN Last administered on 09:56; Admin Dose 2 MG; Start 11/10/16 at 16:30 Albuterol (Ventolin Hfa) 2 puff Q4H INH Last administered on 11/16/16 09:56; Admin Dose 2 PUFF; Start 11/10/16 at 18:30 VENTURA DARDEN MD November 16, 2016 13:54
[2016-11-16] MEDS: ATORVASTATIN 40 MG TAB PO SCH (20:48)
[2016-11-17] MEDS: ALBUTEROL 18 GM INHALER INH SCH ×6 (02:23→22:30)
[2016-11-17] MEDS: morphine 2 MG INJ IV PRN ×4 (04:00→23:33)
[2016-11-17] MEDS: PANTOPRAZOLE (EC) 40 MG TAB PO SCH (05:38)
[2016-11-17 08:17] VITALS: BP 113/59; RESP 18
[2016-11-17] MEDS: SALMETEROL/FLUTICASONE 100/50 INHA INH SCH ×2 (08:18→20:47)
[2016-11-17] MEDS: ASPIRIN (EC) 81 MG TAB PO SCH (08:20)
[2016-11-17] MEDS: CLOPIDOGREL 75 MG TAB PO SCH (08:21)
[2016-11-17] MEDS: ISOSORBIDE MONONITRATE(SR)30 MG TAB PO SCH (08:21)
[2016-11-17 13:50] LABS: ADD SCAN DIFF NO
[2016-11-17 13:54] LABS: BASOPHILS % 0.5 % (0.0-2.0); EOSINOPHILS # 0.1 10^3/ul (0.0-0.5); HEMATOCRIT 37.8 % (42.0-52.0); HEMOGLOBIN 12.9 g/dl (14.0-18.0); LYMPHOCYTES # 1.5 10^3/ul (0.8-2.9); LYMPHOCYTES % 24.1 % (15.0-51.0); MEAN CORPUSCULAR HEMOGLOBIN 32.2 pg (29.0-33.0); MEAN CORPUSCULAR HGB CONC 34.1 g/dl (32.0-37.0); MEAN CORPUSCULAR VOLUME 94.3 fl (82.0-101.0); MEAN PLATELET VOLUME 10.6 fl (7.4-10.4); MONOCYTE # 0.5 10^3/ul (0.3-0.9); MONOCYTES % 8.4 % (0.0-11.0); NEUTROPHILS % 65.7 % (39.0-77.0); PLATELET COUNT 287 10^3/UL (140-415); RED BLOOD COUNT 4.01 10^6/ul (4.70-6.10); RED CELL DISTRIBUTION WIDTH 13.2 % (11.5-14.5); WHITE BLOOD COUNT 6.1 10^3/ul (4.8-10.8)
[2016-11-17 14:07] LABS: POTASSIUM 3.8 mmol/L (3.5-5.1)
[2016-11-17 14:09] LABS: CREATININE 0.9 mg/dl (0.61-1.24)
--- NOTE | 2016-11-17 14:46 | PN ---
Date/Time of Note Date/Time of Note DATE: 11/17/16 TIME: 14:44 Assessment/Plan VTE Prophylaxis VTE Prophylaxis Intervention: heparin Lines/Catheters IV C[facility]ter Type (from [facility] Saline Lock Urinary Cath still in place: No Assessment/Plan Assessment/Plan 1. Syncope, unremarkable CT head, carotidUS, echocardiography, no recurrence 2. Chronic obstructive pulmonary disease. DuoNeb p.r.n. Continue Combivent and Advair as well. 3. Coronary artery disease with stent placement in the past. Continue aspirin and Plavix for now. 4. High cholesterol - Continue to monitor for now. 5. Hypertension. Again, continue Coreg and Imdur for now. Monitor blood pressure very carefully. 6. Gastrointestinal prophylaxis. PPI. 7. Deep venous thrombosis prophylaxis. Heparin subQ. 8. Awaiting for SNF placement Subjective 24 Hr Interval Summary Free Text/Dictation no event Exam/Review of Systems Vital Signs Vitals Vital Signs Date Time Temp Pulse Resp B/P Pulse Ox O2 Delivery O2 Flow Rate FiO2 11/17/16 08:17 98.4 56 18 113/59 93 11/16/16 01:45 Room Air Intake and Output 11/16/16 11/16/16 11/17/16 15:00 23:00 07:00 Intake Total 800 ml 500 ml Balance 800 ml 500 ml Exam Constitutional: alert, oriented, well developed Psych: nl mood/affect, no complaints Head: atraumatic, normocephalic Eyes: EOMI, PERRL, nl conjunctiva, nl lids ENMT: nl external ears & nose, nl lips & teeth, nl nasal mucosa & septum Neck: non-tender, supple Respiratory: clear to auscultation, normal air movement, No congested cough, No crackles/rales, No diminished breath sounds, No intercostal retraction, No labored breathing, No other, No respirations, No tactile fremitus, No wheezing Cardiovascular: nl pulses, regular rate and rhythm, No S3, No S4, No bruits, No diastolic murmur, No edema, No gallop, No irregular rhythm, No jugular venous distention (JVD), No murmurs/extra sounds, No other, No rub, No systolic murmur Gastrointestinal: nl liver, spleen, non-tender, soft, No ascites, No bowel sounds, No distended, No firm, No hepatomegaly, No mass , No other, No rebound or guarding, No splenomegaly, No surgical scars, No tender Musculoskeletal: nl extremities to inspection Extremities: normal pulses, No calf tenderness, No clubbing, No cyanosis, No edema, No other, No palpable cord, No pitting pedal edema, No tenderness 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, nl mental status, nl speech, nl strength Skin: nl turgor Lymph: nl lymph nodes Results Result Diagram: 11/17/16 1340 11/17/16 1340 Results 24 hrs Laboratory Tests Test 11/17/16 13:40 White Blood Count 6.1 Red Blood Count 4.01 L Hemoglobin 12.9 L Hematocrit 37.8 L Mean Corpuscular Volume 94.3 Mean Corpuscular Hemoglobin 32.2 Mean Corpuscular Hemoglobin Concent 34.1 Red Cell Distribution Width 13.2 Platelet Count 287 Mean Platelet Volume 10.6 H Neutrophils % 65.7 Lymphocytes % 24.1 Monocytes % 8.4 Eosinophils % 1.0 Basophils % 0.5 Nucleated Red Blood Cells % 0.0 Neutrophils # 4.0 Lymphocytes # 1.5 Monocytes # 0.5 Eosinophils # 0.1 Basophils # 0.0 Nucleated Red Blood Cells # 0.0 Sodium Level 143 Potassium Level 3.8 Chloride Level 105 Carbon Dioxide Level 27 Anion Gap 15 Blood Urea Nitrogen 23 H Creatinine 0.90 Glucose Level 176 Calcium Level 9.0 Medications Medications Current Medications Lorazepam (Ativan) 0.5 mg Q6H PRN IV ANXIETY; Start 11/10/16 at 13:00 Nitroglycerin (Nitroglycerin (Sl Tab) 0.4 Mg) 1 tab Q5M PRN SL ANGINA; Start at 13:00 Aspirin (Halfprin) 81 mg DAILY PO Last administered on 11/16/16 09:57; Admin Dose 81 MG; Start 11/11/16 at 09:00 Atorvastatin Calcium (Lipitor) 40 mg QHS PO Last administered on 11/16/16 20: 48; Admin Dose 40 MG; Start 11/10/16 at 21:00 Carvedilol (Coreg) 6.25 mg BID PO Last administered on 11/16/16 09:57; Admin Dose 6.25 MG; Start 11/10/16 at 21:00 Clopidogrel Bisulfate (plaVIX) 75 mg DAILY PO Last administered on 11/16/16 09 :57; Admin Dose 75 MG; Start 11/11/16 at 09:00 Isosorbide Mononitrate (Imdur) 30 mg DAILY PO Last administered on 11/16/16 09 :57; Admin Dose 30 MG; Start 11/11/16 at 09:00 Pantoprazole (Protonix Tab) 40 mg DAILY@06 PO Last administered on 11/17/16 05 :38; Admin Dose 40 MG; Start 11/11/16 at 06:00 Salmeterol Xinafoate/ Fluticasone (Advair 100/50 Diskus) 1 inh BID INH Last administered on 11/16/16 20:48; Admin Dose 1 INH; Start 11/10/16 at 21:00 Acetaminophen/ Hydrocodone Bitart ([place] (5/325)) 1 tab Q4H PRN PO PAIN LEVEL 4 -7; Start 11/10/16 at 16:00 Morphine Sulfate (morphine) 2 mg Q6H PRN IV PAIN Last administered on 11:42; Admin Dose 2 MG; Start 11/10/16 at 16:30 Albuterol (Ventolin Hfa) 2 puff Q4H INH Last administered on 11/17/16 05:38; Admin Dose 2 PUFF; Start 11/10/16 at 18:30 VENTURA DARDEN MD November 17, 2016 14:46
[2016-11-17 19:48] VITALS: BP 118/68; RESP 18
[2016-11-17] MEDS: ATORVASTATIN 40 MG TAB PO SCH (20:48)
[2016-11-18] MEDS: ALBUTEROL 18 GM INHALER INH SCH ×6 (02:27→23:18)
[2016-11-18] MEDS: morphine 2 MG INJ IV PRN ×4 (05:27→23:16)
[2016-11-18] MEDS: PANTOPRAZOLE (EC) 40 MG TAB PO SCH (05:27)
[2016-11-18 08:00] VITALS: BP 118/64; RESP 18
[2016-11-18] MEDS: CLOPIDOGREL 75 MG TAB PO SCH ×2 (09:00→11:43)
[2016-11-18] MEDS: ISOSORBIDE MONONITRATE(SR)30 MG TAB PO SCH ×2 (09:00→12:02)
[2016-11-18] MEDS: SALMETEROL/FLUTICASONE 100/50 INHA INH SCH ×3 (09:00→20:56)
[2016-11-18] MEDS: ASPIRIN (EC) 81 MG TAB PO SCH ×2 (09:00→11:43)
--- NOTE | 2016-11-18 14:42 | PN ---
Date/Time of Note Date/Time of Note DATE: 11/18/16 TIME: 14:40 Assessment/Plan VTE Prophylaxis VTE Prophylaxis Intervention: heparin Lines/Catheters IV Catheter Type (from [facility]): Saline Lock Urinary Cath still in place: No Assessment/Plan Assessment/Plan 1. Syncope, unremarkable CT head, carotid US, echocardiography, no recurrence 2. Chronic obstructive pulmonary disease. DuoNeb p.r.n. Continue Combivent and Advair as well. 3. Coronary artery disease with stent placement in the past. Continue aspirin and Plavix for now. 4. High cholesterol - Continue to monitor for now. 5. Hypertension. Again, continue Coreg and Imdur for now. Monitor blood pressure very carefully. 6. Gastrointestinal prophylaxis. PPI. 7. Deep venous thrombosis prophylaxis. Heparin subQ. 8. Awaiting for SNF placement Subjective 24 Hr Interval Summary Free Text/Dictation weak Exam/Review of Systems Vital Signs Vitals Vital Signs Date Time Temp Pulse Resp B/P Pulse Ox O2 Delivery O2 Flow Rate FiO2 11/18/16 08:00 98.4 56 18 118/64 96 11/16/16 01:45 Room Air Intake and Output 11/17/16 11/17/16 11/18/16 15:00 23:00 07:00 Intake Total 820 ml 550 ml Output Total 950 ml Balance -130 ml 550 ml Exam Constitutional: alert, oriented, well developed Psych: nl mood/affect, no complaints Head: atraumatic, normocephalic Eyes: EOMI, PERRL, nl conjunctiva, nl lids ENMT: nl external ears & nose, nl lips & teeth, nl nasal mucosa & septum Neck: non-tender, supple Respiratory: clear to auscultation, normal air movement, No congested cough, No crackles/rales, No diminished breath sounds, No intercostal retraction, No labored breathing, No other, No respirations, No tactile fremitus, No wheezing Cardiovascular: nl pulses, regular rate and rhythm, No S3, No S4, No bruits, No diastolic murmur, No edema, No gallop, No irregular rhythm, No jugular venous distention (JVD), No murmurs/extra sounds, No other, No rub, No systolic murmur Gastrointestinal: nl liver, spleen, non-tender, soft, No ascites, No bowel sounds, No distended, No firm, No hepatomegaly, No mass , No other, No rebound or guarding, No splenomegaly, No surgical scars, No tender Musculoskeletal: nl extremities to inspection Extremities: normal pulses, No calf tenderness, No clubbing, No cyanosis, No edema, No other, No palpable cord, No pitting pedal edema, No tenderness Neurological: 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 intact, nl mental status, nl speech, nl strength Skin: nl turgor Lymph: nl lymph nodes Results Result Diagram: 11/17/16 1340 11/17/16 1340 Medications Medications Current Medications Lorazepam (Ativan) 0.5 mg Q6H PRN IV ANXIETY; Start 11/10/16 at 13:00 Nitroglycerin (Nitroglycerin (Sl Tab) 0.4 Mg) 1 tab Q5M PRN SL ANGINA; Start at 13:00 Aspirin (Halfprin) 81 mg DAILY PO Last administered on 11/18/16 11:43; Admin Dose 81 MG; Start 11/11/16 at 09:00 Atorvastatin Calcium (Lipitor) 40 mg QHS PO Last administered on 11/17/16 20: 48; Admin Dose 40 MG; Start 11/10/16 at 21:00 Carvedilol (Coreg) 6.25 mg BID PO Last administered on 11/17/16 20:48; Admin Dose 6.25 MG; Start 11/10/16 at 21:00 Clopidogrel Bisulfate (plaVIX) 75 mg DAILY PO Last administered on 11/18/16 11 :43; Admin Dose 75 MG; Start 11/11/16 at 09:00 Isosorbide Mononitrate (Imdur) 30 mg DAILY PO Last administered on 11/16/16 09 :57; Admin Dose 30 MG; Start 11/11/16 at 09:00 Pantoprazole (Protonix Tab) 40 mg DAILY@06 PO Last administered on 11/18/16 05 :27; Admin Dose 40 MG; Start 11/11/16 at 06:00 Salmeterol Xinafoate/ Fluticasone (Advair 100/50 Diskus) 1 inh BID INH Last administered on 11/18/16 11:43; Admin Dose 1 INH; Start 11/10/16 at 21:00 Acetaminophen/ Hydrocodone Bitart ([place] (5/325)) 1 tab Q4H PRN PO PAIN LEVEL 4 -7; Start 11/10/16 at 16:00 Morphine Sulfate (morphine) 2 mg Q6H PRN IV PAIN Last administered on 11:44; Admin Dose 2 MG; Start 11/10/16 at 16:30 Albuterol (Ventolin Hfa) 2 puff Q4H INH Last administered on 11/18/16 11:44; Admin Dose 2 PUFF; Start 11/10/16 at 18:30 VENTURA DARDEN MD November 18, 2016 14:41
[2016-11-18 19:55] VITALS: BP 131/62; RESP 18
[2016-11-18] MEDS: ATORVASTATIN 40 MG TAB PO SCH (20:55)
[2016-11-19] MEDS: ALBUTEROL 18 GM INHALER INH SCH ×6 (02:30→22:48)
[2016-11-19] MEDS: PANTOPRAZOLE (EC) 40 MG TAB PO SCH (05:12)
[2016-11-19] MEDS: morphine 2 MG INJ IV PRN ×4 (05:22→23:40)
[2016-11-19 07:20] VITALS: BP 136/76; RESP 20
[2016-11-19 07:30] VITALS: BP_SYST 136; BP_SYST 137; BP_SYST 174; BP_DIAS 76; BP_DIAS 77; RESP 18; RESP 20
[2016-11-19] MEDS: CLOPIDOGREL 75 MG TAB PO SCH (11:06)
[2016-11-19] MEDS: ASPIRIN (EC) 81 MG TAB PO SCH (11:06)
[2016-11-19] MEDS: SALMETEROL/FLUTICASONE 100/50 INHA INH SCH ×2 (11:07→21:37)
[2016-11-19] MEDS: ISOSORBIDE MONONITRATE(SR)30 MG TAB PO SCH (11:07)
--- NOTE | 2016-11-19 16:12 | PN ---
Date/Time of Note Date/Time of Note DATE: 11/19/16 TIME: 16:10 Assessment/Plan VTE Prophylaxis VTE Prophylaxis Intervention: heparin Lines/Catheters IV C[facility] Type (from [facility]): Saline Lock Urinary Cath still in place: No Assessment/Plan Assessment/Plan 1. Syncope, unremarkable CT head, carotid US, echocardiography, no recurrence 2. Chronic obstructive pulmonary disease. DuoNeb p.r.n. Continue Combivent and Advair as well. 3. Coronary artery disease with stent placement in the past. Continue aspirin and Plavix for now. 4. High cholesterol - Continue to monitor for now. 5. Hypertension. Again, continue Coreg and Imdur for now. Monitor blood pressure very carefully. 6. Gastrointestinal prophylaxis. PPI. 7. Deep venous thrombosis prophylaxis. Heparin subQ. 8. Awaiting for SNF placement Subjective 24 Hr Interval Summary Free Text/Dictation still weak Exam/Review of Systems Vital Signs Vitals Vital Signs Date Time Temp Pulse Resp B/P Pulse Ox O2 Delivery O2 Flow Rate FiO2 11/19/16 07:30 98.6 86 18 136/76 96 11/16/16 01:45 Room Air Intake and Output 11/18/16 11/18/16 11/19/16 15:00 23:00 07:00 Intake Total 480 ml 480 ml Balance 480 ml 480 ml Exam Constitutional: alert, oriented, well developed Psych: nl mood/affect, no complaints Head: atraumatic, normocephalic Eyes: EOMI, PERRL, nl conjunctiva, nl lids ENMT: nl external ears & nose, nl lips & teeth, nl nasal mucosa & septum Neck: non-tender, supple Respiratory: clear to auscultation, normal air movement, No congested cough, No crackles/rales, No diminished breath sounds, No intercostal retraction, No labored breathing, No other, No respirations, No tactile fremitus, No wheezing Cardiovascular: nl pulses, regular rate and rhythm, No S3, No S4, No bruits, No diastolic murmur, No edema, No gallop, No irregular rhythm, No jugular venous distention (JVD), No murmurs/extra sounds, No other, No rub, No systolic murmur Gastrointestinal: nl liver, spleen, non-tender, soft, No ascites, No bowel sounds, No distended, No firm, No hepatomegaly, No mass , No other, No rebound or guarding, No splenomegaly, No surgical scars, No tender Musculoskeletal: nl extremities to inspection Extremities: normal pulses, No calf tenderness, No clubbing, No cyanosis, No edema, No other, No palpable cord, No pitting pedal edema, No tenderness 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, nl mental status, nl speech, nl strength Skin: nl turgor Lymph: nl lymph nodes Results Result Diagram: 11/17/16 1340 11/17/16 1340 Medications Medications Current Medications Lorazepam (Ativan) 0.5 mg Q6H PRN IV ANXIETY; Start 11/10/16 at 13:00 Nitroglycerin (Nitroglycerin (Sl Tab) 0.4 Mg) 1 tab Q5M PRN SL ANGINA; Start at 13:00 Aspirin (Halfprin) 81 mg DAILY PO Last administered on 11/19/16 11:06; Admin Dose 81 MG; Start 11/11/16 at 09:00 Atorvastatin Calcium (Lipitor) 40 mg QHS PO Last administered on 11/18/16 20: 55; Admin Dose 40 MG; Start 11/10/16 at 21:00 Carvedilol (Coreg) 6.25 mg BID PO Last administered on 11/19/16 11:07; Admin Dose 6.25 MG; Start 11/10/16 at 21:00 Clopidogrel Bisulfate (plaVIX) 75 mg DAILY PO Last administered on 11/19/16 11 :06; Admin Dose 75 MG; Start 11/11/16 at 09:00 Isosorbide Mononitrate (Imdur) 30 mg DAILY PO Last administered on 11/19/16 11 :07; Admin Dose 30 MG; Start 11/11/16 at 09:00 Pantoprazole (Protonix Tab) 40 mg DAILY@06 PO Last administered on 11/18/16 05 :27; Admin Dose 40 MG; Start 11/11/16 at 06:00 Salmeterol Xinafoate/ Fluticasone (Advair 100/50 Diskus) 1 inh BID INH Last administered on 11/19/16 11:07; Admin Dose 1 INH; Start 11/10/16 at 21:00 Acetaminophen/ Hydrocodone Bitart ([place] (5/325)) 1 tab Q4H PRN PO PAIN LEVEL 4 -7; Start 11/10/16 at 16:00 Morphine Sulfate (morphine) 2 mg Q6H PRN IV PAIN Last administered on 11:09; Admin Dose 2 MG; Start 11/10/16 at 16:30 Albuterol (Ventolin Hfa) 2 puff Q4H INH Last administered on 11/19/16 11:08; Admin Dose 2 PUFF; Start 11/10/16 at 18:30 VENTURA DARDEN MD November 19, 2016 16:12
[2016-11-19 20:02] VITALS: BP 89/51; RESP 18
[2016-11-19 21:00] VITALS: BP 96/55
[2016-11-19] MEDS: ATORVASTATIN 40 MG TAB PO SCH (21:36)
[2016-11-20] MEDS: ALBUTEROL 18 GM INHALER INH SCH ×6 (02:30→20:55)
[2016-11-20 06:09] LABS: ADD SCAN DIFF NO
[2016-11-20] MEDS: PANTOPRAZOLE (EC) 40 MG TAB PO SCH (06:11)
[2016-11-20] MEDS: morphine 2 MG INJ IV PRN ×3 (06:13→18:00)
[2016-11-20 06:14] LABS: BASOPHILS % 0.6 % (0.0-2.0); EOSINOPHILS # 0.1 10^3/ul (0.0-0.5); EOSINOPHILS % 1.7 % (0.0-7.0); HEMATOCRIT 38.4 % (42.0-52.0); HEMOGLOBIN 12.6 g/dl (14.0-18.0); LYMPHOCYTES # 2.2 10^3/ul (0.8-2.9); LYMPHOCYTES % 34.2 % (15.0-51.0); MEAN CORPUSCULAR HGB CONC 32.8 g/dl (32.0-37.0); MEAN CORPUSCULAR VOLUME 94.3 fl (82.0-101.0); MONOCYTE # 0.8 10^3/ul (0.3-0.9); MONOCYTES % 12.9 % (0.0-11.0); NEUTROPHIL # 3.2 10^3/ul (1.6-7.5); NEUTROPHILS % 50.4 % (39.0-77.0); PLATELET COUNT 267 10^3/UL (140-415); RED BLOOD COUNT 4.07 10^6/ul (4.70-6.10); RED CELL DISTRIBUTION WIDTH 13.3 % (11.5-14.5); WHITE BLOOD COUNT 6.4 10^3/ul (4.8-10.8)
[2016-11-20 06:30] LABS: CREATININE 0.93 mg/dl (0.61-1.24)
[2016-11-20 06:31] LABS: CALCIUM 9.1 mg/dl (8.4-10.2)
[2016-11-20 07:45] VITALS: BP_SYST 110; BP_SYST 149; BP_DIAS 64; BP_DIAS 72; RESP 18; RESP 20
[2016-11-20] MEDS: ISOSORBIDE MONONITRATE(SR)30 MG TAB PO SCH (09:26)
[2016-11-20] MEDS: CLOPIDOGREL 75 MG TAB PO SCH (09:26)
[2016-11-20] MEDS: ASPIRIN (EC) 81 MG TAB PO SCH (09:26)
[2016-11-20] MEDS: SALMETEROL/FLUTICASONE 100/50 INHA INH SCH (09:27)
--- NOTE | 2016-11-20 15:07 | PN ---
Date/Time of Note Date/Time of Note DATE: 11/20/16 TIME: 15:01 Assessment/Plan VTE Prophylaxis VTE Prophylaxis Intervention: LMWH Lines/Catheters IV C[facility]ter Type (from [facility] Saline Lock Urinary Cath still in place: No Assessment/Plan Problems: (1) Coronary artery disease Status: Chronic Comment: This is quiescent. I concur with continuing the beta-blockade however given that he does not have significant systolic dysfunction and has significant lung disease then a cardioselective beta-karel as opposed with noncardioselective beta-karel would be appropriate here. As such carvedilol is not a great choice. We will switch him over to metoprolol XL 25 mg twice daily and follow. Qualifiers: Coronary Disease-Associated Artery/Lesion type: [place] artery [place] vs. transplanted heart: [place] heart Associated angina: without angina Qualified Code: I25.10 - Coronary artery disease involving [place] coronary artery of [place] heart without angina pectoris (2) Essential hypertension Status: Chronic Comment: Stable and controlled. (3) COPD (chronic obstructive pulmonary disease) Status: Chronic Comment: He is not on full therapy. First I will put him back to his outpatient dosage of Advair second since Singulair did not work in the past who will not try it again. Will give him low-dose theophylline and add a Spiriva and see if we can get his breathing better. Please note this patient if he improves his of personally type that may not acknowledge improvement Qualifiers: COPD type: chronic bronchitis Chronic bronchitis type: simple Qualified Code: J41.0 - Simple chronic bronchitis (4) Diastolic dysfunction Status: Chronic Comment: This is mild diastolic dysfunction low-dose beta-blockade will suffice (5) Syncope Status: Acute Comment: He has been without symptomatology. Qualifiers: Syncope type: unspecified Qualified Code: R55 - Syncope, unspecified syncope type Assessment/Plan He is on pain medications is unclear exactly what were treating here. We will get him back off of this and try and use some oral medication Subjective 24 Hr Interval Summary Free Text/Dictation Patient reports that he is generally doing okay no specific offered complaints Constitutional: no complaints (No fevers chills or sweats) Respiratory: shortness of breath, wheezing (Please note he had previously been on singular without help he has never been on theophylline is never been on Spiriva) Cardiovascular: no complaints Gastrointestinal: no complaints Genitourinary: no complaints Exam/Review of Systems Vital Signs Vitals Vital Signs Date Time Temp Pulse Resp B/P Pulse Ox O2 Delivery O2 Flow Rate FiO2 11/20/16 07:45 98.8 76 18 110/64 94 Intake and Output 11/19/16 11/19/16 11/20/16 15:00 23:00 07:00 Intake Total 300 ml 500 ml Balance 300 ml 500 ml Exam Constitutional: alert, oriented Respiratory: diminished breath sounds, wheezing Cardiovascular: nl pulses, regular rate and rhythm Results Result Diagram: 11/20/16 0506 11/20/16 0506 Results 24 hrs Laboratory Tests Test 11/20/16 05:06 White Blood Count 6.4 Red Blood Count 4.07 L Hemoglobin 12.6 L Hematocrit 38.4 L Mean Corpuscular Volume 94.3 Mean Corpuscular Hemoglobin 31.0 Mean Corpuscular Hemoglobin Concent 32.8 Red Cell Distribution Width 13.3 Platelet Count 267 Mean Platelet Volume 11.0 H Neutrophils % 50.4 Lymphocytes % 34.2 Monocytes % 12.9 H Eosinophils % 1.7 Basophils % 0.6 Nucleated Red Blood Cells % 0.0 Neutrophils # 3.2 Lymphocytes # 2.2 Monocytes # 0.8 Eosinophils # 0.1 Basophils # 0.0 Nucleated Red Blood Cells # 0.0 Sodium Level 142 Potassium Level 4.0 Chloride Level 103 Carbon Dioxide Level 28 Anion Gap 15 Blood Urea Nitrogen 29 H Creatinine 0.93 Glucose Level 102 Calcium Level 9.1 Medications Medications Current Medications Lorazepam (Ativan) 0.5 mg Q6H PRN IV ANXIETY; Start 11/10/16 at 13:00 Nitroglycerin (Nitroglycerin (Sl Tab) 0.4 Mg) 1 tab Q5M PRN SL ANGINA; Start at 13:00 Aspirin (Halfprin) 81 mg DAILY PO Last administered on 11/20/16 09:26; Admin Dose 81 MG; Start 11/11/16 at 09:00 Atorvastatin Calcium (Lipitor) 40 mg QHS PO Last administered on 11/19/16 21: 36; Admin Dose 40 MG; Start 11/10/16 at 21:00 Clopidogrel Bisulfate (plaVIX) 75 mg DAILY PO Last administered on 11/20/16 09 :26; Admin Dose 75 MG; Start 11/11/16 at 09:00 Isosorbide Mononitrate (Imdur) 30 mg DAILY PO Last administered on 11/20/16 09 :26; Admin Dose 30 MG; Start 11/11/16 at 09:00 Pantoprazole (Protonix Tab) 40 mg DAILY@06 PO Last administered on 11/20/16 06 :11; Admin Dose 40 MG; Start 11/11/16 at 06:00 Acetaminophen/ Hydrocodone Bitart ([place] (5/325)) 1 tab Q4H PRN PO PAIN LEVEL 4 -7; Start 11/10/16 at 16:00 Albuterol (Ventolin Hfa) 2 puff Q4H INH Last administered on 11/20/16 06:22; Admin Dose 2 PUFF; Start 11/10/16 at 18:30 Morphine Sulfate (morphine) 1 mg Q6H PRN IV PAIN; Start 11/20/16 at 16:30; Status UNV Theophylline ([place]usz-24) 200 mg QHS PO ; Start 11/20/16 at 21:00; Status UNV Salmeterol Xinafoate/ Fluticasone (Advair 500/50 Diskus) 1 inh BID INH ; Start 11/20/16 at 21:00; Status UNV Tiotropium [place] (Spiriva) 1 inh DAILY INH ; Start 11/20/16 at 15:00; Status UNV Metoprolol Succinate (Toprol Xl) 25 mg BID PO ; Start 11/20/16 at 21:00; Status UNV KATRIN VILLALPANDO MD November 20, 2016 15:07
[2016-11-20] MEDS: TIOTROPIUM 18 MCG CAPSULE INHA DEV INH SCH (17:59)
[2016-11-20] MEDS: MELOXICAM 15 MG TAB PO SCH (17:59)
[2016-11-20 20:32] VITALS: BP 109/56; RESP 16
[2016-11-20] MEDS: THEOPHYLLINE (SR) 200 MG CAPSR PO SCH (20:46)
[2016-11-20] MEDS: ATORVASTATIN 40 MG TAB PO SCH (20:46)
[2016-11-20] MEDS: SALMETEROL/FLUTICASONE 500/50 INHA INH SCH (20:47)
[2016-11-20] MEDS: METOPROLOL (XL) 25 MG TAB PO SCH (20:54)
[2016-11-20 20:57] VITALS: BP 122/63; PULSE 53
[2016-11-20] MEDS ORDERED: SOD CHLORIDE 0.9% 500 ML IV ONE (22:00)
[2016-11-21] MEDS: morphine 2 MG INJ IV PRN ×4 (00:53→19:02)
[2016-11-21] MEDS: ALBUTEROL 18 GM INHALER INH SCH ×6 (02:30→22:30)
[2016-11-21] MEDS: PANTOPRAZOLE (EC) 40 MG TAB PO SCH (06:00)
[2016-11-21 08:23] VITALS: BP 125/58; RESP 17
[2016-11-21] MEDS: ISOSORBIDE MONONITRATE(SR)30 MG TAB PO SCH (09:00)
[2016-11-21] MEDS: MELOXICAM 15 MG TAB PO SCH (09:00)
[2016-11-21] MEDS: METOPROLOL (XL) 25 MG TAB PO SCH (09:00)
[2016-11-21] MEDS: SALMETEROL/FLUTICASONE 500/50 INHA INH SCH ×2 (09:22→20:14)
[2016-11-21] MEDS: ASPIRIN (EC) 81 MG TAB PO SCH (09:23)
[2016-11-21] MEDS: TIOTROPIUM 18 MCG CAPSULE INHA DEV INH SCH (09:23)
[2016-11-21] MEDS: CLOPIDOGREL 75 MG TAB PO SCH (09:24)
--- NOTE | 2016-11-21 10:12 | PN ---
Date/Time of Note Date/Time of Note DATE: 11/21/16 TIME: 10:10 Assessment/Plan VTE Prophylaxis VTE Prophylaxis Intervention: heparin Lines/Catheters IV C[facility]ter Type (from [facility] Saline Lock Urinary Cath still in place: No Assessment/Plan Problems: (1) Syncope Status: Acute Comment: No further episodes of syncope or near syncope under observation. Please note the changes in medication regimen. Does run a bit of bradycardia. However this does not appear to be cardiac in nature. Placement is the issue and we are awaiting assistance with placement Qualifiers: Syncope type: unspecified Qualified Code: R55 - Syncope, unspecified syncope type (2) Diastolic dysfunction Status: Chronic Comment: Noted on and on appropriate treatment (3) COPD (chronic obstructive pulmonary disease) Status: Chronic Comment: The patient actually on physical exam has improved. Continue with a modified regimen Qualifiers: COPD type: chronic bronchitis Chronic bronchitis type: simple Qualified Code: J41.0 - Simple chronic bronchitis (4) Essential hypertension Status: Chronic Comment: Well-controlled (5) Coronary artery disease Status: Chronic Comment: Quiescent Qualifiers: Coronary Disease-Associated Artery/Lesion type: [place] artery [place] vs. transplanted heart: [place] heart Associated angina: without angina Qualified Code: I25.10 - Coronary artery disease involving [place] coronary artery of [place] heart without angina pectoris Subjective 24 Hr Interval Summary Free Text/Dictation Patient reports no significant change. Constitutional: no complaints (No fever chills or sweats) Respiratory: cough, wheezing Cardiovascular: no complaints Gastrointestinal: no complaints Genitourinary: no complaints Musculoskeletal: no complaints Exam/Review of Systems Vital Signs Vitals Vital Signs Date Time Temp Pulse Resp B/P Pulse Ox O2 Delivery O2 Flow Rate FiO2 11/21/16 08:23 97.7 50 17 125/58 94 Intake and Output 11/20/16 11/20/16 11/21/16 15:00 23:00 07:00 Intake Total 700 ml 320 ml Output Total 200 ml Balance 700 ml 120 ml Exam Constitutional: alert, oriented Neck: non-tender, supple Respiratory: diminished breath sounds (Better air movement), wheezing ( Continues wheezing but noticeably less) Cardiovascular: nl pulses, regular rate and rhythm Gastrointestinal: nl liver, spleen, non-tender, soft Results Result Diagram: 11/20/16 0506 11/20/16 0506 Medications Medications Current Medications Lorazepam (Ativan) 0.5 mg Q6H PRN IV ANXIETY; Start 11/10/16 at 13:00 Nitroglycerin (Nitroglycerin (Sl Tab) 0.4 Mg) 1 tab Q5M PRN SL ANGINA; Start at 13:00 Aspirin (Halfprin) 81 mg DAILY PO Last administered on 11/21/16 09:23; Admin Dose 81 MG; Start 11/11/16 at 09:00 Atorvastatin Calcium (Lipitor) 40 mg QHS PO Last administered on 11/20/16 20: 46; Admin Dose 40 MG; Start 11/10/16 at 21:00 Clopidogrel Bisulfate (plaVIX) 75 mg DAILY PO Last administered on 11/21/16 09 :24; Admin Dose 75 MG; Start 11/11/16 at 09:00 Isosorbide Mononitrate (Imdur) 30 mg DAILY PO Last administered on 11/20/16 09 :26; Admin Dose 30 MG; Start 11/11/16 at 09:00 Pantoprazole (Protonix Tab) 40 mg DAILY@06 PO Last administered on 11/20/16 06 :11; Admin Dose 40 MG; Start 11/11/16 at 06:00 Acetaminophen/ Hydrocodone Bitart ([place] (5/325)) 1 tab Q4H PRN PO PAIN LEVEL 4 -7; Start 11/10/16 at 16:00 Albuterol (Ventolin Hfa) 2 puff Q4H INH Last administered on 11/20/16 20:55; Admin Dose 2 PUFF; Start 11/10/16 at 18:30 Morphine Sulfate (morphine) 1 mg Q6H PRN IV PAIN Last administered on 06:52; Admin Dose 1 MG; Start 11/20/16 at 16:30 Theophylline (Mateusz-24) 200 mg QHS PO Last administered on 11/20/16 20:46; Admin Dose 200 MG; Start 11/20/16 at 21:00 Salmeterol Xinafoate/ Fluticasone (Advair 500/50 Diskus) 1 inh BID INH Last administered on 11/21/16 09:22; Admin Dose 1 INH; Start 11/20/16 at 21:00 Tiotropium [place] (Spiriva) 1 inh DAILY INH Last administered on 11/21/16 09: 23; Admin Dose 1 INH; Start 11/20/16 at 15:00 Metoprolol Succinate (Toprol Xl) 25 mg BID PO ; Start 11/20/16 at 21:00 Meloxicam (Mobic) 15 mg DAILY PO Last administered on 11/20/16 17:59; Admin Dose 15 MG; Start 11/20/16 at 16:00 KATRIN VILLALPANDO MD November 21, 2016 10:12
[2016-11-21] MEDS: ATORVASTATIN 40 MG TAB PO SCH (20:14)
[2016-11-21 20:15] VITALS: BP 124/57; RESP 18
[2016-11-21] MEDS: THEOPHYLLINE (SR) 200 MG CAPSR PO SCH (20:16)
[2016-11-22] MEDS: morphine 2 MG INJ IV PRN ×3 (00:56→15:45)
[2016-11-22] MEDS: ALBUTEROL 18 GM INHALER INH SCH ×6 (02:30→22:06)
[2016-11-22] MEDS: PANTOPRAZOLE (EC) 40 MG TAB PO SCH (05:16)
[2016-11-22 08:22] VITALS: BP 110/65; RESP 16
[2016-11-22] MEDS: METOPROLOL (XL) 25 MG TAB PO SCH (09:00)
[2016-11-22] MEDS: TIOTROPIUM 18 MCG CAPSULE INHA DEV INH SCH (09:00)
[2016-11-22] MEDS: ISOSORBIDE MONONITRATE(SR)30 MG TAB PO SCH (09:00)
[2016-11-22] MEDS: ASPIRIN (EC) 81 MG TAB PO SCH (09:00)
[2016-11-22] MEDS: SALMETEROL/FLUTICASONE 500/50 INHA INH SCH ×2 (09:00→22:06)
[2016-11-22] MEDS: CLOPIDOGREL 75 MG TAB PO SCH (09:00)
[2016-11-22] MEDS: MELOXICAM 15 MG TAB PO SCH (09:00)
--- NOTE | 2016-11-22 17:37 | PN ---
Date/Time of Note Date/Time of Note DATE: 11/22/16 TIME: 17:34 Assessment/Plan VTE Prophylaxis VTE Prophylaxis Intervention: other Lines/Catheters IV C[facility]ter Type (from [facility] Saline Lock Urinary Cath still in place: No Assessment/Plan Chief Complaint/Hosp Course (1) Debility with syncope Waiting for placement (2) Diastolic dysfunction Stable (3) COPD (chronic obstructive pulmonary disease) Stable (4) Essential hypertension Well-controlled (5) Coronary artery disease Stable Prophylaxis: On Plavix and aspirin Problems: Subjective 24 Hr Interval Summary Constitutional: no complaints Exam/Review of Systems Vital Signs Vitals Vital Signs Date Time Temp Pulse Resp B/P Pulse Ox O2 Delivery O2 Flow Rate FiO2 11/22/16 08:22 98.0 52 16 110/65 95 Intake and Output 11/21/16 11/21/16 11/22/16 15:00 23:00 07:00 Intake Total 680 ml 480 ml Output Total 200 ml Balance 480 ml 480 ml Exam Constitutional: alert Respiratory: clear to auscultation Cardiovascular: regular rate and rhythm Gastrointestinal: soft, No distended Musculoskeletal: nl extremities to inspection Results Result Diagram: 11/20/16 0506 11/20/16 0506 Medications Medications Current Medications Lorazepam (Ativan) 0.5 mg Q6H PRN IV ANXIETY; Start 11/10/16 at 13:00 Nitroglycerin (Nitroglycerin (Sl Tab) 0.4 Mg) 1 tab Q5M PRN SL ANGINA; Start at 13:00 Aspirin (Halfprin) 81 mg DAILY PO Last administered on 11/21/16 09:23; Admin Dose 81 MG; Start 11/11/16 at 09:00 Atorvastatin Calcium (Lipitor) 40 mg QHS PO Last administered on 11/21/16 20: 14; Admin Dose 40 MG; Start 11/10/16 at 21:00 Clopidogrel Bisulfate (plaVIX) 75 mg DAILY PO Last administered on 11/21/16 09 :24; Admin Dose 75 MG; Start 11/11/16 at 09:00 Isosorbide Mononitrate (Imdur) 30 mg DAILY PO Last administered on 11/20/16 09 :26; Admin Dose 30 MG; Start 11/11/16 at 09:00 Pantoprazole (Protonix Tab) 40 mg DAILY@06 PO Last administered on 11/20/16 06 :11; Admin Dose 40 MG; Start 11/11/16 at 06:00 Acetaminophen/ Hydrocodone Bitart ([place] (5/325)) 1 tab Q4H PRN PO PAIN LEVEL 4 -7; Start 11/10/16 at 16:00 Albuterol (Ventolin Hfa) 2 puff Q4H INH Last administered on 11/21/16 19:01; Admin Dose 2 PUFF; Start 11/10/16 at 18:30 Morphine Sulfate (morphine) 1 mg Q6H PRN IV PAIN Last administered on 15:45; Admin Dose 1 MG; Start 11/20/16 at 16:30 Theophylline (Mateusz-24) 200 mg QHS PO Last administered on 11/20/16 20:46; Admin Dose 200 MG; Start 11/20/16 at 21:00 Salmeterol Xinafoate/ Fluticasone (Advair 500/50 Diskus) 1 inh BID INH Last administered on 11/21/16 20:14; Admin Dose 1 INH; Start 11/20/16 at 21:00 Tiotropium [place] (Spiriva) 1 inh DAILY INH Last administered on 11/21/16 09: 23; Admin Dose 1 INH; Start 11/20/16 at 15:00 Meloxicam (Mobic) 15 mg DAILY PO Last administered on 11/20/16 17:59; Admin Dose 15 MG; Start 11/20/16 at 16:00 Metoprolol Succinate (Toprol Xl) 25 mg QAM PO ; Start 11/22/16 at 09:00 LEANN LOZANO November 22, 2016 17:37
[2016-11-22 20:28] VITALS: BP 118/61; RESP 18
[2016-11-22] MEDS: ATORVASTATIN 40 MG TAB PO SCH (22:07)
[2016-11-23] MEDS: morphine 2 MG INJ IV PRN ×3 (00:14→12:10)
[2016-11-23] MEDS: THEOPHYLLINE (SR) 200 MG CAPSR PO SCH (00:14)
[2016-11-23] MEDS: ALBUTEROL 18 GM INHALER INH SCH ×4 (02:30→15:20)
[2016-11-23] MEDS: PANTOPRAZOLE (EC) 40 MG TAB PO SCH (04:01)
[2016-11-23 08:39] VITALS: BP 116/62; RESP 20
[2016-11-23] MEDS: METOPROLOL (XL) 25 MG TAB PO SCH (09:00)
[2016-11-23] MEDS: TIOTROPIUM 18 MCG CAPSULE INHA DEV INH SCH (09:00)
[2016-11-23] MEDS: ISOSORBIDE MONONITRATE(SR)30 MG TAB PO SCH (09:00)
[2016-11-23] MEDS: SALMETEROL/FLUTICASONE 500/50 INHA INH SCH (10:10)
[2016-11-23] MEDS: ASPIRIN (EC) 81 MG TAB PO SCH (10:11)
[2016-11-23] MEDS: CLOPIDOGREL 75 MG TAB PO SCH (10:11)
[2016-11-23] MEDS: MELOXICAM 15 MG TAB PO SCH (10:12)
[2016-11-23] MEDS ORDERED: ADV10050 INHALATION (15:23)
[2016-11-23] MEDS ORDERED: ISOS30TA5 PO (15:23)
[2016-11-23] MEDS ORDERED: THEO200C3 PO (15:23)
[2016-11-23] MEDS ORDERED: TIOT18CA INH (15:23)
[2016-11-23] MEDS ORDERED: CLOP75TA28 PO (15:23)
[2016-11-23] MEDS ORDERED: HYDR-3498 PO (15:23)
[2016-11-23] MEDS ORDERED: METO25TA7 PO (15:23)
[2016-11-23] MEDS ORDERED: ASPI-664 PO (15:23)
--- NOTE | 2016-11-23 15:27 | PDOCDIS ---
Discharge Instructions DIAGNOSIS Discharge Diagnosis: 1. Reported syncope 2. Diastolic dysfunction 3. COPD 4. Hypertension CONDITION Patient Condition: Stable HOME CARE INSTRUCTIONS: Special Diet: Regular FOLLOW UP/APPOINTMENTS Appointments 1. Follow-up with your primary care provider within a week AYAN NIETO November 23, 2016 15:27
== END 2016-11-23 16:36 | disposition home or self-care (01) | DRG 65 ==
LOC: E/R 08:48 → MS4 12:57 → PP2 11-16 19:38
PROVIDERS: ADMIT Hospitalist; ATTEND Hospitalist
DX: I63.9 Cerebral infarction, unspecified (principal); G45.9 Transient cerebral ischemic attack, unspecified; I11.0 Hypertensive heart disease with heart failure; I50.30 Unspecified diastolic (congestive) heart failure; J44.9 Chronic obstructive pulmonary disease, unspecified; Z95.5 Presence of coronary angioplasty implant and graft; Z91.19 Patient's noncompliance with other medical treatment and regimen; I25.2 Old myocardial infarction; E78.00 Pure hypercholesterolemia, unspecified; Z87.891 Personal history of nicotine dependence; I25.10 Atherosclerotic heart disease of native coronary artery without angina pectoris; R53.81 Other malaise; Z79.82 Long term (current) use of aspirin; I49.9 Cardiac arrhythmia, unspecified
CPT/HCPCS: 36415; 70450; 71010; 80048; 80061; 81003; 82550; 82553; 83036; 84439; 84443; 84484; 85025; 85610; 85730; 93005; 93306; 93880; 97116; 97163; 97530; J1170; J2270; J7030; J7040

== ENCOUNTER 2017-03-18 07:58 | Inpatient (IN) | payer MEDICAID, OTHER ==
[~2017-03-18] VITALS: Ht 170.2 cm; Wt 77.2 kg
[~2017-03-18 07:58] MED LIST changes: -ASC500 PO; -CARV6.2579 PO; -CLOP75TA27 PO; +CLOP75TA28 PO; +HYDR-3498 PO; -HYDR-902 PO; +METO-335 PO; -PRED20TA PO; +THEO200C3 PO; +TIOT18CA INH; -UDROBDM PO
[2017-03-18] MEDS ORDERED: FUROSEMIDE 40 MG INJ IV STA (08:11)
[2017-03-18] MEDS ORDERED: NITROGLYCERIN 2% 1 GM OINT PKT TD STA (08:11)
--- NOTE | 2017-03-18 08:39 | RADRPT ---
PROCEDURE: XR Chest. CLINICAL INDICATION: chest pain TECHNIQUE: Single frontal view of the chest was obtained COMPARISON: CR CHEST 09/16/2016 FINDINGS: The heart and mediastinum are within normal limits. There are multiple calcified granulomas throughout the lungs. There is no focal infiltrate. There is no pleural effusion or pneumothorax. RPTAT: AA IMPRESSION: No acute disease. Unchanged multiple calcified granulomas. .Sudhakar Rincon MD, MD Date Time Electronically viewed and signed by .Sudhakar Rincon MD, on 03/18/2017 08:39 .S/
[2017-03-18 09:02] LABS: ALANINE AMINOTRANSFERASE 32 IU/L (13-69); ALBUMIN/GLOBULIN RATIO 1.21; ALKALINE PHOSPHATASE 170 IU/L (42-121); ANION GAP 16 (8-16); ASPARTATE AMINO TRANSFERASE 25 IU/L (15-46); BILIRUBIN,INDIRECT 0.2 mg/dl (0-1.1); BILIRUBIN,TOTAL 0.2 mg/dl (0.2-1.3); BLOOD UREA NITROGEN 12 mg/dl (7-20); CALCIUM 10.3 mg/dl (8.4-10.2); CARBON DIOXIDE 30 mmol/L (21-31); CHLORIDE 102 mmol/L (97-110); CREATININE 0.82 mg/dl (0.61-1.24); GLUCOSE 113 mg/dl (70-220); POTASSIUM 3.9 mmol/L (3.5-5.1); SODIUM 144 mmol/L (135-144); TOTAL PROTEIN 9.1 g/dl (6.1-8.1)
[2017-03-18 09:04] LABS: BASOPHILS % 0.5 % (0.0-2.0); EOSINOPHILS # 0.1 10^3/ul (0.0-0.5); EOSINOPHILS % 1.3 % (0.0-7.0); HEMATOCRIT 42.1 % (42.0-52.0); HEMOGLOBIN 14.1 g/dl (14.0-18.0); LYMPHOCYTES # 2.1 10^3/ul (0.8-2.9); LYMPHOCYTES % 38.5 % (15.0-51.0); MEAN CORPUSCULAR HEMOGLOBIN 32.2 pg (29.0-33.0); MEAN CORPUSCULAR HGB CONC 33.5 g/dl (32.0-37.0); MEAN CORPUSCULAR VOLUME 96.1 fl (82.0-101.0); MEAN PLATELET VOLUME 10.9 fl (7.4-10.4); MONOCYTE # 0.7 10^3/ul (0.3-0.9); MONOCYTES % 12.8 % (0.0-11.0); NEUTROPHIL # 2.6 10^3/ul (1.6-7.5); NEUTROPHILS % 46.7 % (39.0-77.0); PLATELET COUNT 324 10^3/UL (140-415); RED BLOOD COUNT 4.38 10^6/ul (4.70-6.10); RED CELL DISTRIBUTION WIDTH 13.6 % (11.5-14.5); WHITE BLOOD COUNT 5.5 10^3/ul (4.8-10.8)
[2017-03-18 09:09] LABS: INR 0.91; PROTIME 12.3 Sec (12.2-14.2)
[2017-03-18 09:10] LABS: PARTIAL THROMBOPLASTIN TIME 28.8 Sec (25.0-35.0)
[2017-03-18 09:13] LABS: B-TYPE NATRIURETIC PEPTIDE 148 PG/ML (0-125)
[2017-03-18 09:14] LABS: TROPONIN-I < 0.012 ng/ml (0.00-0.12)
[2017-03-18] MEDS ORDERED: ADV50050 INHALATION (09:20)
--- NOTE | 2017-03-18 09:26 | ERA ---
ER Documentation Chief Complaint Date/Time DATE: 03/18/17 TIME: 09:22 Chief Complaint BILATERAL LEG SWELLING X 1 WEEK HPI 61-year-old male, poor historian who presents to the emergency room complaining of chest pain and lower extremity swelling. He describes bilateral lower extremity swelling for 1 week with 2+ pitting edema. He also describes some PND. Mild dyspnea on exertion. He states an angiogram approximately 2 weeks ago at an outside hospital with stent deployment. He had chest pain earlier today that was pressure-like but no chest pain currently. He took aspirin. No fevers chills or cough, no pleuritic pain. ROS All systems reviewed and are negative except as per history of present illness. Medications Home Meds Active Scripts Isosorbide Mononitrate* (Isosorbide Mononitrate*) 30 Mg Tab.er.24h, 30 MG PO DAILY for 30 Days Prov:AYAN NIETO 11/23/16 Clopidogrel Bisulfate (Clopidogrel) 75 Mg Tablet, 75 MG PO DAILY for 30 Days, TAB Prov:AYAN NIETO 11/23/16 Aspirin* (Aspirin* EC) 81 Mg Tablet.dr, 81 MG PO DAILY for 30 Days Prov:AYAN NIETO 11/23/16 Reported Medications Salmeterol Xinaf-Fluticasone* (Advair*) 500/50 Diskus Inhaler, 1 INH INHALATION BID, #1 INHALER 03/18/17 Albuterol Sulfate* (Ventolin HFA*) 18 Gm Hfa.aer.ad, 2 PUFF INHALATION Q4H, #1 INHALER 09/16/16 Albuterol/Ipratropium* (Combivent Respimat*) 20-100 Mcg/Inh - 4 Gm Aer.w.adap, 1 PUFF INHALATION QID, #1 INHALER 09/16/16 Atorvastatin* (Atorvastatin*) 40 Mg Tablet, 40 MG PO QHS, #30 TAB 09/16/16 Pantoprazole* (Protonix*) 40 Mg Tablet.dr, 40 MG PO DAILY, TAB 07/27/16 Discontinued Scripts Hydrocodone Bit-Acetaminophen (Hydrocodone Bit-APAP) 5-325MG Tablet, 1 TAB PO Q4H Y for PAIN LEVEL 4-7, #30 TAB Prov:AYAN NIETO 11/23/16 Theophylline Anhydrous* (Mateusz-24*) 200 Mg Cap.sr.24h, 200 MG PO QHS for 30 Days Prov:AYAN NIETO 11/23/16 Tiotropium [place]* (Spiriva*) 18 Mcg Cap.w.dev, 1 INH INH DAILY for 30 Days Prov:AYAN NIETO 11/23/16 Metoprolol Succinate* (Toprol XL*) 25 Mg Tab.sr.24h, 25 MG PO QAM for 30 Days Prov:AYAN NIETO 11/23/16 Salmeterol Xinaf-Fluticasone* (Advair*) 100/50 Diskus Inhaler, 1 INH INHALATION BID, #1 INHALER Prov:AYAN NIETO 11/23/16 Allergies Allergies: Coded Allergies: Penicillins (Verified Allergy, Severe, 03/18/17) Iodine and Iodide Containing Produc (Verified Allergy, Unknown, 03/18/17) egg (Verified Allergy, Unknown, 03/18/17) Uncoded Allergies: mayonaise (Allergy, Unknown, 11/17/16) PMhx/Soc History of Surgery: Yes (angioplasty 2 weeks ago stent placed) Anesthesia Reaction: No Hx Neurological Disorder: No Hx Respiratory Disorders: Yes (copd) Hx Cardiac Disorders: Yes (angioplasty 2 weeks ago stent placed, angina) Hx Psychiatric Problems: No Hx Miscellaneous Medical Probl: No 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) Hx Substance Use: No Hx Tobacco Use: Yes Smoking Status: Former smoker FmHx Family History: No diabetes Physical Exam Vitals Vital Signs Date Time Temp Pulse Resp B/P Pulse Ox O2 Delivery O2 Flow Rate FiO2 03/18/17 08:52 Nasal Cannula 2 03/18/17 07:59 98.1 97 18 140/82 99 Physical Exam General: Well developed, well nourished, no acute distress Head: Normocephalic, atraumatic Eyes: Pupils equally reactive, EOM intact ENT: Moist mucous membranes Neck: Supple, no lymphadenopathy, mild JVD Respiratory: Rales at the bases bilaterally cardiovascular: RRR, no murmurs, rubs, or gallops Abdominal: Soft, non-tender, non-distended, no peritoneal signs : Deferred MSK: 2+ bilateral lower extremity pitting edema, no unilateral swelling, 5/5 strength Neurologic: Alert and oriented, moving all extremities, normal speech, no focal weakness, no cerebellar signs Skin: No rash Psych: Normal mood Result Diagram: 03/18/17 0820 03/18/17 0820 Results 24 hrs Laboratory Tests Test 03/18/17 08:20 White Blood Count 5.510^3/ul Red Blood Count 4.3810^6/ul Hemoglobin 14.1g/dl Hematocrit 42.1% Mean Corpuscular Volume 96.1fl Mean Corpuscular Hemoglobin 32.2pg Mean Corpuscular Hemoglobin Concent 33.5g/dl Red Cell Distribution Width 13.6% Platelet Count 61453^3/UL Mean Platelet Volume 10.9fl Neutrophils % 46.7% Lymphocytes % 38.5% Monocytes % 12.8% Eosinophils % 1.3% Basophils % 0.5% Nucleated Red Blood Cells % 0.0/100WBC Neutrophils # 2.610^3/ul Lymphocytes # 2.110^3/ul Monocytes # 0.710^3/ul Eosinophils # 0.110^3/ul Basophils # 0.010^3/ul Nucleated Red Blood Cells # 0.010^3/ul Prothrombin Time 12.3Sec Prothrombin Time Ratio 1.0 INR International Normalized Ratio 0.91 Activated Partial Thromboplast Time 28.8Sec Sodium Level 144mmol/L Potassium Level 3.9mmol/L Chloride Level 102mmol/L Carbon Dioxide Level 30mmol/L Anion Gap 16 Blood Urea Nitrogen 12mg/dl Creatinine 0.82mg/dl Glucose Level 113mg/dl Calcium Level 10.3mg/dl Total Bilirubin 0.2mg/dl Direct Bilirubin 0.00mg/dl Indirect Bilirubin 0.2mg/dl Aspartate Amino Transf (AST/SGOT) 25IU/L Alanine Aminotransferase (ALT/SGPT) 32IU/L Alkaline Phosphatase 170IU/L Troponin I < 0.012ng/ml B-Type Natriuretic Peptide 148PG/ML Total Protein 9.1g/dl Albumin 5.0g/dl Globulin 4.10g/dl Albumin/Globulin Ratio 1.21 Current Medications Medications (Trade) Dose Ordered Sig/Amanda Route PRN Reason Start Time Stop Time Status Last Admin Dose Admin Nitroglycerin (Nitroglycerin 2% Oint) 1 inch ONCE STAT TD 03/18/17 08:11 03/18/17 08:13 DC 03/18/17 08:44 Furosemide (Lasix) 40 mg ONCE STAT IV 03/18/17 08:11 03/18/17 08:13 DC 03/18/17 08:45 Ondansetron HCl (Zofran Inj) 4 mg ER BRIDGE PRN IV NAUSEA AND/OR VOMITING 03/18/17 09:30 03/19/17 09:29 Acetaminophen (Tylenol Tab) 650 mg ER BRIDGE PRN PO MILD PAIN/FEVER 03/18/17 09:30 03/19/17 09:29 Morphine Sulfate (morphine) 4 mg ONCE STAT IV 03/18/17 09:45 03/18/17 09:46 DC 03/18/17 09:50 Procedures/MDM EKG, MONITORS, & DIAGNOSTIC IMAGING: EKG: I reviewed and interpreted a 12-lead EKG. Rhythm: Normal sinus rhythm Ectopy: None Intervals: No abnormalities ST segments: No elevations or depressions T waves: No contiguous inversions Repeat EKG: EKG: I reviewed and interpreted a 12-lead EKG. Rhythm: Normal sinus rhythm Ectopy: None Intervals: No abnormalities ST segments: No elevations or depressions T waves: No contiguous inversions Chest x-ray: I reviewed and interpreted a 1 view of the chest Mediastinum: No enlargement Cardiac silhouette: cardiomegaly Airspace: Mild interstitial process concerning for pulmonary edema Bones: No evidence of fracture LAB INTERPRETATION: Negative troponin, borderline BNP MEDICAL DECISION MAKING: The patient's history, physical exam and clinical presentation is concerning for possible cardiogenic etiology and acute coronary syndrome and early, mild decompensated congestive heart failure Based on the patient's clinical exam and history and risk factors, I have a much lower clinical concern for pulmonary embolism, acute aortic dissection, pneumothorax, pneumonia, cardiac tamponade HEART Score: Greater than 4 MACE Rate: 16.6% Shared Decision Making: We had a conversation regarding risk stratification, MACE rate, and the risks, benefits, alternatives of disposition planning options. Disposition planning: Given the patient's cardiac history and evidence of mild heart failure inpatient hospitalization is strongly recommended ER COURSE: The patient was given Lasix, nitroglycerin provided. Aspirin taken prior to arrival. He is chest pain-free. No indication for nitroglycerin drip or positive pressure ventilation. I kept the patient and/or family informed of laboratory and diagnostic imaging results throughout the emergency room course. DISPOSITION PLAN: Telemetry admission for management of chest pain and CHF CONSULTATION: Accepting care team and consultations: I discussed the current laboratory data, diagnostic imaging and emergency care provided. Admitting team: Dr. Galaviz Admitting team indication: Insurance directed Departure Diagnosis: Primary Impression: Chest pain Qualified Code: R07.9 - Chest pain, unspecified type Additional Impression: Congestive heart failure Qualified Code: I50.9 - Acute on chronic congestive heart failure, unspecified congestive heart failure type Condition: Stable KAT COTE MD Mar 18, 2017 09:26
[2017-03-18] MEDS ORDERED: ACETAMINOPHEN 325 MG TAB PO PRN ×2 (09:30→12:30)
[2017-03-18] MEDS ORDERED: ONDANSETRON 4 MG INJ IV PRN ×2 (09:30→12:30)
[2017-03-18] MEDS ORDERED: morphine 4 MG/ML VIAL IV STA (09:45)
[2017-03-18 11:08] VITALS: TEMP 98
[2017-03-18 11:39] VITALS: Ht 170.2 cm; Wt 77.2 kg
[2017-03-18 11:54] VITALS: BP 108/68; RESP 20
[2017-03-18] MEDS ORDERED: ACETAMINOPHEN 650 MG SUPP PR PRN (12:30)
[2017-03-18] MEDS ORDERED: ALBUTEROL/IPRATROPIUM (NEB) 3 ML AMP HHN PRN (12:30)
[2017-03-18] MEDS ORDERED: NACL 0.9% 3 ML SYG IV SCH (12:30)
[2017-03-18] MEDS: ISOSORBIDE MONONITRATE(SR)30 MG TAB PO SCH (12:30)
[2017-03-18] MEDS: CLOPIDOGREL 75 MG TAB PO SCH (12:30)
[2017-03-18] MEDS: PANTOPRAZOLE (EC) 40 MG TAB PO SCH (12:30)
[2017-03-18] MEDS: ASPIRIN (EC) 81 MG TAB PO SCH (12:30)
[2017-03-18] MEDS: ENOXAPARIN 40 MG/0.4 ML SYG SC SCH (12:43)
[2017-03-18] MEDS: morphine 2 MG INJ IV PRN ×2 (12:44→20:00)
--- NOTE | 2017-03-18 12:49 | HP ---
Date/Time of Note Date/Time of Note DATE: 03/18/17 TIME: 12:38 Assessment/Plan VTE Prophylaxis VTE Prophylaxis Intervention: LMWH Lines/Catheters IV Catheter Type (from Nrs): Saline Lock Assessment/Plan Assessment/Plan This is a 61-year-old male who came to the emergency room for evaluation of worsening lower extremity swelling and left-sided chest pain. 1. Chest pain, reproducible.Appears non-anginal -Serial troponin, EKG to rule out ACS. -Cardiology consult as patient reported a history of recent stent and we will try to obtain medical records from [facility]. -Aspirin, Plavix, nitro sublingual PRN morphine PRN. 2. Peripheral edema with chronic vascular changes. Patient also has underlying diastolic dysfunction. Recent echo in November with preserved ejection fraction 60-65%. -Lasix IV -Obtain venous duplex to rule out DVT. 3. Hypertension. Stable. -Resume home medications 4. Coronary artery disease. -Resume home medications. Patient on aspirin and Plavix. 5. Dyslipidemia. -Resume statin 6. Asthma/COPD-not in exacerbation. -Seen home medications. DuoNeb PRN. 7. Diastolic heart failure. -Continue current medical management. 8. Progressive debility. -Patient refused nursing home alf. Currently he has DME available -Cecal therapy evaluation. 9. Possible Pain seeking behaviors. -We will appropriately dose pain medications. Patient was also counselled. DVT prophylaxis: Lovenox Plan: Patient will be started on a diet. We will rule out ACS with 3 sets of troponin, repeat EKG. We will follow-up with cardiology recommendations. We will also request social service evaluation. Approximately 60 minutes was spent on this history and physical. Patient was seen in collaboration with Dr. Galaviz. HPI/ROS Admit Date/Time Admit Date/Time Mar 18, 2017 at 09:28 Hx of Present Illness This is a 61-year-old male, poor historian with a medical history of chronic bilateral lower extremity cellulitis, hypertension, coronary artery disease, dyslipidemia, COPD, former smoker, who presented to the emergency room for evaluation of chest pain and lower extremity swelling which has been getting worse recently. He reports left-sided chest pain radiating to left arm. His pain gets worse upon touch and movement. Patient also reported that he had a recent coronary angiogram with stent placed at [facility] 2 weeks ago although it is uncertain if this information is accurate. Upon review of medical records, it is noted that patient had multiple ER visits to multiple hospitals. Patient denied palpitation, shortness of breath, dizziness, numbness , tingling, fever, chills, nausea, vomiting or other constitutional symptoms. Initial labs unremarkable. Initial troponin negative. Twelve-lead EKG without any ST or T-wave changes. Chest x-ray without any acute cardiopulmonary disease. There was unchanged multiple calcified granulomas. Vital signs within acceptable range. Patient was given 40 mg IV Lasix in the emergency room. ROS A 12 point review of system was assessed and is negative other than what is mentioned in the HPI. PMH/Family/Social Past Medical History See HPI Past Surgical History See HPI Social History Former smoker and alcohol use. Smoking Status: Former smoker Exam/Review of Systems Vital Signs Vitals Vital Signs Date Time Temp Pulse Resp B/P Pulse Ox O2 Delivery O2 Flow Rate FiO2 03/18/17 11:54 98.3 91 20 108/68 98 03/18/17 11:08 Room Air 03/18/17 08:52 2 Exam Exam General: Chronically ill looking, highly temperament male, not in any acute distress . HEENT: Normocephalic, Atraumatic, No laceration or hematoma; Eyes: PEERL, Conjunctiva clear, Anicteric sclera Neck: Supple without any lymphadenopathy, nontender, no JVD, no carotid bruits, trachea midline, no thyromegaly Cardiac: S1, S2 auscultated, regular rhythm and rate, no mumurs or gallop Pulmonary: Normal respiratory effort. Chest clear to auscultation bilaterally, no adventitious breath sounds GI: Abdomen normal to inspection. Soft, non tender, non- distended, no masses, no rebound tenderness or guarding. Bowel sounds active on all four quadrants Genitourinary: Deferred Extremities: With chronic lower extremity cellulitis and lymphedema. No cyanosis, clubbing, or edema. Pulses [2+] bilaterally. Full ROM on all four extremities. No focal weakness appreciated. Neurologic: With high temperament. Alert to person, place, time, and situation. Skin: With scabs on bilateral lower extremities. Dry/daily skin. Labs Result Diagram: 03/18/1781903/18/17819 Medications Medications Current Medications Ondansetron HCl (Zofran Inj) 4 mg Q6H PRN IV NAUSEA AND/OR VOMITING; Start at 12:30 Acetaminophen (Tylenol Tab) 650 mg Q6H PRN PO PAIN LEVEL 1-3 OR FEVER; Start at 12:30 Acetaminophen (Tylenol Supp) 650 mg Q6H PRN [place] PAIN LEVEL 1-3 OR FEVER; Start 03/18/17 at 12:30 Morphine Sulfate (morphine) 2 mg Q4H PRN IV SEVERE PAIN LEVEL 7-10; Start 03/18 at 12:30 Enoxaparin Sodium (Lovenox) 40 mg DAILY SC ; Start 03/19/17 at 09:00; Status UNV Aspirin (Halfprin) 81 mg DAILY PO ; Start 03/19/17 at 09:00; Status UNV Atorvastatin Calcium (Lipitor) 40 mg QHS PO ; Start 03/18/17 at 21:00 Clopidogrel Bisulfate (plaVIX) 75 mg DAILY PO ; Start 03/19/17 at 09:00; Status UNV Isosorbide Mononitrate (Imdur) 30 mg DAILY PO ; Start 03/18/17 at 12:30 Pantoprazole (Protonix Tab) 40 mg DAILY PO ; Start 03/19/17 at 09:00; Status UNV Salmeterol Xinafoate/ Fluticasone (Advair 500/50 Diskus) 1 inh BID INH ; Start 03/18/17 at 21:00 GIRISH LIPSCOMB NP Mar 18, 2017 12:49
[2017-03-18 13:10] LABS: CREATINE KINASE 153 IU/L (23-200)
[2017-03-18 13:23] LABS: CK-MB 1.62 ng/ml (0.0-2.4); TROPONIN-I < 0.012 ng/ml (0.00-0.12)
--- NOTE | 2017-03-18 15:19 | RADRPT ---
PROCEDURE: Ultrasound of the bilateral lower extremity venous system. CLINICAL INDICATION: Lower extremity edema. TECHNIQUE: Ramírez scale with and without compression, color doppler, spectral doppler of the venous system of the bilateral lower extremities was performed. Venous augmentation maneuvers were utilized . COMPARISON: No prior studies are available for comparison. FINDINGS: RIGHT: Common femoral vein:Patent and compressible. Femoral vein:Patent and compressible. Popliteal vein:Patent and compressible. Visualized calf veins:Patent and compressible. Soft tissues:Normal LEFT: Common femoral vein:Patent and compressible. Femoral vein:Patent and compressible. Popliteal vein:Patent and compressible. Visualized calf veins:Patent and compressible. Soft tissues:Normal IMPRESSION: 1. No evidence of deep vein thrombosis. RPTAT: [facility] Physician Tommie Date Time Electronically viewed and signed by Physician Tommie on 03/18/2017 15:19 /
[2017-03-18 15:32] VITALS: BP 95/62; RESP 19
[2017-03-18 17:03] VITALS: PULSE 66
[2017-03-18] MEDS: FUROSEMIDE 20 MG INJ IV SCH (17:43)
--- NOTE | 2017-03-18 19:24 | CONS ---
Date/Time of Note Date/Time of Note DATE: 03/18/17 TIME: 19:11 Assessment/Plan Assessment/Plan Chief Complaint/Hosp Course Assessment: Chest pain - ruled out for myocardial infarction, suspect malingering Coronary artery disease - patient reports coronary stenting two weeks ago, although it is uncertain if this information is accurate Hypertension Dyslipidemia Chronic obstructive pulmonary disease Bilateral lower extremity erythema and edema - cellulitis vs chronic venous stasis, management per primary team Recommendations: -echocardiogram 11/10/2016 showed LVEF 60-65%, mild LVH, grade 1 diastolic dysfunction - will not repeat at this time -Lexiscan SPECT 09/20/2016 negative - will not repeat coronary evaluation at this time -no further cardiac work up at this time -continue aspirin 81mg and clopidogrel 75mg daily -continue atorvastatin to 40mg daily -continue Imdur 30mg daily Problems: Consultation Date/Type/Reason Admit Date/Time Mar 18, 2017 at 09:28 Type of Consultation: Cardiology Reason for Consultation chest pain Hx of Present Illness The patient is a 61 year-old male who presents with a two day history of intermittent chest pain. He reports having a coronary stent placed at [facility] two weeks ago, although it is uncertain if this is accurate information. He also complains of bilateral lower extremity redness, swelling, and pain. EKG showed normal sinus rhythm with left ventricular hypertrophy, and no acute ischemic changes. Troponins have been negative x 2. The patient is known to me from multiple prior hospitalizations for similar complaints. During each of the prior hospitalizations, he had unverified reports of recent coronary stent implantation. He had a negative Lexiscan SPECT 09/20/2016 during a prior hospitalization. 14 point review of systems negative other than per HPI. Past Medical History Coronary artery disease Dyslipidemia Chronic obstructive pulmonary disease Nephrolithiasis History of posterior skull fracture Past Surgical History Cervical spine fusion Lumbar spine fusion Surgery for undescended testicles Tonsillectomy Family History Significant Family History: heart disease (myocardial infarction - mother, brother) Social History Alcohol Use: sober Smoking Status: Former smoker Exam/Review of Systems Vital Signs Vitals Vital Signs Date Time Temp Pulse Resp B/P Pulse Ox O2 Delivery O2 Flow Rate FiO2 03/18/17 17:03 66 03/18/17 16:00 Nasal Cannula 2.0 03/18/17 15:32 98.2 19 95/62 98 Exam Constitutional: alert, well developed Psych: nl mood/affect, no complaints Head: atraumatic, normocephalic Eyes: nl conjunctiva, nl lids ENMT: nl external ears & nose, nl nasal mucosa & septum Neck: non-tender, supple, No jvd Respiratory: wheezing Cardiovascular: regular rate and rhythm Gastrointestinal: non-tender, soft Musculoskeletal: nl extremities to inspection Extremities: edema (bilateral lower extremity), No clubbing, No cyanosis Neurological: nl mental status, nl speech Skin: other (bilateral lower extremity erythema) Results Result Diagram: 03/18/17 0820 03/18/17 0820 Results 24 hrs Laboratory Tests Test 03/18/17 08:20 03/18/17 12:35 White Blood Count 5.5 Red Blood Count 4.38 L Hemoglobin 14.1 Hematocrit 42.1 Mean Corpuscular Volume 96.1 Mean Corpuscular Hemoglobin 32.2 Mean Corpuscular Hemoglobin Concent 33.5 Red Cell Distribution Width 13.6 Platelet Count 324 # Mean Platelet Volume 10.9 H Neutrophils % 46.7 Lymphocytes % 38.5 Monocytes % 12.8 H Eosinophils % 1.3 Basophils % 0.5 Nucleated Red Blood Cells % 0.0 Neutrophils # 2.6 Lymphocytes # 2.1 Monocytes # 0.7 Eosinophils # 0.1 Basophils # 0.0 Nucleated Red Blood Cells # 0.0 Prothrombin Time 12.3 Prothrombin Time Ratio 1.0 INR International Normalized Ratio 0.91 Activated Partial Thromboplast Time 28.8 Sodium Level 144 Potassium Level 3.9 Chloride Level 102 Carbon Dioxide Level 30 Anion Gap 16 Blood Urea Nitrogen 12 Creatinine 0.82 Glucose Level 113 Calcium Level 10.3 H Total Bilirubin 0.2 Direct Bilirubin 0.00 Indirect Bilirubin 0.2 Aspartate Amino Transf (AST/SGOT) 25 Alanine Aminotransferase (ALT/SGPT) 32 Alkaline Phosphatase 170 H Troponin I < 0.012 < 0.012 B-Type Natriuretic Peptide 148 H Total Protein 9.1 H Albumin 5.0 H Globulin 4.10 H Albumin/Globulin Ratio 1.21 Creatine Kinase 153 Creatine Kinase Index 1.1 Creatinine Kinase MB (Mass) 1.62 Medications Medications Current Medications Ondansetron HCl (Zofran Inj) 4 mg Q6H PRN IV NAUSEA AND/OR VOMITING; Start at 12:30 Acetaminophen (Tylenol Tab) 650 mg Q6H PRN PO PAIN LEVEL 1-3 OR FEVER; Start at 12:30 Acetaminophen (Tylenol Supp) 650 mg Q6H PRN [place] PAIN LEVEL 1-3 OR FEVER; Start 03/18/17 at 12:30 Morphine Sulfate (morphine) 2 mg Q4H PRN IV SEVERE PAIN LEVEL 7-10 Last administered on 03/18/17 12:44; Admin Dose 2 MG; Start 03/18/17 at 12:30 Enoxaparin Sodium (Lovenox) 40 mg DAILY SC Last administered on 03/18/17 12:43 ; Admin Dose 40 MG; Start 03/18/17 at 12:30 Aspirin (Halfprin) 81 mg DAILY PO ; Start 03/18/17 at 12:30 Atorvastatin Calcium (Lipitor) 40 mg QHS PO ; Start 03/18/17 at 21:00 Clopidogrel Bisulfate (plaVIX) 75 mg DAILY PO ; Start 03/18/17 at 12:30 Isosorbide Mononitrate (Imdur) 30 mg DAILY PO ; Start 03/18/17 at 12:30 Pantoprazole (Protonix Tab) 40 mg DAILY@06 PO ; Start 03/18/17 at 12:30 Salmeterol Xinafoate/ Fluticasone (Advair 500/50 Diskus) 1 inh BID INH ; Start 03/18/17 at 21:00 EUSEBIA HAMILTON MD Mar 18, 2017 19:21
[2017-03-18 20:03] LABS: CREATINE KINASE 218 IU/L (23-200)
[2017-03-18 20:21] LABS: CK-MB 1.58 ng/ml (0.0-2.4); TROPONIN-I < 0.012 ng/ml (0.00-0.12)
[2017-03-18 20:28] VITALS: BP 104/68; RESP 18
[2017-03-18 20:38] VITALS: PULSE 68
[2017-03-18] MEDS: ATORVASTATIN 40 MG TAB PO SCH (20:42)
[2017-03-18] MEDS: SALMETEROL/FLUTICASONE 500/50 INHA INH SCH (20:42)
[2017-03-19] VITALS (16 sets, daily range): BP systolic 81–126; BP diastolic 53–72; PULSE 65–79; RESP 16–20
[2017-03-19 01:30] LABS: CREATINE KINASE 460 IU/L (23-200)
[2017-03-19 01:55] LABS: CK-MB 1.69 ng/ml (0.0-2.4); TROPONIN-I < 0.012 ng/ml (0.00-0.12)
[2017-03-19] MEDS: FUROSEMIDE 20 MG INJ IV SCH ×2 (05:50→17:29)
[2017-03-19] MEDS: PANTOPRAZOLE (EC) 40 MG TAB PO SCH (05:50)
[2017-03-19] MEDS: morphine 2 MG INJ IV PRN ×2 (05:55→09:57)
[2017-03-19 07:38] LABS: BASOPHILS % 0.5 % (0.0-2.0); EOSINOPHILS # 0.1 10^3/ul (0.0-0.5); EOSINOPHILS % 1.3 % (0.0-7.0); HEMATOCRIT 38.7 % (42.0-52.0); HEMOGLOBIN 12.5 g/dl (14.0-18.0); LYMPHOCYTES # 2.1 10^3/ul (0.8-2.9); LYMPHOCYTES % 34.2 % (15.0-51.0); MEAN CORPUSCULAR HEMOGLOBIN 31.2 pg (29.0-33.0); MEAN CORPUSCULAR HGB CONC 32.3 g/dl (32.0-37.0); MEAN CORPUSCULAR VOLUME 96.5 fl (82.0-101.0); MEAN PLATELET VOLUME 10.3 fl (7.4-10.4); MONOCYTE # 0.9 10^3/ul (0.3-0.9); MONOCYTES % 14.5 % (0.0-11.0); PLATELET COUNT 285 10^3/UL (140-415); RED BLOOD COUNT 4.01 10^6/ul (4.70-6.10); RED CELL DISTRIBUTION WIDTH 13.9 % (11.5-14.5); WHITE BLOOD COUNT 6.1 10^3/ul (4.8-10.8)
[2017-03-19 08:27] LABS: ALBUMIN 3.9 g/dl (3.3-4.9); ALBUMIN/GLOBULIN RATIO 1.21; BILIRUBIN,INDIRECT 0.3 mg/dl (0-1.1); BILIRUBIN,TOTAL 0.3 mg/dl (0.2-1.3); CALCIUM 9.5 mg/dl (8.4-10.2); CHOL/HDL RATIO 4.5 RATIO; PHOSPHORUS 4.3 mg/dl (2.5-4.9); POTASSIUM 3.9 mmol/L (3.5-5.1); TOTAL PROTEIN 7.1 g/dl (6.1-8.1)
[2017-03-19] MEDS: SALMETEROL/FLUTICASONE 500/50 INHA INH SCH ×2 (08:27→20:28)
[2017-03-19] MEDS: ASPIRIN (EC) 81 MG TAB PO SCH (08:28)
[2017-03-19] MEDS: CLOPIDOGREL 75 MG TAB PO SCH (08:28)
[2017-03-19] MEDS: ISOSORBIDE MONONITRATE(SR)30 MG TAB PO SCH (08:28)
[2017-03-19] MEDS: ENOXAPARIN 40 MG/0.4 ML SYG SC SCH (08:32)
[2017-03-19 09:24] LABS: THYROID STIMULATING HORMONE 0.455 MIU/L (0.465-4.680)
[2017-03-19 09:33] LABS: CREATINE KINASE 682 IU/L (23-200)
[2017-03-19 09:47] LABS: CK-MB 1.61 ng/ml (0.0-2.4); TROPONIN-I < 0.012 ng/ml (0.00-0.12)
--- NOTE | 2017-03-19 12:51 | PN ---
Date/Time of Note Date/Time of Note DATE: 03/19/17 TIME: 12:48 Assessment/Plan VTE Prophylaxis VTE Prophylaxis Intervention: LMWH Lines/Catheters IV Catheter Type (from Nrsg): Saline Lock Assessment/Plan Problems: (1) Chronic pain syndrome Status: Chronic Comment: Continue with the outpatient use of the [place]. I am going to back off on his morphine as were prepping him to go home. There is no further indication to keep him in the hospital past tomorrow morning. In fact the indications for the admission in general are somewhat thin (2) Onychomycosis Status: Chronic Comment: Lamisil pulse therapy (3) COPD (chronic obstructive pulmonary disease) Status: Chronic Comment: He is stable on his medication regimen for this Qualifiers: COPD type: unspecified COPD Qualified Code: J44.9 - Chronic obstructive pulmonary disease, unspecified COPD type (4) Chest pain Status: Acute Comment: This is chest wall pain. He has ruled out for myocardial infarction cardiology is seen and no further intervention indicated at this time Qualifiers: Chest pain type: unspecified Qualified Code: R07.9 - Chest pain, unspecified type (5) Essential hypertension Status: Chronic Comment: Adequate control Subjective 24 Hr Interval Summary Free Text/Dictation Angry male complaining that the morphine does not give him adequate pain relief. Constitutional: no complaints (Eyes fevers chills or sweats) Respiratory: no complaints Cardiovascular: no complaints Gastrointestinal: no complaints Musculoskeletal: back pain (He reports prior treatment with gabapentin was ineffective and that he uses [place] 04/05/2025's at home.) Exam/Review of Systems Vital Signs Vitals Vital Signs Date Time Temp Pulse Resp B/P Pulse Ox O2 Delivery O2 Flow Rate FiO2 03/19/17 12:22 Nasal Cannula 2.0 03/19/17 12:07 65 03/19/17 11:39 97.9 18 91/56 95 Intake and Output 03/18/17 03/18/17 03/19/17 15:00 23:00 07:00 Intake Total 300 ml Output Total 350 ml 700 ml 850 ml Balance -350 ml -700 ml -550 ml Exam Constitutional: alert, oriented Respiratory: clear to auscultation, normal air movement Cardiovascular: nl pulses, regular rate and rhythm Extremities: other (Significant onychomycosis and tinea) Results Result Diagram: 03/19/17 0723 03/19/17 0723 Results 24 hrs Laboratory Tests Test 03/18/17 18:50 03/19/17 01:00 03/19/17 07:23 Creatine Kinase 218 H 460 #H 682 H Creatine Kinase Index 0.7 0.4 0.2 Creatinine Kinase MB (Mass) 1.58 1.69 1.61 Troponin I < 0.012 < 0.012 < 0.012 White Blood Count 6.1 Red Blood Count 4.01 L Hemoglobin 12.5 L Hematocrit 38.7 L Mean Corpuscular Volume 96.5 Mean Corpuscular Hemoglobin 31.2 Mean Corpuscular Hemoglobin Concent 32.3 Red Cell Distribution Width 13.9 Platelet Count 285 Mean Platelet Volume 10.3 Neutrophils % 49.0 Lymphocytes % 34.2 Monocytes % 14.5 H Eosinophils % 1.3 Basophils % 0.5 Nucleated Red Blood Cells % 0.0 Neutrophils # 3.0 Lymphocytes # 2.1 Monocytes # 0.9 Eosinophils # 0.1 Basophils # 0.0 Nucleated Red Blood Cells # 0.0 Sodium Level 142 Potassium Level 3.9 Chloride Level 102 Carbon Dioxide Level 33 H Anion Gap 11 Blood Urea Nitrogen 21 H Creatinine 1.00 Glucose Level 109 Hemoglobin A1c 5.9 Calcium Level 9.5 Phosphorus Level 4.3 Magnesium Level 2.0 Total Bilirubin 0.3 Direct Bilirubin 0.00 Indirect Bilirubin 0.3 Aspartate Amino Transf (AST/SGOT) 22 Alanine Aminotransferase (ALT/SGPT) 29 Alkaline Phosphatase 127 H Total Protein 7.1 # Albumin 3.9 # Globulin 3.20 Albumin/Globulin Ratio 1.21 Triglycerides Level 129 Cholesterol Level 191 LDL Cholesterol, Calculated 123 HDL Cholesterol 42 Cholesterol/HDL Ratio 4.5 Thyroid Stimulating Hormone (TSH) 0.455 L Medications Medications Current Medications Ondansetron HCl (Zofran Inj) 4 mg Q6H PRN IV NAUSEA AND/OR VOMITING; Start at 12:30 Acetaminophen (Tylenol Tab) 650 mg Q6H PRN PO PAIN LEVEL 1-3 OR FEVER; Start at 12:30 Acetaminophen (Tylenol Supp) 650 mg Q6H PRN [place] PAIN LEVEL 1-3 OR FEVER; Start 03/18/17 at 12:30 Morphine Sulfate (morphine) 2 mg Q4H PRN IV SEVERE PAIN LEVEL 7-10 Last administered on 03/19/17t 09:57; Admin Dose 2 MG; Start 03/18/17 at 12:30 Enoxaparin Sodium (Lovenox) 40 mg DAILY SC Last administered on 03/18/17 12:43 ; Admin Dose 40 MG; Start 03/18/17 at 12:30 Aspirin (Halfprin) 81 mg DAILY PO Last administered on 03/19/17 08:28; Admin Dose 81 MG; Start 03/18/17 at 12:30 Atorvastatin Calcium (Lipitor) 40 mg QHS PO Last administered on 03/18/17 20: 42; Admin Dose 40 MG; Start 03/18/17 at 21:00 Clopidogrel Bisulfate (plaVIX) 75 mg DAILY PO Last administered on 03/19/17 08 :28; Admin Dose 75 MG; Start 03/18/17 at 12:30 Isosorbide Mononitrate (Imdur) 30 mg DAILY PO Last administered on 03/19/17 08 :28; Admin Dose 30 MG; Start 03/18/17 at 12:30 Pantoprazole (Protonix Tab) 40 mg DAILY@06 PO Last administered on 03/19/17 05 :50; Admin Dose 40 MG; Start 03/18/17 at 12:30 Salmeterol Xinafoate/ Fluticasone (Advair 500/50 Diskus) 1 inh BID INH Last administered on 03/19/17 08:27; Admin Dose 1 INH; Start 03/18/17 at 21:00 KATRIN VILLALPANDO MD Mar 19, 2017 12:51
[2017-03-19] MEDS: HYDROCODONE/APAP (10/325) TAB PO PRN ×2 (13:36→17:30)
[2017-03-19] MEDS: TERBINAFINE 250 MG TAB PO SCH ×2 (13:36→20:28)
[2017-03-19] MEDS: ATORVASTATIN 40 MG TAB PO SCH (20:28)
[2017-03-20] VITALS (10 sets, daily range): BP systolic 101–109; BP diastolic 53–66; PULSE 64–98; RESP 16–19
[2017-03-20] MEDS: PANTOPRAZOLE (EC) 40 MG TAB PO SCH (09:21)
[2017-03-20] MEDS: FUROSEMIDE 20 MG INJ IV SCH ×2 (09:22→17:52)
[2017-03-20] MEDS: SALMETEROL/FLUTICASONE 500/50 INHA INH SCH ×2 (09:22→20:24)
[2017-03-20] MEDS: ISOSORBIDE MONONITRATE(SR)30 MG TAB PO SCH (09:22)
[2017-03-20] MEDS: TERBINAFINE 250 MG TAB PO SCH ×2 (09:23→20:24)
[2017-03-20] MEDS: ASPIRIN (EC) 81 MG TAB PO SCH (09:23)
[2017-03-20] MEDS: CLOPIDOGREL 75 MG TAB PO SCH (09:23)
[2017-03-20] MEDS: ENOXAPARIN 40 MG/0.4 ML SYG SC SCH (09:28)
[2017-03-20] MEDS: HYDROCODONE/APAP (10/325) TAB PO PRN (09:31)
--- NOTE | 2017-03-20 10:50 | DS ---
Date/Time of Note Date/Time of Note DATE: 03/20/17 TIME: 10:47 Discharge Summary Admission/Discharge Info Admit Date/Time Mar 18, 2017 at 09:28 Discharge Date/Time March 20, 2017 Discharge Diagnosis Atypical chest pain-chest wall pain; OPD; hypertension; diastolic dysfunction; chronic pain syndrome; lumbar disc disease Patient Condition: Fair Consults Cardiology Procedures Lower extremity venous studies: Rule out [place] protocol Hx of Present Illness This is a 61-year-old male, poor historian with a medical history of chronic bilateral lower extremity cellulitis, hypertension, coronary artery disease, dyslipidemia, COPD, former smoker, who presented to the emergency room for evaluation of chest pain and lower extremity swelling which has been getting worse recently. He reports left-sided chest pain radiating to left arm. His pain gets worse upon touch and movement. Patient also reported that he had a recent coronary angiogram with stent placed at [facility] 2 weeks ago. Upon review of medical records, it is noted that patient had multiple ER visits to multiple hospitals. Patient denied palpitation, shortness of breath, dizziness, numbness, tingling, fever, chills, nausea, vomiting or other constitutional symptoms. Initial labs unremarkable. Initial troponin negative. Twelve-lead EKG without any ST or T-wave changes. Chest x-ray without any acute cardiopulmonary disease. There was unchanged multiple calcified granulomas. Vital signs within acceptable range. Patient was given 40 mg IV Lasix in the emergency room. Hospital Course Assessment: Chest pain - ruled out for myocardial infarction, suspect malingering Coronary artery disease - patient reports coronary stenting two weeks ago, although it is uncertain if this information is accurate Hypertension Dyslipidemia Chronic obstructive pulmonary disease Bilateral lower extremity erythema and edema - cellulitis vs chronic venous stasis, management per primary team Recommendations: -echocardiogram 11/10/2016 showed LVEF 60-65%, mild LVH, grade 1 diastolic dysfunction - will not repeat at this time -Lexiscan SPECT 09/20/2016 negative - will not repeat coronary evaluation at this time -no further cardiac work up at this time -continue aspirin 81mg and clopidogrel 75mg daily -continue atorvastatin to 40mg daily -continue Imdur 30mg daily 61-year-old male who came into the hospital for what was described as chest pain. This was reportable chest wall pain on examination. The C1 through formalized rule out [place] protocol was seen by cardiology whose notes are above. He is now stable for discharge. Please note the patient is angling for pain medications. In my assessment of him I do not believe that additional medications are not needed. I have offered him medications for neuropathic pain which she refuses. At this time he is stable for discharge. He has no known chemical diseases his rehabilitation potential is limited based on his chronic pain syndrome and noncooperation. Home Meds Active Scripts Isosorbide Mononitrate* (Isosorbide Mononitrate*) 30 Mg Tab.er.24h, 30 MG PO DAILY for 30 Days Prov:AYAN NIETO 11/23/16 Clopidogrel Bisulfate (Clopidogrel) 75 Mg Tablet, 75 MG PO DAILY for 30 Days, TAB Prov:AYAN NIETO 11/23/16 Aspirin* (Aspirin* EC) 81 Mg Tablet.dr, 81 MG PO DAILY for 30 Days Prov:AYAN NIETO 11/23/16 Reported Medications Salmeterol Xinaf-Fluticasone* (Advair*) 500/50 Diskus Inhaler, 1 INH INHALATION BID, #1 INHALER 03/18/17 Albuterol Sulfate* (Ventolin HFA*) 18 Gm Hfa.aer.ad, 2 PUFF INHALATION Q4H, #1 INHALER 09/16/16 Albuterol/Ipratropium* (Combivent Respimat*) 20-100 Mcg/Inh - 4 Gm Aer.w.adap, 1 PUFF INHALATION QID, #1 INHALER 09/16/16 Atorvastatin* (Atorvastatin*) 40 Mg Tablet, 40 MG PO QHS, #30 TAB 09/16/16 Pantoprazole* (Protonix*) 40 Mg Tablet.dr, 40 MG PO DAILY, TAB 07/27/16 Discontinued Scripts Hydrocodone Bit-Acetaminophen (Hydrocodone Bit-APAP) 5-325MG Tablet, 1 TAB PO Q4H Y for PAIN LEVEL 4-7, #30 TAB Prov:AYAN NIETO 11/23/16 Theophylline Anhydrous* (Mateusz-24*) 200 Mg Cap.sr.24h, 200 MG PO QHS for 30 Days Prov:AYAN NIETO 11/23/16 Tiotropium Newcomb* (Spiriva*) 18 Mcg Cap.w.dev, 1 INH INH DAILY for 30 Days Prov:AYAN NIETO 11/23/16 Metoprolol Succinate* (Toprol XL*) 25 Mg Tab.sr.24h, 25 MG PO QAM for 30 Days Prov:AYAN NIETO 11/23/16 Salmeterol Xinaf-Fluticasone* (Advair*) 100/50 Diskus Inhaler, 1 INH INHALATION BID, #1 INHALER Prov:AYAN NIETO 11/23/16 Primary Care Provider Not On Staff Doctor Time spent on discharge: > 30 minutes KATRIN VILLALPANDO MD Mar 20, 2017 10:50
--- NOTE | 2017-03-20 10:51 | PDOCDIS ---
Discharge Instructions DIAGNOSIS Discharge Diagnosis Atypical chest pain-chest wall pain; OPD; hypertension; diastolic dysfunction; chronic pain syndrome; lumbar disc disease CONDITION Patient Condition: Fair HOME CARE INSTRUCTIONS: Diet Instructions: Regular ACTIVITY: Activity Restrictions: Slowly Increase Activity No Sexual Activity Do not operate Machinery Do not operate Power Tool FOLLOW UP/APPOINTMENTS Follow-up Plan With primary care physician in 1-2 weeks. SCHOOL/WORK RELEASE May return to School/Work with: With Restrictions KATRIN VILLALPANDO MD Mar 20, 2017 10:51
[2017-03-20] MEDS ORDERED: TERB250T46 PO (10:52)
--- NOTE | 2017-03-20 15:46 | RADRPT ---
Vent Rate: 69 bpm RR Interval: 0 msec VT Interval: 164 msec QRS Duration: 82 msec QT Interval: 384 msec QTC Interval: 411 msec P-R-T Rover: 17 - 7 - -4 degrees Normal sinus rhythm Moderate voltage criteria for LVH, may be normal variant ST elevation, consider early repolarization, pericarditis, or injury Nonspecific T wave abnormality Abnormal ECG Electronically Signed By: Fahad Graham [id number]
--- NOTE | 2017-03-20 16:32 | CONS ---
Date/Time of Note Date/Time of Note DATE: 03/20/17 TIME: 16:31 Assessment/Plan Assessment/Plan Chief Complaint/Hosp Course Assessment: Chest pain - ruled out for myocardial infarction, suspect malingering Coronary artery disease - patient reports coronary stenting two weeks ago, although it is uncertain if this information is accurate Hypertension Dyslipidemia Chronic obstructive pulmonary disease Bilateral lower extremity erythema and edema - cellulitis vs chronic venous stasis, management per primary team Recommendations: -echocardiogram 11/10/2016 showed LVEF 60-65%, mild LVH, grade 1 diastolic dysfunction - will not repeat at this time -Lexiscan SPECT 09/20/2016 negative - will not repeat coronary evaluation at this time -no further cardiac work up at this time -continue aspirin 81mg and clopidogrel 75mg daily -continue atorvastatin to 40mg daily -continue Imdur 30mg daily Problems: Consultation Date/Type/Reason Admit Date/Time Mar 18, 2017 at 09:28 Initial Consult Date Type of Consultation: Cardiology 24 HR Interval Summary Free Text/Dictation No acute events. Detailed Summary Additional Comments 14 point review of systems without changes. Exam/Review of Systems Vital Signs Vitals Vital Signs Date Time Temp Pulse Resp B/P Pulse Ox O2 Delivery O2 Flow Rate FiO2 03/20/17 16:07 65 03/20/17 15:38 98.3 16 109/66 98 03/20/17 08:05 Nasal Cannula 2.0 Intake and Output 03/19/17 03/19/17 03/20/17 15:00 23:00 07:00 Intake Total 1250 ml 60 ml Output Total 400 ml Balance 850 ml 60 ml Exam Constitutional: alert, well developed Psych: nl mood/affect, no complaints Head: atraumatic, normocephalic Eyes: nl conjunctiva, nl lids ENMT: nl external ears & nose, nl nasal mucosa & septum Neck: non-tender, supple, No jvd Respiratory: wheezing Cardiovascular: regular rate and rhythm Gastrointestinal: non-tender, soft Musculoskeletal: nl extremities to inspection Extremities: edema (bilateral lower extremity), No clubbing, No cyanosis Neurological: nl mental status, nl speech Skin: other (bilateral lower extremity erythema) Results Result Diagram: 03/19/17 0723 03/19/17 0723 Medications Medications Current Medications Ondansetron HCl (Zofran Inj) 4 mg Q6H PRN IV NAUSEA AND/OR VOMITING; Start at 12:30 Acetaminophen (Tylenol Tab) 650 mg Q6H PRN PO PAIN LEVEL 1-3 OR FEVER; Start at 12:30 Acetaminophen (Tylenol Supp) 650 mg Q6H PRN [place] PAIN LEVEL 1-3 OR FEVER; Start 03/18/17 at 12:30 Enoxaparin Sodium (Lovenox) 40 mg DAILY SC Last administered on 03/20/17 09:28 ; Admin Dose 40 MG; Start 03/18/17 at 12:30 Aspirin (Halfprin) 81 mg DAILY PO Last administered on 03/20/17 09:23; Admin Dose 81 MG; Start 03/18/17 at 12:30 Atorvastatin Calcium (Lipitor) 40 mg QHS PO Last administered on 03/19/17 20: 28; Admin Dose 40 MG; Start 03/18/17 at 21:00 Clopidogrel Bisulfate (plaVIX) 75 mg DAILY PO Last administered on 03/20/17 09 :23; Admin Dose 75 MG; Start 03/18/17 at 12:30 Isosorbide Mononitrate (Imdur) 30 mg DAILY PO Last administered on 03/20/17 09 :22; Admin Dose 30 MG; Start 03/18/17 at 12:30 Pantoprazole (Protonix Tab) 40 mg DAILY@06 PO Last administered on 03/20/17 09 :21; Admin Dose 40 MG; Start 03/18/17 at 12:30 Salmeterol Xinafoate/ Fluticasone (Advair 500/50 Diskus) 1 inh BID INH Last administered on 03/20/17 09:22; Admin Dose 1 INH; Start 03/18/17 at 21:00 Acetaminophen/ Hydrocodone Bitart ([place] (10/325)) 1 tab Q6H PRN PO PAIN LEVEL 4-6 Last administered on 03/20/17 09:31; Admin Dose 1 TAB; Start 03/19/17 at 13 :00 Terbinafine HCl (Lamisil) 250 mg BID PO Last administered on 03/20/17 09:23; Admin Dose 250 MG; Start 03/19/17 at 14:00 EUSEBIA HAMILTON MD Mar 20, 2017 16:32
[2017-03-20] MEDS: ATORVASTATIN 40 MG TAB PO SCH (20:24)
[2017-03-21 00:05] VITALS: BP 109/58; PULSE 66; RESP 19
[2017-03-21 04:07] VITALS: PULSE 69
[2017-03-21] MEDS: PANTOPRAZOLE (EC) 40 MG TAB PO SCH (06:30)
[2017-03-21] MEDS: FUROSEMIDE 20 MG INJ IV SCH (06:31)
[2017-03-21 08:00] VITALS: BP 123/62; RESP 18
[2017-03-21 08:20] VITALS: PULSE 60
[2017-03-21] MEDS: ISOSORBIDE MONONITRATE(SR)30 MG TAB PO SCH (09:49)
[2017-03-21] MEDS: TERBINAFINE 250 MG TAB PO SCH (09:49)
[2017-03-21] MEDS: SALMETEROL/FLUTICASONE 500/50 INHA INH SCH (09:49)
[2017-03-21] MEDS: ASPIRIN (EC) 81 MG TAB PO SCH (09:49)
[2017-03-21] MEDS: CLOPIDOGREL 75 MG TAB PO SCH (09:49)
[2017-03-21] MEDS: ENOXAPARIN 40 MG/0.4 ML SYG SC SCH (09:50)
[2017-03-21 11:54] VITALS: BP 110/58; RESP 18
[2017-03-21 12:10] VITALS: PULSE 75
== END 2017-03-21 14:15 | disposition home or self-care (01) | DRG 313 ==
LOC: E/R 07:58 → MS4 09:28
PROVIDERS: ADMIT Internal Medicine; ATTEND Internal Medicine
DX: R07.89 Other chest pain (principal); I25.10 Atherosclerotic heart disease of native coronary artery without angina pectoris; I11.0 Hypertensive heart disease with heart failure; I50.30 Unspecified diastolic (congestive) heart failure; E78.5 Hyperlipidemia, unspecified; B35.1 Tinea unguium; M51.86 Other intervertebral disc disorders, lumbar region; J44.9 Chronic obstructive pulmonary disease, unspecified; Z76.5 Malingerer [conscious simulation]; R53.81 Other malaise; Z82.49 Family history of ischemic heart disease and other diseases of the circulatory system; G89.29 Other chronic pain; R60.9 Edema, unspecified; L53.9 Erythematous condition, unspecified
CPT/HCPCS: 36415; 71010; 80053; 80061; 82550; 82553; 83036; 83735; 83880; 84100; 84443; 84484; 85025; 85610; 85730; 93005; 93970; 96374; 96375; 97162; J1940; J1650; J2270

== ENCOUNTER 2017-06-22 21:47 | Emergency (ER) | payer MEDICAID, OTHER ==
[~2017-06-22] VITALS: Ht 170.2 cm; Wt 77.0 kg
[~2017-06-22 21:47] MED LIST changes: -ADV10050 INHALATION; +ADV50050 INHALATION; -HYDR-3498 PO; -METO-335 PO; +TERB250T46 PO; -THEO200C3 PO; -TIOT18CA INH
[2017-06-22 21:51] VITALS: Ht 170.2 cm; Wt 77.0 kg
[2017-06-22] MEDS ORDERED: ONDANSETRON 4 MG INJ IV STA (22:26)
[2017-06-22] MEDS ORDERED: HYDROmorphONE 2 MG TAB PO ONE (22:30)
[2017-06-22 23:20] LABS: ALBUMIN 3.7 g/dl (3.3-4.9); ALBUMIN/GLOBULIN RATIO 1.23; CALCIUM 9.3 mg/dl (8.4-10.2); CREATININE 0.83 mg/dl (0.61-1.24); POTASSIUM 4.1 mmol/L (3.5-5.1); TOTAL PROTEIN 6.7 g/dl (6.1-8.1)
[2017-06-22 23:33] LABS: BASOPHILS % 0.1 % (0.0-2.0); EOSINOPHILS % 0.4 % (0.0-7.0); HEMATOCRIT 31.1 % (42.0-52.0); HEMOGLOBIN 10.4 g/dl (14.0-18.0); LYMPHOCYTES % 21.9 % (15.0-51.0); MEAN CORPUSCULAR HEMOGLOBIN 32.1 pg (29.0-33.0); MEAN CORPUSCULAR HGB CONC 33.4 g/dl (32.0-37.0); MEAN PLATELET VOLUME 10.4 fl (7.4-10.4); MONOCYTES % 10.9 % (0.0-11.0); NEUTROPHIL # 5.9 10^3/ul (1.6-7.5); PLATELET COUNT 303 10^3/UL (140-415); RED BLOOD COUNT 3.24 10^6/ul (4.70-6.10); RED CELL DISTRIBUTION WIDTH 13.7 % (11.5-14.5); WHITE BLOOD COUNT 8.9 10^3/ul (4.8-10.8)
--- NOTE | 2017-06-23 00:14 | ERD ---
ER Documentation Chief Complaint Chief Complaint right flank pain uncontrolled; hx kidney stones x 3 years HPI This is 62-year-old male with a history of renal stones is complaining of an exacerbation with sharp right flank pain radiating to the right lower abdomen onset 45 minutes ago. Patient has nausea but no vomiting no diarrhea no hematuria no dysuria. The pain is constant. Patient says the pain is exactly like his prior kidney stones. ROS All systems reviewed and are negative except as per history of present illness. Medications Home Meds Active Scripts Terbinafine* (Lamisil*) 250 Mg Tablet, 250 MG PO BID for 6 Days, TAB Prov:KATRIN VILLALPANDO MD 03/20/17 Isosorbide Mononitrate* (Isosorbide Mononitrate*) 30 Mg Tab.er.24h, 30 MG PO DAILY for 30 Days Prov:AYAN NIETO 11/23/16 Clopidogrel Bisulfate (Clopidogrel) 75 Mg Tablet, 75 MG PO DAILY for 30 Days, TAB Prov:AYAN NIETO 11/23/16 Aspirin* (Aspirin* EC) 81 Mg Tablet.dr, 81 MG PO DAILY for 30 Days Prov:AYAN NIETO 11/23/16 Reported Medications Salmeterol Xinaf-Fluticasone* (Advair*) 500/50 Diskus Inhaler, 1 INH INHALATION BID, #1 INHALER 03/18/17 Albuterol Sulfate* (Ventolin HFA*) 18 Gm Hfa.aer.ad, 2 PUFF INHALATION Q4H, #1 INHALER 09/16/16 Albuterol/Ipratropium* (Combivent Respimat*) 20-100 Mcg/Inh - 4 Gm Aer.w.adap, 1 PUFF INHALATION QID, #1 INHALER 09/16/16 Atorvastatin* (Atorvastatin*) 40 Mg Tablet, 40 MG PO QHS, #30 TAB 09/16/16 Pantoprazole* (Protonix*) 40 Mg Tablet.dr, 40 MG PO DAILY, TAB 07/27/16 Allergies Allergies: Coded Allergies: Penicillins (Verified Allergy, Severe, 03/18/17) Iodine and Iodide Containing Produc (Verified Allergy, Unknown, 03/18/17) egg (Verified Allergy, Unknown, 03/18/17) PMhx/Soc History of Surgery: Yes Anesthesia Reaction: No Hx Neurological Disorder: No Hx Respiratory Disorders: Yes (copd, former smoker) Hx Cardiac Disorders: Yes (angina) Hx Psychiatric Problems: No Hx Miscellaneous Medical Probl: Yes (see PT note) Hx Alcohol Use: No Hx Substance Use: No Hx Tobacco Use: Yes (3 cigs/ day) Smoking Status: Current every day smoker FmHx Family History: No coronary disease Physical Exam Vitals Vital Signs Date Time Temp Pulse Resp B/P Pulse Ox O2 Delivery O2 Flow Rate FiO2 06/23/17 00:25 86 18 118/70 96 Room Air 06/22/17 21:51 97.7 103 20 132/68 97 Physical Exam Const: Well-developed, well-nourished Head: Atraumatic, normocephalic Eyes: Normal Conjunctiva, PERRLA, EOMI, normal sclera, no nystagmus ENT: Normal External Ears, Nose and Mouth, moist mucus membranes. Neck: Full range of motion. No meningismus, no lymphadenopathy. Resp: Clear to auscultation bilaterally, no wheezing, rhonchi, rales Cardio: Regular rate and rhythm, no murmurs, S1 S2 present Abd: Soft, non tender x 4, non distended. Normal bowel sounds, no guarding or rebound, no pulsitile abdominal masses or bruits Skin: No petechiae or rashes, no ecchymosis , no maculopapular rash Back: Right CVA tenderness mild Ext: No cyanosis, or edema, FROM x 4, normal inspection, neurovascularly intact x 4 Neur: Awake and alert, STR 5/5 x 4, sensation intact x 4, no focal findings, cerebellum intact Psych: Normal Mood and Affect Result Diagram: 06/22/17 2311 06/22/17 2215 Results 24 hrs Laboratory Tests Test 06/22/17 22:15 06/22/17 23:11 Sodium Level 142mmol/L Potassium Level 4.1mmol/L Chloride Level 104mmol/L Carbon Dioxide Level 28mmol/L Anion Gap 14 Blood Urea Nitrogen 17mg/dl Creatinine 0.83mg/dl Glucose Level 104mg/dl Calcium Level 9.3mg/dl Total Bilirubin 0.0mg/dl Direct Bilirubin 0.00mg/dl Indirect Bilirubin 0.0mg/dl Aspartate Amino Transf (AST/SGOT) 16IU/L Alanine Aminotransferase (ALT/SGPT) 33IU/L Alkaline Phosphatase 148IU/L Total Protein 6.7g/dl Albumin 3.7g/dl Globulin 3.00g/dl Albumin/Globulin Ratio 1.23 White Blood Count 8.910^3/ul Red Blood Count 3.2410^6/ul Hemoglobin 10.4g/dl Hematocrit 31.1% Mean Corpuscular Volume 96.0fl Mean Corpuscular Hemoglobin 32.1pg Mean Corpuscular Hemoglobin Concent 33.4g/dl Red Cell Distribution Width 13.7% Platelet Count 00301^3/UL Mean Platelet Volume 10.4fl Neutrophils % 66.0% Lymphocytes % 21.9% Monocytes % 10.9% Eosinophils % 0.4% Basophils % 0.1% Nucleated Red Blood Cells % 0.0/100WBC Neutrophils # 5.910^3/ul Lymphocytes # 2.010^3/ul Monocytes # 1.010^3/ul Eosinophils # 0.010^3/ul Basophils # 0.010^3/ul Nucleated Red Blood Cells # 0.010^3/ul Current Medications Medications (Trade) Dose Ordered Sig/Amanda Route PRN Reason Start Time Stop Time Status Last Admin Dose Admin Ondansetron HCl (Zofran Inj) 4 mg ONCE STAT IV 06/22/17 22:26 06/22/17 22:29 DC 06/22/17 23:06 Hydromorphone HCl (Dilaudid) 2 mg ONCE ONCE PO 06/22/17 22:30 06/22/17 22:31 DC 06/22/17 23:05 Procedures/MDM PROCEDURE: CT Abdomen and Pelvis without contrast. CLINICAL INDICATION: Right flank pain. TECHNIQUE: A CT scan of the abdomen and pelvis was performed without intravenous contrast. Coronal and sagittal reformatted images were generated. DICOM images are available. Images were reviewed on a high-resolution PACS workstation. CTDIvol: 17.34 mGy. DLP: 1045.53 mGy-cm. One or more of the following dose reduction techniques were used: - Automated exposure control. - Adjustment of the mA and/or kV according to patient size. - Use of iterative reconstruction technique. COMPARISON: None. FINDINGS: There is a calcified granuloma in the left lower lobe. Evaluation of the abdominal and pelvic viscera is limited by the lack of oral and intravenous contrast. The liver is unremarkable. The gallbladder is contracted. The common bile duct is not dilated. The spleen is not enlarged. No pancreatic lesion is identified and there is no pancreatic ductal dilatation. The adrenal glands are unremarkable. The kidneys are normal in size. There is no perinephric fat stranding. No hydronephrosis is seen. There are nonobstructing stones in both kidneys measuring up to 4 mm on the right. The small and large bowel are normal in caliber. There is no bowel wall thickening. The appendix is normal. The urinary bladder is unremarkable. The prostate gland is enlarged. No lymphadenopathy is identified. There is no ascites. No pneumoperitoneum is seen. There are mild arterial calcifications. No suspicious osseous lesion is idenitified. 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 There is a mild chronic L5 compression fracture. IMPRESSION: 1. No inflammation, mass, or lymphadenopathy. 2. No hydronephrosis. There are nonobstructing stones in both kidneys measuring up to 4 mm on the right. 3. Normal appendix. 4. Enlarged prostate gland. Correlation with PSA level is recommended. 5. Mild atherosclerotic arterial calcifications. 6. Status post vertebroplasty at L2. There is a mild chronic L5 compression fracture. RPTAT: HTAR .Jean-Claude Garcia MD, MD Date Time Electronically viewed and signed by .Jean-Claude Garcia MD, on 06/23/2017 00:28 .R/ CC: TONI FAIRCHILD DO Patient's labs relatively unremarkable. Patient feels better after pain medication. Patient has some evidence of bilateral intrarenal stones 4 mm on the right. Slightly of the stone is moved somewhat in the kidney but there is no evidence of intra-ureter stone. We will discharge the patient home with Flomax and pain medicine Departure Diagnosis: Primary Impression: Renal colic on right side Condition: Stable TONI FAIRCHILD DO Jun 23, 2017 00:14
--- NOTE | 2017-06-23 00:29 | RADRPT ---
PROCEDURE: CT Abdomen and Pelvis without contrast. CLINICAL INDICATION: Right flank pain. TECHNIQUE: A CT scan of the abdomen and pelvis was performed without intravenous contrast. [place] l and sagittal reformatted images were generated. DICOM images are available. Images were reviewed o n a high-resolution PACS workstation. CTDIvol: 17.34 mGy. DLP: 1045.53 mGy-cm. One or more of the following dose reduction techniques were used: - Automated exposure control. - Adjustment of the mA and/or kV according to patient size. - Use of iterative reconstruction technique. COMPARISON: None. FINDINGS: There is a calcified granuloma in the left lower lobe. Evaluation of the abdominal and pelvic viscera is limited by the lack of oral and intravenous contra st. The liver is unremarkable. The gallbladder is contracted. The common bile duct is not dilated. The spleen is not enlarged. No pancreatic lesion is identified and there is no pancreatic ductal dilatat ion. The adrenal glands are unremarkable. The kidneys are normal in size. There is no perinephric fat stranding. No hydronephrosis is seen. Th ere are nonobstructing stones in both kidneys measuring up to 4 mm on the right. The small and large bowel are normal in caliber. There is no bowel wall thickening. The appendix is normal. The urinary bladder is unremarkable. The prostate gland is enlarged. No lymphadenopathy is identified. There is no ascites. No pneumoperitoneum is seen. There are mild a rterial calcifications. No suspicious osseous lesion is idenitified. 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 There is a mild chronic L5 compression fracture. IMPRESSION: 1. No inflammation, mass, or lymphadenopathy. 2. No hydronephrosis. There are nonobstructing stones in both kidneys measuring up to 4 mm on the r ight. 3. Normal appendix. 4. Enlarged prostate gland. Correlation with PSA level is recommended. 5. Mild atherosclerotic arterial calcifications. 6. Status post vertebroplasty at L2. There is a mild chronic L5 compression fracture. RPTAT: HTAR .Jean-Claude Garcia MD, MD Date Time Electronically viewed and signed by .Jean-Claude Garcia MD, on 06/23/2017 00:28 .R/
[2017-06-23] MEDS ORDERED: TAMS-14 PO (02:35)
[2017-06-23] MEDS ORDERED: HYDR-902 PO (02:35)
[2017-06-23 03:03] VITALS: BP 126/73; PULSE 83; RESP 16; TEMP 98.1
== END 2017-06-23 03:08 | disposition home or self-care (01) ==
LOC: EDBD 21:47 → E/R 21:47
DX: N23 Unspecified renal colic (principal); J44.9 Chronic obstructive pulmonary disease, unspecified; F17.210 Nicotine dependence, cigarettes, uncomplicated; Z79.82 Long term (current) use of aspirin
CPT/HCPCS: 36415; 74176; 80053; 85025; 96374; J1170; J2405; Z7502

== ENCOUNTER 2017-09-21 13:57 | Emergency (ER) | END 2017-09-21 20:21 | disposition home or self-care (01) ==